=== PATIENT | male | born 1955 | race Caucasian/White ===

== ENCOUNTER 2016-06-07 19:11 | Emergency (ER) | payer OTHER ==
[2016-06-07] MEDS ORDERED: SULFAMETH/TRIMETH DS 800/160 MG TABLET PO STA (19:37)
[2016-06-07] MEDS ORDERED: HYDROcod/ACETAM 5/325 MG TABLET PO STA (19:37)
[2016-06-07] MEDS ORDERED: CEPHALEXIN 250 MG CAPSULE PO STA (19:37)
[2016-06-07] MEDS ORDERED: CEPHALEXIN 250 MG CAPSULE PO ONE (19:41)
[2016-06-07] MEDS ORDERED: HYDROcod/ACETAM 5/325 MG TABLET ONE (19:41)
[2016-06-07] MEDS ORDERED: SULFAMETH/TRIMETH DS 800/160 MG TABLET PO ONE (19:42)
[2016-06-07] MEDS ORDERED: LIDOCAINE 1%-EPI 1:100000 20 ML MDV ONE (19:44)
== END 2016-06-07 20:15 | disposition home or self-care (01) ==
DX: L02.31 Cutaneous abscess of buttock (principal); M19.90 Unspecified osteoarthritis, unspecified site; F17.200 Nicotine dependence, unspecified, uncomplicated; R03.0 Elevated blood-pressure reading, without diagnosis of hypertension
CPT/HCPCS: 10060; 87070; 87205; 99283; A9270

== ENCOUNTER 2016-06-09 | Emergency (ER) | payer OTHER | END 2016-06-09 13:31 | disposition home or self-care (01) ==

== ENCOUNTER 2016-07-12 19:35 | Emergency (ER) | payer OTHER ==
[2016-07-12 19:46] VITALS: BP 123/76
--- NOTE | 2016-07-12 20:19 | ED Physician Documentation ---
History of Present Illness - Stated complaint Stated Complaint: LT ARM PX - Chief complaint Chief Complaint: Ext Problem - History obtained from History obtained from: Patient, Family - History of Present Illness Timing: Other (several months) Pain level max: 1 Pain level now: 1 Improved by: nothing Worsened by: palpation - Additonal information Additional information: States noted a small swelling to the volar aspect of the left forearm for the past several weeks. Review of Systems Constitutional: denies: Fever, Chills Skin: denies: Rash PD PAST MEDICAL HISTORY - Past Medical History Past Medical History: Yes : Other Musculoskeletal: Osteoarthritis - Past Surgical History Past Surgical History: Yes General: Cholecystectomy - Present Medications Home Medications: Ambulatory Orders Medication Instructions Recorded Confirmed No Known Home Medications [No 07/12/16 07/12/16 Known Home Medications] - Allergies Allergies/Adverse Reactions: Allergies Allergy/AdvReac Type Severity Reaction Status Date / Time No Known Drug Allergies Allergy Verified 06/07/16 19:32 - Social History Does the pt smoke?: Yes Smoking Status: Current every day smoker Does the pt drink ETOH?: No Does the pt have substance abuse?: No - Immunizations Immunizations are current?: Yes - POLST Patient has POLST: No PD ED PE NORMAL - Vitals Vital signs reviewed: Yes - General General: Alert and oriented X 3, No acute distress - Derm Derm: Warm and dry - Extremities Extremities: Other (L forearm volar aspect - 1cm, mobile flesh colored cyst. ) - Neuro Neuro: Alert and oriented X 3 Results - Vitals Vitals: Vital Signs - 24 hr 07/12/16 19:43 Temperature 36.6 C Heart Rate 63 Respiratory 16 Rate Blood Pressure 123/76 O2 Saturation 100 Oxygen O2 Source Room air PD MEDICAL DECISION MAKING - ED course Complexity details: considered differential, d/w patient, d/w family ED course: Patient presents to the emergency department with a small cyst to the left forearm. This is on the volar aspect. Bedside ultrasound confirms the cyst. There is no evidence of infection. Will refer him back to his PCP for further evaluation. Patient counseled regarding signs and symptoms for which I believe and urgent re-evaluation would be necessary. Patient with good understanding of and agreement to plan and is comfortable going home at this time This document was made in part using voice recognition software. While efforts are made to proofread this document, sound alike and grammatical errors may occur. Departure - Departure Disposition: 01 Home, Self Care Clinical Impression: Cyst Condition: Good Instructions: ED Cyst Sebaceous Follow-Up: Naomie Nava MD [Primary Care Provider] - Within 1 week Comments: Return if you worsen. You can follow up with your doctor to talk about removal of this. Discharge Date/Time: 07/12/16 20:24
== END 2016-07-12 20:24 | disposition home or self-care (01) ==
LOC: ED 19:35
DX: L72.9 Follicular cyst of the skin and subcutaneous tissue, unspecified (principal); M19.90 Unspecified osteoarthritis, unspecified site; F17.200 Nicotine dependence, unspecified, uncomplicated
CPT/HCPCS: 99282; 99283

== ENCOUNTER 2016-09-29 04:10 | Emergency (ER) | payer OTHER ==
[2016-09-29 04:22] VITALS: BP 135/76
--- NOTE | 2016-09-29 04:23 | ED Physician Documentation ---
History of Present Illness - Stated complaint Stated Complaint: WEAKNESS,HEADACHE - Chief complaint Chief Complaint: General - History obtained from History obtained from: Patient - History of Present Illness Timing: Yesterday Improved by: no ameliorating factors Worsened by: no exacerbating factors - Additonal information Additional information: since yesterday morning, patient has had nasal/sinus congestion, dry/CADDIE cough, generalized body aches, fatigue Review of Systems Constitutional: reports: Myalgias, Fatigue. denies: Fever, Chills, Sweats Ears: denies: Ear pain Nose: reports: Congestion, Sinus pressure / pain Throat: denies: Sore throat Cardiac: denies: Chest pain / pressure Respiratory: reports: Cough. denies: Dyspnea GI: denies: Abdominal Pain PD PAST MEDICAL HISTORY - Past Medical History : Other Musculoskeletal: Osteoarthritis - Past Surgical History Past Surgical History: Yes General: Cholecystectomy - Present Medications Home Medications: Ambulatory Orders Medication Instructions Recorded Confirmed No Known Home Medications [No 07/12/16 07/12/16 Known Home Medications] - Allergies Allergies/Adverse Reactions: Allergies Allergy/AdvReac Type Severity Reaction Status Date / Time No Known Drug Allergies Allergy Verified 09/29/16 04:22 - Social History Does the pt smoke?: Yes Smoking Status: Current every day smoker Does the pt drink ETOH?: No Does the pt have substance abuse?: No - Immunizations Immunizations are current?: Yes - POLST Patient has POLST: No PD ED PE NORMAL - Vitals Vital signs reviewed: Yes - General General: Alert and oriented X 3, No acute distress, Well developed/nourished - HEENT HEENT: PERRL, EOMI, Moist mucous membranes, Pharynx benign - Cardiac Cardiac: RRR, No murmur - Respiratory Respiratory: No respiratory distress, Clear bilaterally Results - Vitals Vitals: Vital Signs - 24 hr 09/29/16 04:19 Temperature 36.6 C Heart Rate 78 Respiratory 17 Rate Blood Pressure 135/76 H O2 Saturation 98 Oxygen O2 Source Room air PD MEDICAL DECISION MAKING - ED course Complexity details: reviewed old records, considered differential, d/w patient Departure - Departure Disposition: 01 Home, Self Care Clinical Impression: Viral URI, Sinusitis Condition: Good Instructions: ED Sinusitis No Abx, ED Viral Syndrome Follow-Up: ALLEN Mejia [Provider Group] (3-5 days if symptoms have not resolved) Forms: Activity restrictions Discharge Date/Time: 09/29/16 04:41
== END 2016-09-29 04:41 | disposition home or self-care (01) ==
LOC: ED 04:10
DX: J06.9 Acute upper respiratory infection, unspecified (principal); B97.89 Other viral agents as the cause of diseases classified elsewhere; J32.9 Chronic sinusitis, unspecified; F17.200 Nicotine dependence, unspecified, uncomplicated
CPT/HCPCS: 99282; 99283

== ENCOUNTER 2017-02-15 11:16 | Emergency (ER) | payer OTHER ==
[2017-02-15 12:06] LABS: BASOPHILS # (AUTO) 0.1 10^3/uL (0.0-0.1); BASOPHILS % (AUTO) 0.7 %; EOSINOPHILS # (AUTO) 0.2 10^3/uL (0.0-0.7); EOSINOPHILS % (AUTO) 1.9 %; HCT - HEMATOCRIT 44.9 % (42.0-52.0); HGB - HEMOGLOBIN 15.5 g/dL (14.0-18.0); LYMPHOCYTES # (AUTO) 2.3 10^3/uL (1.5-3.5); LYMPHOCYTES % (AUTO) 22.5 %; MEAN CORPUSCULAR HEMOGLOBIN 31.4 pg (27.0-31.0); MEAN CORPUSCULAR HGB CONC 34.4 g/dL (32.0-36.0); MEAN CORPUSCULAR VOLUME 91.2 fL (80.0-94.0); MONOCYTES # (AUTO) 0.7 10^3/uL (0.0-1.0); MONOCYTES % (AUTO) 6.7 %; NEUTROPHILS # (AUTO) 6.9 10^3/uL (1.5-6.6); NEUTROPHILS % (AUTO) 68.2 %; NUCLEATED RED BLOOD CELLS AUTO 0.1 /100WBC; RED BLOOD COUNT 4.92 10^6/uL (4.70-6.10); RED CELL DISTRIBUTION WIDTH 14.1 % (12.0-15.0); UNCORRECTED WHITE BLOOD COUNT 10.2 x10^3/uL; WHITE BLOOD COUNT 10.2 x10^3/uL (4.8-10.8)
[2017-02-15 12:17] LABS: ALBUMIN/GLOBULIN RATIO 1.2 (1.0-2.2); BILIRUBIN,TOTAL 0.4 mg/dL (0.2-1.0); CALCIUM 9.4 mg/dL (8.5-10.3); CREATININE 0.9 mg/dL (0.6-1.2); POTASSIUM 3.9 mmol/L (3.5-5.0); TOTAL PROTEIN 7.2 g/dL (6.7-8.2)
--- NOTE | 2017-02-15 12:37 | ED Physician Documentation ---
PD HPI ABD PAIN - Stated complaint Stated Complaint: ABD PX - Chief complaint Chief Complaint: Abd Pain - History obtained from History obtained from: Patient - History of Present Illness Timing - onset: Other (61-year-old gentleman with history of remote cholecystectomy presents with mid abdominal pain radiating towards the flanks since 9 AM. It started suddenly while at work. It is somewhat better now, and he declines pain medication but it is not completely resolved. There was some nausea but no vomiting. He has never had this before. He has had normal bowel movements recently although he mentions it was a bit dark this morning.) Review of Systems Ten Systems: 10 systems reviewed and negative Constitutional: denies: Fever, Chills Cardiac: denies: Chest pain / pressure, Palpitations Respiratory: denies: Dyspnea, Cough GI: reports: Abdominal Pain, Nausea, Bloody / black stool. denies: Vomiting, Constipation, Diarrhea, Hematemesis PD PAST MEDICAL HISTORY - Past Medical History Past Medical History: Yes Cardiovascular: None Respiratory: None : Other Musculoskeletal: Osteoarthritis - Past Surgical History Past Surgical History: Yes General: Cholecystectomy - Present Medications Home Medications: Ambulatory Orders Medication Instructions Recorded Confirmed No Known Home Medications [No 07/12/16 02/15/17 Known Home Medications] - Allergies Allergies/Adverse Reactions: Allergies Allergy/AdvReac Type Severity Reaction Status Date / Time No Known Drug Allergies Allergy Verified 02/15/17 11:26 - Social History Does the pt smoke?: Yes Smoking Status: Current every day smoker Does the pt drink ETOH?: Yes Does the pt have substance abuse?: No - Immunizations Immunizations are current?: Yes - POLST Patient has POLST: No PD ED PE NORMAL - Vitals Vital signs reviewed: Yes - General General: Alert and oriented X 3, No acute distress - HEENT HEENT: PERRL, EOMI - Neck Neck: Supple, no meningeal sign, No bony TTP - Cardiac Cardiac: RRR, No murmur - Respiratory Respiratory: No respiratory distress, Clear bilaterally - Abdomen Abdomen: Other (Soft with diminished but not absent bowel tones, mild right lower quadrant tenderness without guarding or rebound.) - Male Male : Other (Brown guaiac negative stool, note made of multiple sebaceous glands and cysts as well as external hemorrhoids.) - Derm Derm: Normal color, Warm and dry - Neuro Neuro: Alert and oriented X 3, Normal speech - Psych Psych: Normal mood, Normal affect Results - Vitals Vitals: Vital Signs - 24 hr 02/15/17 02/15/17 02/15/17 11:23 11:34 12:14 Temperature 36.4 C L Heart Rate 61 63 64 Respiratory 18 16 14 Rate Blood Pressure 159/84 H 145/86 H O2 Saturation 97 100 97 02/15/17 14:07 Temperature Heart Rate 64 Respiratory 15 Rate Blood Pressure 116/63 O2 Saturation 98 Oxygen O2 Source Room air - EKG (time done) 1250 Rate: Rate (enter#) (59) Rhythm: NSR [place]: Normal Intervals: Prolonged MA (borderline 207 msec), Other (LAFB) Ischemia: No: ST elevation c/w ischemia Computer interpretation: Agree with computer - Labs Labs: Laboratory Tests 02/15/17 02/15/17 02/15/17 11:55 11:55 13:01 WBC 10.2 RBC 4.92 Hgb 15.5 Hct 44.9 MCV 91.2 MCH 31.4 H MCHC 34.4 RDW 14.1 Plt Count 217 MPV 8.0 Neut # 6.9 H Lymph # 2.3 [place] # 0.7 Eos # 0.2 Baso # 0.1 Absolute Nucleated RBC 0.01 Nucleated RBC % 0.1 Sodium 138 Potassium 3.9 Chloride 102 Carbon Dioxide 26 Anion Gap 10.0 BUN 10 Creatinine 0.9 Estimated GFR (MDRD) 86 L Glucose 108 H Calcium 9.4 Total Bilirubin 0.4 AST 25 ALT 22 Alkaline Phosphatase 100 Total Protein 7.2 Albumin 3.9 Globulin 3.3 Albumin/Globulin Ratio 1.2 Lipase 15 L Urine Color YELLOW Urine Clarity CLEAR Urine pH 7.0 Ur Specific [place] 1.020 Urine Protein NEGATIVE Urine Glucose (UA) NEGATIVE Urine Ketones TRACE Urine Occult Blood NEGATIVE Urine Nitrite NEGATIVE Urine Bilirubin NEGATIVE Urine Urobilinogen 0.2 (NORMAL) Ur Leukocyte Esterase TRACE H Urine RBC 0-5 Urine WBC 0-3 Ur Squamous Epith Cells NONE SEEN Urine Bacteria Rare Ur Microscopic Review INDICATED Urine Culture Comments INDICATED - Rads (name of study) CT A/P Radiology: EMP read contemporaneously (Dilated mid small bowel with small bowel mesenteric edema or inflammation consistent with a partial mid small bowel obstruction versus focal enteritis. Very small free fluid, prostatic enlargement, incidental renal cyst and complicated renal cyst unchanged since 2015, small fat-containing right inguinal hernia.) PD MEDICAL DECISION MAKING - ED course ED course: 61-year-old gentleman presents with acute abdominal pain, has been found to have a partial mid small bowel obstruction, I spoke with our surgeon on the phone, Dr. Mendoza who was concerned about the small amount of free fluid found on the examination and given that felt there was a high suspicion that the patient would progress to requiring a surgical procedure and recommended the patient be transferred as the operating room is closed for renovations for the next 3 days. Accepted by Monae the hospitalist at [facility] at 2:58 PM pending that I also speak with the surgeon there as well and the transfer supervisor extrusion will call me back for that consultation. Spoke with the surgeon there, Dr Larsen at [phone] Departure - Departure Disposition: 02 Transfer Acute Care Hosp Clinical Impression: Small bowel obstruction Condition: Stable
[2017-02-15] MEDS ORDERED: IOPAMIDOL-300 100 ML VIAL ONE (12:48)
[2017-02-15] MEDS ORDERED: IOPAMIDOL-300 100 ML VIAL IVP ONE (12:51)
[2017-02-15 13:23] LABS: BILIRUBIN,URINE NEGATIVE (NEGATIVE)
[2017-02-15 13:25] LABS: UA w/ MICROSCOPIC CHARGE YES
[2017-02-15 13:37] LABS: UR CULTURE IF IND INDICATED; WBC,URINE 0-3 /HPF (0-3)
[2017-02-15] MEDS ORDERED: MORPHINE 10 MG/ML VIAL IVP STA (13:44)
--- NOTE | 2017-02-15 13:48 | CT Preliminary Report ---
Exam: CT ABDOMEN/PELVIS W/ IMPRESSION: 1. Dilated mid small bowel with small bowel mesenteric edema or inflammation. Findings consistent wit h a partial mid small bowel obstruction versus focal enteritis. 2. Very small free fluid. 3. Prostate enlargement. 4. Incidental simple renal cysts and a complex renal cyst in the upper pole of the right kidney is un changed since 2015. 5. Small fat-containing right inguinal hernia. [facility] SITE ID: [id number]
--- NOTE | 2017-02-15 13:51 | CT Report ---
EXAM: CT ABDOMEN AND PELVIS EXAM DATE: 02/15/2017 01:14 PM. CLINICAL HISTORY: IV only, mid abd pain, RLQ TTP. COMPARISONS: 06/21/2014. TECHNIQUE: Routine helical CT imaging was performed through the abdomen and pelvis. IV contrast: 100M L OF ISOVUE 300. Enteric contrast: No. Reconstructions: Coronal and sagittal. In accordance with CT protocol optimization, one or more of the following dose reduction techniques w ere utilized for this exam: automated exposure control, adjustment of mA and/or KV based on patient s ize, or use of iterative reconstructive technique. FINDINGS: Lung Bases: Unremarkable. Liver: The liver is normal in size. There are 2 small round subcentimeter low-density lesions in the liver which are too small to characterize but probably cysts. Gallbladder/Bile Ducts: Gallbladder is absent. Spleen: Normal. Pancreas: Normal. Adrenal Glands: Normal. Kidneys: There is a small exophytic hyperdense nodule in the upper pole of the right kidney with a de nsity of 66 Hounsfield units. Density measures 1 cm in diameter. This density is unchanged in size si nce 06/21/2014. There is contrast in the collecting system of both kidneys. There are bilateral renal cysts. No hydronephrosis. Peritoneal Cavity/Bowel: There are mildly dilated small bowel loops in the upper abdomen with a few a ir-fluid levels. Small bowel loops in the upper abdomen measure up to 2.8 cm in diameter. There is me senteric edema of the small bowel mesentery in the pelvis at the mid small bowel level. The distal sm all bowel appears decompressed. There is a very small amount of free fluid. No abscess or free air. Pelvic Organs: There is a fat-containing right inguinal hernia. The prostate appears enlarged and het erogeneous. The prostate measures 6.8 x 6.7 x 8.2 cm. Vasculature: No aneurysms or other significant abnormality. Other: None. IMPRESSION: 1. Dilated mid small bowel with small bowel mesenteric edema or inflammation. Findings consistent wit h a partial mid small bowel obstruction versus focal enteritis. 2. Very small free fluid. 3. Prostate enlargement. 4. Incidental simple renal cysts and a complex renal cyst in the upper pole of the right kidney is un changed since 2014. 5. Small fat-containing right inguinal hernia. [facility] Referring Provider Line: [phone] SITE ID: [id number]
[2017-02-15] MEDS ORDERED: MORPHINE 10 MG/ML VIAL ONE (14:09)
[2017-02-15] MEDS ORDERED: SODIUM CHLORIDE 0.9% 1,000 ML IV ONE (15:07)
[2017-02-15 16:20] VITALS: BP 136/82
== END 2017-02-15 16:47 | disposition short-term general hospital (02) ==
LOC: ED 11:16
DX: K56.609 Unspecified intestinal obstruction, unspecified as to partial versus complete obstruction (principal); I44.4 Left anterior fascicular block; R94.31 Abnormal electrocardiogram [ECG] [EKG]; M19.90 Unspecified osteoarthritis, unspecified site; F17.200 Nicotine dependence, unspecified, uncomplicated
CPT/HCPCS: 36415; 74177; 80053; 81001; 83690; 85025; 87086; 93005; 96361; 96374; 99284; 99285; Q9967; 81003

== ENCOUNTER 2017-02-15 16:49 | Outpatient (CLI) | payer OTHER | END 2017-02-15 16:50 | disposition short-term general hospital (02) | LOC: EMS 16:49 | PROVIDERS: ATTEND Surgery | DX: K56.609 Unspecified intestinal obstruction, unspecified as to partial versus complete obstruction (principal) | CPT/HCPCS: A0425; A0426 ==

== ENCOUNTER 2017-06-30 04:25 | Emergency (ER) | payer OTHER ==
--- NOTE | 2017-06-30 05:21 | ED Physician Documentation ---
PD HPI ABD PAIN - Stated complaint Stated Complaint: ABD PX - Chief complaint Chief Complaint: Abd Pain - History obtained from History obtained from: Patient - History of Present Illness Timing - onset: Yesterday Timing - details: Gradual onset, Intermittant, Waxing and waning Pain level now: 2 Quality: Cramping, Pain Location: All over / everywhere (varies in location, predominantly left-sided and periumbilical) Radiation: Other (no radiation) Improved by: Other (no ameliorating factors) Worsened by: Other (no apparent exacerbating factors) Associated symptoms: No: Fever, Nausea, Vomiting, Diarrhea, Constipation, Dysuria Similar symptoms before: Other (evaluated for similar symptoms in this ED in the past, w/u included unremarkable as well as SBO) Review of Systems Constitutional: reports: Reviewed and negative Cardiac: reports: Reviewed and negative Respiratory: reports: Reviewed and negative GI: reports: Abdominal Pain. denies: Nausea, Vomiting, Constipation, Diarrhea : denies: Dysuria, Frequency PD PAST MEDICAL HISTORY - Past Medical History Past Medical History: Yes Cardiovascular: None Respiratory: None GI: Cholelithiasis : Other Musculoskeletal: Osteoarthritis - Past Surgical History Past Surgical History: Yes General: Cholecystectomy - Present Medications Home Medications: Ambulatory Orders Medication Instructions Recorded Confirmed No Known Home Medications [No 07/12/16 02/15/17 Known Home Medications] - Allergies Allergies/Adverse Reactions: Allergies Allergy/AdvReac Type Severity Reaction Status Date / Time No Known Drug Allergies Allergy Verified 06/30/17 04:30 - Social History Does the pt smoke?: Yes Smoking Status: Current every day smoker Does the pt drink ETOH?: Yes Does the pt have substance abuse?: No - Immunizations Immunizations are current?: No Immunizations: TDAP >10years/unknown - POLST Patient has POLST: No PD ED PE NORMAL - Vitals Vital signs reviewed: Yes - General General: Alert and oriented X 3, No acute distress, Well developed/nourished - HEENT HEENT: Moist mucous membranes - Cardiac Cardiac: RRR, No murmur - Respiratory Respiratory: No respiratory distress, Clear bilaterally - Abdomen Abdomen: Normal bowel sounds, Soft, Non tender, Non distended - Derm Derm: Normal color, Warm and dry Results - Vitals Vitals: Oxygen O2 Source Room air - Labs Labs: Laboratory Tests 06/30/17 06/30/17 06/30/17 05:58 06:25 06:25 WBC 9.2 RBC 5.15 Hgb 15.8 Hct 47.6 MCV 92.4 MCH 30.7 MCHC 33.2 RDW 13.9 Plt Count 228 MPV 7.9 Neut # 6.2 Lymph # 2.1 [place] # 0.7 Eos # 0.2 Baso # 0.1 Absolute Nucleated RBC 0.00 Nucleated RBC % 0.0 Sodium 138 Potassium 4.6 Chloride 106 Carbon Dioxide 27 Anion Gap 5.0 L BUN 11 Creatinine 0.8 Estimated GFR (MDRD) 99 Glucose 107 H Calcium 9.1 Total Bilirubin 0.7 AST 21 ALT 23 Alkaline Phosphatase 90 Total Protein 7.0 Albumin 3.7 Globulin 3.3 Albumin/Globulin Ratio 1.1 Lipase 15 L Urine Color YELLOW Urine Clarity CLEAR Urine pH 6.0 Ur Specific [place] 1.020 Urine Protein NEGATIVE Urine Glucose (UA) NEGATIVE Urine Ketones NEGATIVE Urine Occult Blood NEGATIVE Urine Nitrite NEGATIVE Urine Bilirubin NEGATIVE Urine Urobilinogen 0.2 (NORMAL) Ur Leukocyte Esterase NEGATIVE Ur Microscopic Review NOT INDICATED Urine Culture Comments NOT INDICATED - Rads (name of study) acute abdomen xrays Radiology: Prelim report reviewed, See rad report PD MEDICAL DECISION MAKING - ED course Complexity details: reviewed old records, reviewed results, re-evaluated patient , considered differential, d/w patient ED course: patient presents with less than 24 hours of mild abdominal discomfort without nausea, vomiting, or diarrhea. His abdominal exam is entirely benign. unremarkable w/u. his chief concern was he felt he waited too long when he last came to this ED and was diagnosed with SBO (he says that the receiving hospital did further evaluation including upper and lower endoscopy and did not come to a specific diagnosis; he says no surgery was performed), and thus he did not want to wait until symptoms worsened. he is reassured with the unremarkable test results at this time Departure - Departure Disposition: 01 Home, Self Care Clinical Impression: Abdominal pain Condition: Good Instructions: ED Abdominal Pain Unkn Cause Male Forms: Activity restrictions Discharge Date/Time: 06/30/17 08:09
[2017-06-30 06:18] LABS: BILIRUBIN,URINE NEGATIVE (NEGATIVE); GLUCOSE, URINE (UA) NEGATIVE (NEGATIVE); KETONES,URINE (UA) NEGATIVE (NEGATIVE); LEUKOCYTE ESTERASE, URINE NEGATIVE (NEGATIVE); NITRITE,URINE NEGATIVE (NEGATIVE); OCCULT BLOOD,URINE NEGATIVE (NEGATIVE); PROTEIN,URINE NEGATIVE (NEGATIVE); UROBILINOGEN,URINE 0.2 (NORMAL) E.U./dL (NORMAL)
[2017-06-30 06:21] LABS: CLARITY,URINE CLEAR (CLEAR)
[2017-06-30 06:34] LABS: BASOPHILS # (AUTO) 0.1 10^3/uL (0.0-0.1); BASOPHILS % (AUTO) 0.6 %; EOSINOPHILS # (AUTO) 0.2 10^3/uL (0.0-0.7); EOSINOPHILS % (AUTO) 2.1 %; HGB - HEMOGLOBIN 15.8 g/dL (14.0-18.0); LYMPHOCYTES # (AUTO) 2.1 10^3/uL (1.5-3.5); LYMPHOCYTES % (AUTO) 22.7 %; MEAN CORPUSCULAR HEMOGLOBIN 30.7 pg (27.0-31.0); MEAN CORPUSCULAR HGB CONC 33.2 g/dL (32.0-36.0); MEAN CORPUSCULAR VOLUME 92.4 fL (80.0-94.0); MEAN PLATELET VOLUME 7.9 fL (7.4-11.4); MONOCYTES # (AUTO) 0.7 10^3/uL (0.0-1.0); MONOCYTES % (AUTO) 7.3 %; NEUTROPHILS # (AUTO) 6.2 10^3/uL (1.5-6.6); NEUTROPHILS % (AUTO) 67.3 %; PLT - PLATELET COUNT 228 10^3/uL (130-450); RED BLOOD COUNT 5.15 10^6/uL (4.70-6.10); RED CELL DISTRIBUTION WIDTH 13.9 % (12.0-15.0); WHITE BLOOD COUNT 9.2 x10^3/uL (4.8-10.8)
--- NOTE | 2017-06-30 06:38 | XRAY Report ---
EXAM: ABDOMINAL SERIES AND PA CHEST EXAM DATE: 06/30/2017 06:21 AM. CLINICAL HISTORY: Abdominal pain. COMPARISON: Chest, 06/27/2013. TECHNIQUE: 2 views abdomen and 1 view chest. FINDINGS: CHEST: Lungs/Pleura: No alveolar consolidation or pleural effusion seen. No pneumothorax. Mediastinum: Within exam limitations, cardiomediastinal contour is normal. ABDOMEN: Bowel Gas Pattern: No dilated loops or abnormal air-fluid levels. Moderate to large amount of stool i n the colon. Free Air: None. Other: Status post cholecystectomy. IMPRESSION: 1. Normal gas pattern with moderate to large amount of stool in the colon. [facility] Referring Provider Line: [phone] SITE ID: [id number]
--- NOTE | 2017-06-30 06:38 | XRAY Preliminary Report ---
Exam: XR ABDOMEN ACUTE IMPRESSION: 1. Normal gas pattern with moderate to large amount of stool in the colon. [facility] SITE ID: [id number]
[2017-06-30 06:42] LABS: ALBUMIN 3.7 g/dL (3.2-5.5); ALBUMIN/GLOBULIN RATIO 1.1 (1.0-2.2); BILIRUBIN,TOTAL 0.7 mg/dL (0.2-1.0); CALCIUM 9.1 mg/dL (8.5-10.3); CREATININE 0.8 mg/dL (0.6-1.2)
[2017-06-30] MEDS ORDERED: MAGNESIUM CITRATE 296 ML BOTTLE PO STA (07:54)
[2017-06-30 08:06] VITALS: BP 123/72
== END 2017-06-30 08:09 | disposition home or self-care (01) ==
LOC: ED 04:25
DX: R10.9 Unspecified abdominal pain (principal); F17.200 Nicotine dependence, unspecified, uncomplicated
CPT/HCPCS: 36415; 74022; 80053; 81003; 83690; 85025; 99283; A9270; 81001; 87086

== ENCOUNTER 2017-08-11 10:58 | Emergency (ER) | payer OTHER ==
[2017-08-11 12:11] LABS: BASOPHILS # (AUTO) 0.1 10^3/uL (0.0-0.1); BASOPHILS % (AUTO) 0.5 %; EOSINOPHILS % (AUTO) 0.3 %; HGB - HEMOGLOBIN 15.4 g/dL (14.0-18.0); LYMPHOCYTES # (AUTO) 1.2 10^3/uL (1.5-3.5); LYMPHOCYTES % (AUTO) 9.5 %; MEAN CORPUSCULAR HEMOGLOBIN 31.2 pg (27.0-31.0); MEAN CORPUSCULAR HGB CONC 33.8 g/dL (32.0-36.0); MEAN CORPUSCULAR VOLUME 92.3 fL (80.0-94.0); MEAN PLATELET VOLUME 7.9 fL (7.4-11.4); MONOCYTES # (AUTO) 0.7 10^3/uL (0.0-1.0); MONOCYTES % (AUTO) 5.8 %; NEUTROPHILS # (AUTO) 10.6 10^3/uL (1.5-6.6); NEUTROPHILS % (AUTO) 83.9 %; PLT - PLATELET COUNT 207 10^3/uL (130-450); RED BLOOD COUNT 4.95 10^6/uL (4.70-6.10); WHITE BLOOD COUNT 12.7 x10^3/uL (4.8-10.8)
[2017-08-11 12:15] LABS: BILIRUBIN,URINE NEGATIVE (NEGATIVE); GLUCOSE, URINE (UA) NEGATIVE (NEGATIVE); KETONES,URINE (UA) NEGATIVE (NEGATIVE); LEUKOCYTE ESTERASE, URINE NEGATIVE (NEGATIVE); NITRITE,URINE NEGATIVE (NEGATIVE); OCCULT BLOOD,URINE NEGATIVE (NEGATIVE); PROTEIN,URINE NEGATIVE (NEGATIVE); UROBILINOGEN,URINE 0.2 (NORMAL) E.U./dL (NORMAL)
[2017-08-11 12:16] LABS: ALBUMIN 3.5 g/dL (3.2-5.5); CALCIUM 8.7 mg/dL (8.5-10.3); CREATININE 0.9 mg/dL (0.6-1.2)
[2017-08-11 12:20] LABS: CLARITY,URINE CLEAR (CLEAR)
--- NOTE | 2017-08-11 13:00 | ED Physician Documentation ---
PD HPI ABD PAIN - Stated complaint Stated Complaint: ABD PX/HEADACHE - Chief complaint Chief Complaint: Abd Pain - History obtained from History obtained from: Patient - History of Present Illness Timing - onset: Today Timing - duration: Hours (few) Timing - details: Abrupt onset, Still present, Waxing and waning Quality: Cramping, Aching, Pain Location: All over / everywhere Radiation: No: Lower back Improved by: No: Eating, Position Worsened by: Eating, Palpation. No: Position Associated symptoms: Nausea. No: Fever, Vomiting, Diarrhea, Constipation (had had normal but firm BMs recently, but none today nor yesterday.) Similar symptoms before: Diagnosis (has had episodes that resolve with fluids and meds; and has had a bowel obstruction in the past, did not need surgery but was in hospital 5 days.) Review of Systems Constitutional: denies: Fever, Chills Nose: denies: Rhinorrhea / runny nose, Congestion Throat: denies: Sore throat Respiratory: denies: Cough GI: reports: Abdominal Pain, Nausea. denies: Abdominal Swelling, Vomiting, Diarrhea, Hematemesis, Bloody / black stool : denies: Dysuria, Frequency Skin: denies: Rash, Lesions PD PAST MEDICAL HISTORY - Past Medical History Past Medical History: Yes Cardiovascular: None Respiratory: None GI: Cholelithiasis : Other Musculoskeletal: Osteoarthritis Other Past Medical History: bowel obstruction relief with NG - Past Surgical History Past Surgical History: Yes General: Cholecystectomy - Present Medications Home Medications: Ambulatory Orders Medication Instructions Recorded Confirmed No Known Home Medications [No 07/12/16 08/11/17 Known Home Medications] - Allergies Allergies/Adverse Reactions: Allergies Allergy/AdvReac Type Severity Reaction Status Date / Time No Known Drug Allergies Allergy Verified 08/11/17 12:55 - Social History Does the pt smoke?: Yes Smoking Status: Current every day smoker Does the pt drink ETOH?: Yes Does the pt have substance abuse?: No - Immunizations Immunizations are current?: No Immunizations: TDAP >10years/unknown - POLST Patient has POLST: No PD ED PE NORMAL - Vitals Vital signs reviewed: Yes - General General: Alert and oriented X 3, No acute distress, Well developed/nourished - HEENT HEENT: Pharynx benign - Neck Neck: Supple, no meningeal sign, No adenopathy - Cardiac Cardiac: RRR, No murmur - Respiratory Respiratory: Clear bilaterally - Abdomen Abdomen: Normal bowel sounds, Soft, Non distended, No organomegaly, Other ( tender mid abdomen without guarding nor percussion tenderness. ) - Derm Derm: Normal color, Warm and dry - Extremities Extremities: No deformity, No tenderness to palpate, No edema, No calf tenderness / cord - Neuro Neuro: Alert and oriented X 3, No motor deficit, Normal speech Results - Vitals Vitals: Vital Signs - 24 hr 08/11/17 08/11/17 08/11/17 11:13 12:58 14:39 Temperature 37.6 C H 38.2 C H 36.9 C Heart Rate 77 75 72 Respiratory 16 18 16 Rate Blood Pressure 132/66 H 124/75 124/62 O2 Saturation 98 98 100 Oxygen O2 Source Room air - Labs Labs: Laboratory Tests 08/11/17 08/11/17 08/11/17 11:50 11:57 11:57 WBC 12.7 H RBC 4.95 Hgb 15.4 Hct 45.7 MCV 92.3 MCH 31.2 H MCHC 33.8 RDW 14.0 Plt Count 207 MPV 7.9 Neut # 10.6 H Lymph # 1.2 L [place] # 0.7 Eos # 0.0 Baso # 0.1 Absolute Nucleated RBC 0.00 Nucleated RBC % 0.0 Sodium 133 L Potassium 3.4 L Chloride 100 L Carbon Dioxide 25 Anion Gap 8.0 BUN 11 Creatinine 0.9 Estimated GFR (MDRD) 86 L Glucose 106 H Calcium 8.7 Total Bilirubin 1.0 AST 19 ALT 17 Alkaline Phosphatase 95 Total Protein 7.0 Albumin 3.5 Globulin 3.5 Albumin/Globulin Ratio 1.0 Lipase 16 L Urine Color YELLOW Urine Clarity CLEAR Urine pH 6.0 Ur Specific [place] 1.025 Urine Protein NEGATIVE Urine Glucose (UA) NEGATIVE Urine Ketones NEGATIVE Urine Occult Blood NEGATIVE Urine Nitrite NEGATIVE Urine Bilirubin NEGATIVE Urine Urobilinogen 0.2 (NORMAL) Ur Leukocyte Esterase NEGATIVE Ur Microscopic Review NOT INDICATED Urine Culture Comments NOT INDICATED PD MEDICAL DECISION MAKING - ED course Complexity details: considered differential (has history of SBO so is concerned about it, but clinically low suspicion. Given some meds and fluids and feels okay. Defer imaging. ), d/w patient Departure - Departure Disposition: 01 Home, Self Care Clinical Impression: Abdominal pain Clinical Impression: (Ruled Out): Small bowel obstruction Condition: Stable Record reviewed to determine appropriate education?: Yes Instructions: ED Abdominal Pain Unkn Cause Comments: Drink lots of fluids. Liquid or soft food only today and then progress to normal if doing okay after that. Tylenol if needed for mild pains. Use a daily stool softener. Return if symptoms develop again or other concerns. This may be a little partial blockage or so but seems to be resolving and so commonly would be treated at home with the above instructions. Forms: Activity restrictions Discharge Date/Time: 08/11/17 14:41
[2017-08-11] MEDS ORDERED: KETOROLAC 60 MG/2 ML VIAL IVP STA (13:19)
[2017-08-11] MEDS ORDERED: DOCUSATE SODIUM 100 MG CAPSULE PO STA (13:19)
[2017-08-11] MEDS ORDERED: ONDANSETRON 4 MG/2 ML VIAL IVP STA (13:19)
[2017-08-11] MEDS ORDERED: SODIUM CHLORIDE 0.9% 1,000 ML IV ONE (13:19)
[2017-08-11 14:40] VITALS: BP 124/62
== END 2017-08-11 14:41 | disposition home or self-care (01) ==
LOC: ED 10:58
DX: R10.9 Unspecified abdominal pain (principal); F17.200 Nicotine dependence, unspecified, uncomplicated
CPT/HCPCS: 36415; 80053; 81003; 83690; 85025; 96361; 96374; 96375; 99283; 99284; A9270; 81001; 87086

== ENCOUNTER 2018-01-08 11:28 | Emergency (ER) | payer OTHER ==
--- NOTE | 2018-01-08 12:42 | ED Physician Documentation ---
PD HPI SKIN - Stated complaint Stated Complaint: MALE - Chief complaint Chief Complaint: General - History obtained from History obtained from: Patient - History of Present Illness Timing - onset: How many weeks ago (1) Timing - duration: Weeks (1) Timing - details: Gradual onset, Still present Location: Other (inguinal and scrotal area) Quality / character: Itchy, Painful, Burning Improved by: Other (just washing in baths.) Associated symptoms: No: Fever, Myalgias Contributing factors: No: Exposed to soap / lotion, Recent illness Similar symptoms before: Has not had sx before Recently seen: Not recently seen Review of Systems Constitutional: denies: Fever, Chills, Myalgias GI: denies: Nausea, Vomiting, Diarrhea : denies: Dysuria PD PAST MEDICAL HISTORY - Past Medical History Cardiovascular: None Respiratory: None Neuro: None GI: Cholelithiasis : Other HEENT: None Psych: None Musculoskeletal: Osteoarthritis - Past Surgical History Past Surgical History: Yes General: Cholecystectomy - Present Medications Home Medications: Ambulatory Orders Medication Instructions Recorded Confirmed Clotrimazole/Betamethasone Dip 1 applic TP BID #30 cream..g. 01/08/18 [Clotrimazole-Betamethasone Crm] - Allergies Allergies/Adverse Reactions: Allergies Allergy/AdvReac Type Severity Reaction Status Date / Time No Known Drug Allergies Allergy Verified 01/08/18 11:36 - Social History Does the pt smoke?: Yes Smoking Status: Current every day smoker Does the pt drink ETOH?: Yes Does the pt have substance abuse?: No - Immunizations Immunizations are current?: No Immunizations: TDAP >10years/unknown - POLST Patient has POLST: No PD ED PE NORMAL - Vitals Vital signs reviewed: Yes - General General: Alert and oriented X 3, No acute distress, Well developed/nourished - Abdomen Abdomen: Soft, Non tender - Male Male : Other (inguinal and scrotal area with redness and mild inflammation. Minimal tenderness. Redness has demarcated edge in crural area. No vesicles nor skin breakdown. ) - Back Back: No CVA TTP - Derm Derm: Normal color, Warm and dry Results - Vitals Vitals: Vital Signs - 24 hr 01/08/18 11:32 Temperature 36.1 C L Heart Rate 70 Respiratory 16 Rate Blood Pressure 127/71 O2 Saturation 100 Oxygen O2 Source Room air PD MEDICAL DECISION MAKING - Sepsis Event Vital Signs: Vital Signs - 24 hr 01/08/18 11:32 Temperature 36.1 C L Heart Rate 70 Respiratory 16 Rate Blood Pressure 127/71 O2 Saturation 100 Oxygen O2 Source Room air Departure - Departure Disposition: 01 Home, Self Care Clinical Impression: Tinea cruris Condition: Stable Record reviewed to determine appropriate education?: Yes Instructions: ED Tinea Cruris General Prescriptions: Clotrimazole/Betamethasone Dip [Clotrimazole-Betamethasone Crm] 1 applic TP BID #30 cream..g. Comments: This looks like a yeast infection in the creases. Cleanse the area with soap and water twice daily and apply the combination cream of antifungal with anti- inflammatory. Continue this until this completely cleared up to likely be a week or so. Recheck if not better over that time. Forms: Activity restrictions Discharge Date/Time: 01/08/18 12:50
[2018-01-08 12:47] VITALS: BP 142/70
== END 2018-01-08 12:50 | disposition home or self-care (01) ==
LOC: ED 11:28
DX: B35.6 Tinea cruris (principal); F17.200 Nicotine dependence, unspecified, uncomplicated
CPT/HCPCS: 99283

== ENCOUNTER 2018-01-15 18:09 | Emergency (ER) | payer OTHER ==
[2018-01-15] MEDS ORDERED: cephALEXin 250 MG CAPSULE PO STA (20:08)
[2018-01-15] MEDS ORDERED: SULFAMETH/TRIMETH DS 800/160 MG TABLET PO STA (20:08)
--- NOTE | 2018-01-15 20:12 | ED Physician Documentation ---
History of Present Illness - Stated complaint Stated Complaint: MALE - Chief complaint Chief Complaint: General - History obtained from History obtained from: Patient, Family - History of Present Illness Timing: Other (elizabet) Pain level max: 5 Pain level now: 5 - Additonal information Additional information: Patient with rash to the groin. states seen here a week ago for same. states drained pus and not improving. denies any fever, chills, nausea or vomiting. Review of Systems Constitutional: denies: Fever, Chills Ears: denies: Ear pain Nose: denies: Rhinorrhea / runny nose, Congestion Throat: denies: Sore throat Cardiac: denies: Chest pain / pressure Respiratory: denies: Cough GI: denies: Abdominal Pain, Nausea, Vomiting, Diarrhea Musculoskeletal: denies: Neck pain, Back pain Neurologic: denies: Headache PD PAST MEDICAL HISTORY - Past Medical History Past Medical History: Yes Cardiovascular: None Respiratory: None Neuro: None GI: Cholelithiasis : Other HEENT: None Psych: None Musculoskeletal: Osteoarthritis - Past Surgical History Past Surgical History: Yes General: Cholecystectomy - Present Medications Home Medications: Ambulatory Orders Medication Instructions Recorded Confirmed Clotrimazole/Betamethasone Dip 1 applic TP BID #30 cream..g. 01/08/18 [Clotrimazole-Betamethasone Crm] Cephalexin [Keflex] 500 mg PO Q6H #40 capsule 01/15/18 Nystatin 1 applic TP BID PRN #1 powder 01/15/18 Sulfamethox/Trimeth 800/160 1 each PO BID #20 tablet 01/15/18 [Bactrim Ds 800/160] - Allergies Allergies/Adverse Reactions: Allergies Allergy/AdvReac Type Severity Reaction Status Date / Time No Known Drug Allergies Allergy Verified 01/15/18 18:16 - Social History Does the pt smoke?: Yes Smoking Status: Current every day smoker Does the pt drink ETOH?: Yes Does the pt have substance abuse?: No - Immunizations Immunizations are current?: No Immunizations: TDAP >10years/unknown - POLST Patient has POLST: No PD ED PE NORMAL - Vitals Vital signs reviewed: Yes - General General: Alert and oriented X 3, No acute distress - HEENT HEENT: Moist mucous membranes - Neck Neck: Supple, no meningeal sign - Male Male : Other (perineum is erythematous, inflammed and swollen. no fluctuance. ) - Derm Derm: Warm and dry - Neuro Neuro: Alert and oriented X 3 - Psych Psych: Normal mood, Normal affect Results - Vitals Vitals: Vital Signs - 24 hr 01/15/18 18:14 Temperature 36.2 C L Heart Rate 71 Respiratory 20 Rate Blood Pressure 135/81 H O2 Saturation 98 Oxygen O2 Source Room air PD MEDICAL DECISION MAKING - ED course Complexity details: considered differential, d/w patient ED course: Patient is a 62-year-old male who presents to the emergency department with what appears to be a rash to the perineal area that has secondarily become infected. Will place on Bactrim and Keflex in addition to nystatin powder. Will attempt to dry out the area. Patient is very well-appearing, nontoxic. No drainable abscess at this point. Patient counseled regarding signs and symptoms for which I believe and urgent re-evaluation would be necessary. Patient with good understanding of and agreement to plan and is comfortable going home at this time This document was made in part using voice recognition software. While efforts are made to proofread this document, sound alike and grammatical errors may occur. - Sepsis Event Vital Signs: Vital Signs - 24 hr 01/15/18 18:14 Temperature 36.2 C L Heart Rate 71 Respiratory 20 Rate Blood Pressure 135/81 H O2 Saturation 98 Oxygen O2 Source Room air Departure - Departure Disposition: 01 Home, Self Care Clinical Impression: Cellulitis Qualifiers: Site of cellulitis: trunk Site of cellulitis of trunk: perineum Qualified Code(s): L03.315 - Cellulitis of perineum Condition: Good Instructions: ED Infec Skin Cellulitis Follow-Up: your,doctor in 3 days for wound check [Other] Prescriptions: Cephalexin [Keflex] 500 mg PO Q6H #40 capsule Nystatin 1 applic TP BID PRN #1 powder PRN Reason: rash Sulfamethox/Trimeth 800/160 [Bactrim Ds 800/160] 1 each PO BID #20 tablet Comments: Take all antibiotics until gone. Return if you worsen. This should improve over the next few days but will likely take a week or more to fully resolve. Discharge Date/Time: 01/15/18 20:23
[2018-01-15 20:22] VITALS: BP 141/91
== END 2018-01-15 20:23 | disposition home or self-care (01) ==
LOC: ED 18:09
DX: L03.315 Cellulitis of perineum (principal); F17.200 Nicotine dependence, unspecified, uncomplicated
CPT/HCPCS: 99283; A9270

== ENCOUNTER 2018-03-08 07:35 | Emergency (ER) | payer OTHER ==
[2018-03-08 07:42] VITALS: BP 142/77
--- NOTE | 2018-03-08 07:55 | ED Physician Documentation ---
PD HPI BACK INJURY - Stated complaint Stated Complaint: BACK PX - History obtained from History obtained from: Patient - History of Present Illness Location: Both, Lower Type of injury: Twist (lifting heavy furniture and felt pop/onset of low back pain) Where injury occurred: Home Timing - onset: How many days ago (4) Timing - duration: Days (4 days ago had onset of the pain and was out of work for 3 days. Improved pain and went to work today, but was feeling pain with being up and around. No new injury today.) Timing - details: Abrupt onset, Still present Quality: Pain, Spasm Worsened by: Moving, Palpating Associated symptoms: No: Fever, Weakness, Numbness, Incontinent of urine Recently seen: Not recently seen Review of Systems Constitutional: denies: Fever, Chills, Myalgias Nose: denies: Rhinorrhea / runny nose, Congestion Throat: denies: Sore throat Respiratory: denies: Cough GI: denies: Abdominal Pain, Nausea, Vomiting, Diarrhea : denies: Dysuria, Frequency Skin: denies: Rash, Lesions Neurologic: denies: Focal weakness, Numbness PD PAST MEDICAL HISTORY - Past Medical History Cardiovascular: None Respiratory: None Neuro: None GI: Cholelithiasis : Other HEENT: None Psych: None Musculoskeletal: Osteoarthritis - Past Surgical History Past Surgical History: Yes General: Cholecystectomy - Present Medications Home Medications: Ambulatory Orders Medication Instructions Recorded Confirmed Dexamethasone [Decadron] 4 mg PO DAILY #5 tablet 03/08/18 Hydrocodone/Acetaminophen [[place] 1 each PO Q6H PRN #15 tablet 03/08/18 5-325 Tablet] Ibuprofen 600 mg PO TID PRN #25 tablet 03/08/18 Methocarbamol [Robaxin] 500 mg PO Q6H PRN #30 tablet 03/08/18 - Allergies Allergies/Adverse Reactions: Allergies Allergy/AdvReac Type Severity Reaction Status Date / Time No Known Drug Allergies Allergy Verified 03/08/18 07:42 - Social History Does the pt smoke?: Yes Smoking Status: Current every day smoker Does the pt drink ETOH?: Yes Does the pt have substance abuse?: No - Immunizations Immunizations are current?: Yes Immunizations: TDAP >10years/unknown - POLST Patient has POLST: No PD ED PE NORMAL - Vitals Vital signs reviewed: Yes - General General: Alert and oriented X 3, No acute distress (sitting and moving stiffly for low back. ), Well developed/nourished - HEENT HEENT: Pharynx benign - Neck Neck: Supple, no meningeal sign, No adenopathy - Cardiac Cardiac: RRR, No murmur - Respiratory Respiratory: Clear bilaterally - Abdomen Abdomen: Soft, Non tender - Back Back: No CVA TTP, No spinal TTP, Other (tender lower lumbar muscles right more than left. No rash nor sores. ) - Derm Derm: Normal color, Warm and dry - Extremities Extremities: No tenderness to palpate, Normal ROM s pain, No edema, No calf tenderness / cord - Neuro Neuro: Alert and oriented X 3, No motor deficit, No sensory deficit, Other (2+ DTRs at knees. ) Results - Vitals Vitals: Vital Signs - 24 hr 03/08/18 07:40 Temperature 36.6 C Heart Rate 72 Respiratory 16 Rate Blood Pressure 142/77 H O2 Saturation 100 Oxygen O2 Source Room air PD MEDICAL DECISION MAKING - ED course Complexity details: reviewed old records, considered differential, d/w patient Departure - Departure Disposition: Home, Self Care Clinical Impression: Low back strain Qualifiers: Encounter type: initial encounter Qualified Code(s): S39.012A - Strain of muscle, fascia and tendon of lower back, initial encounter Condition: Stable Record reviewed to determine appropriate education?: Yes Instructions: ED Sprain Strain Lumbar Follow-Up: JAMILAH AKERS PA-C [Primary Care Provider] - Prescriptions: Dexamethasone [Decadron] 4 mg PO DAILY #5 tablet Hydrocodone/Acetaminophen [[place] 5-325 Tablet] 1 each PO Q6H PRN #15 tablet PRN Reason: Pain Ibuprofen 600 mg PO TID PRN #25 tablet PRN Reason: Pain Methocarbamol [Robaxin] 500 mg PO Q6H PRN #30 tablet PRN Reason: Spasms Comments: Rest off work a couple of days but do gentle stretching and range of motion of the back to keep it from being stiff. Heat to the low back as well. Since the ibuprofen alone has not been sufficient to get your better, I would add to it a stronger or different anti-inflammatory as well as stronger medicine for pain and spasms. Use Decadron daily for 5 more days. Robaxin muscle relaxant for stiffness and spasms and add hydrocodone if needed for pain. Follow-up with your primary care next week if not well improved. Forms: Activity restrictions Discharge Date/Time: 03/08/18 08:38
[2018-03-08] MEDS ORDERED: HYDROcod/ACETAM 5/325 MG TABLET PO STA (08:09)
[2018-03-08] MEDS ORDERED: METHOCARBAMOL 500 MG TABLET PO STA (08:09)
[2018-03-08] MEDS ORDERED: DEXAMETHASONE 10 MG/ML VIAL PO STA (08:09)
[2018-03-08] MEDS ORDERED: CHERRY SYRUP 10 ML UDC PO ONE (08:16)
== END 2018-03-08 08:38 | disposition home or self-care (01) ==
LOC: ED 07:35
DX: S39.012A Strain of muscle, fascia and tendon of lower back, initial encounter (principal); X50.0XXA Overexertion from strenuous movement or load, initial encounter; X50.9XXA Other and unspecified overexertion or strenuous movements or postures, initial encounter; Y93.89 Activity, other specified; Y92.009 Unspecified place in unspecified non-institutional (private) residence as the place of occurrence of the external cause; F17.200 Nicotine dependence, unspecified, uncomplicated
CPT/HCPCS: 99283; A9270

== ENCOUNTER 2018-03-18 13:43 | Emergency (ER) | payer OTHER ==
[2018-03-18 14:22] LABS: BASOPHILS # (AUTO) 0.1 10^3/uL (0.0-0.1); BASOPHILS % (AUTO) 0.8 %; EOSINOPHILS # (AUTO) 0.3 10^3/uL (0.0-0.7); EOSINOPHILS % (AUTO) 2.5 %; HGB - HEMOGLOBIN 16.6 g/dL (14.0-18.0); LYMPHOCYTES % (AUTO) 17.6 %; MEAN CORPUSCULAR HEMOGLOBIN 31.9 pg (27.0-31.0); MEAN CORPUSCULAR HGB CONC 34.6 g/dL (32.0-36.0); MEAN CORPUSCULAR VOLUME 92.1 fL (80.0-94.0); MEAN PLATELET VOLUME 8.1 fL (7.4-11.4); MONOCYTES # (AUTO) 0.9 10^3/uL (0.0-1.0); MONOCYTES % (AUTO) 7.6 %; NEUTROPHILS # (AUTO) 8.1 10^3/uL (1.5-6.6); NEUTROPHILS % (AUTO) 71.5 %; PLT - PLATELET COUNT 196 10^3/uL (130-450); RED BLOOD COUNT 5.22 10^6/uL (4.70-6.10); RED CELL DISTRIBUTION WIDTH 14.5 % (12.0-15.0); WHITE BLOOD COUNT 11.3 x10^3/uL (4.8-10.8)
[2018-03-18 14:35] LABS: ALBUMIN 3.4 g/dL (3.2-5.5); BILIRUBIN,TOTAL 0.5 mg/dL (0.2-1.0); CREATININE 0.8 mg/dL (0.6-1.2); TOTAL PROTEIN 6.8 g/dL (6.7-8.2)
--- NOTE | 2018-03-18 16:19 | ED Physician Documentation ---
PD HPI NVD - Stated complaint Stated Complaint: UPPER ABD PX/WEAKNESS - Chief complaint Chief Complaint: Abd Pain - History obtained from History obtained from: Patient - History of Present Illness Timing - onset: How many days ago (3) Timing - duration: Days (3) Timing - details: Abrupt onset, Still present Associated symptoms: Abdominal pain (intermittent cramping and feels bloated. No BM for couple days. No diarrhea. Has had nausea and episodic vomiting the past 3 days.), Dizzy, Loss of appetite. No: Fever, Hematemesis, Near syncope / syncope Contributing factors: No: Sick contact, Bad food Similar symptoms before: Diagnosis (had bowel obstruction about a year ago with similar symptoms.) Recently seen: Clinic (PCP yesterday, who thought the patient may be constipated from recent pain meds for back, and having stomach upset from that.) Review of Systems Constitutional: reports: Myalgias. denies: Fever, Chills Nose: denies: Rhinorrhea / runny nose, Congestion Throat: denies: Sore throat Respiratory: denies: Cough GI: reports: Abdominal Pain, Abdominal Swelling, Nausea, Vomiting, Constipation. denies: Diarrhea, Hematemesis, Bloody / black stool : denies: Dysuria, Frequency Neurologic: reports: Generalized weakness. denies: Focal weakness, Numbness, Near syncope PD PAST MEDICAL HISTORY - Past Medical History Cardiovascular: None Respiratory: None Neuro: None GI: Cholelithiasis : Other HEENT: None Psych: None Musculoskeletal: Osteoarthritis - Past Surgical History Past Surgical History: Yes General: Cholecystectomy - Present Medications Home Medications: Ambulatory Orders Medication Instructions Recorded Confirmed Dexamethasone [Decadron] 4 mg PO DAILY #5 tablet 03/08/18 Hydrocodone/Acetaminophen [[place] 1 each PO Q6H PRN #15 tablet 03/08/18 5-325 Tablet] Ibuprofen 600 mg PO TID PRN #25 tablet 03/08/18 Methocarbamol [Robaxin] 500 mg PO Q6H PRN #30 tablet 03/08/18 Naproxen 375 mg PO BID #20 tablet 03/18/18 Ondansetron Odt [Zofran] 4 mg TL Q6H PRN #10 tablet 03/18/18 - Allergies Allergies/Adverse Reactions: Allergies Allergy/AdvReac Type Severity Reaction Status Date / Time No Known Drug Allergies Allergy Verified 03/08/18 07:42 - Social History Does the pt smoke?: Yes Smoking Status: Current every day smoker Does the pt drink ETOH?: Yes Does the pt have substance abuse?: No - Immunizations Immunizations are current?: Yes Immunizations: TDAP >10years/unknown - POLST Patient has POLST: No PD ED PE NORMAL - Vitals Vital signs reviewed: Yes - General General: Alert and oriented X 3, No acute distress, Well developed/nourished - HEENT HEENT: Ears normal, Pharynx benign. No: Moist mucous membranes - Neck Neck: Supple, no meningeal sign, No adenopathy - Cardiac Cardiac: RRR, No murmur - Respiratory Respiratory: Clear bilaterally - Abdomen Abdomen: Soft, No organomegaly, Other (generally tender, but more in upper abd, and has some distension but not tense and no percussion tenderness. ). No: Normal bowel sounds (diminished) Results - Vitals Vitals: Oxygen O2 Source Room air - Labs Labs: Laboratory Tests 03/18/18 03/18/18 03/18/18 14:15 14:15 17:50 WBC 11.3 H RBC 5.22 Hgb 16.6 Hct 48.1 MCV 92.1 MCH 31.9 H MCHC 34.6 RDW 14.5 Plt Count 196 MPV 8.1 Neut # (Auto) 8.1 H Lymph # (Auto) 2.0 Yates # (Auto) 0.9 Eos # (Auto) 0.3 Baso # (Auto) 0.1 Absolute Nucleated RBC 0.01 Nucleated RBC % 0.1 Sodium 138 Potassium 3.8 Chloride 103 Carbon Dioxide 30 Anion Gap 5.0 L BUN 14 Creatinine 0.8 Estimated GFR (MDRD) 99 Glucose 115 H Lactic Acid 0.9 Calcium 9.0 Total Bilirubin 0.5 AST 20 ALT 22 Alkaline Phosphatase 93 Total Protein 6.8 Albumin 3.4 Globulin 3.4 Albumin/Globulin Ratio 1.0 Lipase 46 Urine Color Urine Clarity Urine pH Ur Specific [place] Urine Protein Urine Glucose (UA) Urine Ketones Urine Occult Blood Urine Nitrite Urine Bilirubin Urine Urobilinogen Ur Leukocyte Esterase Ur Microscopic Review Urine Culture Comments 03/18/18 18:00 WBC RBC Hgb Hct MCV MCH MCHC RDW Plt Count MPV Neut # (Auto) Lymph # (Auto) Yates # (Auto) Eos # (Auto) Baso # (Auto) Absolute Nucleated RBC Nucleated RBC % Sodium Potassium Chloride Carbon Dioxide Anion Gap BUN Creatinine Estimated GFR (MDRD) Glucose Lactic Acid Calcium Total Bilirubin AST ALT Alkaline Phosphatase Total Protein Albumin Globulin Albumin/Globulin Ratio Lipase Urine Color YELLOW Urine Clarity CLEAR Urine pH 6.0 Ur Specific [place] 1.010 Urine Protein NEGATIVE Urine Glucose (UA) NEGATIVE Urine Ketones NEGATIVE Urine Occult Blood NEGATIVE Urine Nitrite NEGATIVE Urine Bilirubin NEGATIVE Urine Urobilinogen 0.2 (NORMAL) Ur Leukocyte Esterase NEGATIVE Ur Microscopic Review NOT INDICATED Urine Culture Comments NOT INDICATED - Rads (name of study) abd/pelvic CT Radiology: Prelim report reviewed (no acute process, no obstruction.), EMP read contemporaneously, See rad report PD MEDICAL DECISION MAKING - ED course Complexity details: re-evaluated patient (improved with fluids and meds. Results of CT do not show any obstruction nor other acute process. ), considered differential, d/w patient Departure - Departure Disposition: 01 Home, Self Care Clinical Impression: Abdominal distension Vomiting Qualifiers: Vomiting type: unspecified Vomiting Intractability: non-intractable Nausea presence: with nausea Qualified Code(s): R11.2 - Nausea with vomiting, unspecified Condition: Stable Record reviewed to determine appropriate education?: Yes Instructions: ED Nausea Vomiting Follow-Up: JAMILAH AKERS PA-C [Primary Care Provider] - Prescriptions: Naproxen 375 mg PO BID #20 tablet Ondansetron Odt [Zofran] 4 mg TL Q6H PRN #10 tablet PRN Reason: Nausea / Vomiting Comments: Drink lots of fluids. Clear liquids or soft diet tonight and into tomorrow. Progress diet as able. There is no signs of obstruction or blockage on your CT scan. Presume those either viral type illness or could be just some sludging of stool. Use some anti-inflammatories twice daily for the low back. Ondansetron if needed for nausea. Recheck if not improved over the next couple of days. Off work for couple days. Forms: Activity restrictions Discharge Date/Time: 03/18/18 20:48
[2018-03-18] MEDS ORDERED: ONDANSETRON 4 MG/2 ML VIAL IVP STA ×2 (16:38→20:26)
[2018-03-18] MEDS ORDERED: KETOROLAC 60 MG/2 ML VIAL IVP STA (16:38)
[2018-03-18] MEDS ORDERED: SODIUM CHLORIDE 0.9% 1,000 ML IV ONE (16:38)
[2018-03-18] MEDS ORDERED: IOVERSOL 320 100 ML VIAL IVP ONE ×2 (17:01→17:41)
[2018-03-18 18:13] LABS: BILIRUBIN,URINE NEGATIVE (NEGATIVE); GLUCOSE, URINE (UA) NEGATIVE (NEGATIVE); KETONES,URINE (UA) NEGATIVE (NEGATIVE); LEUKOCYTE ESTERASE, URINE NEGATIVE (NEGATIVE); NITRITE,URINE NEGATIVE (NEGATIVE); OCCULT BLOOD,URINE NEGATIVE (NEGATIVE); PROTEIN,URINE NEGATIVE (NEGATIVE); UROBILINOGEN,URINE 0.2 (NORMAL) E.U./dL (NORMAL)
[2018-03-18 18:19] LABS: CLARITY,URINE CLEAR (CLEAR)
--- NOTE | 2018-03-18 18:41 | CT Report ---
Reason: abd bloating and vomiting Procedure Date: 03/18/2018 Accession Number: [id number] / [id number] Procedure: CT - Abdomen/Pelvis W/ CPT Code: FULL RESULT: EXAM: CT ABDOMEN AND PELVIS EXAM DATE: 03/18/2018 05:15 PM. CLINICAL HISTORY: Abdominal pain, bloating and vomiting for 5 days. COMPARISONS: ABDOMEN/PELVIS W/ 02/15/2017 1:14 PM ABDOMEN/PELVIS W/ 06/21/2014 11:27 PM. TECHNIQUE: Routine helical CT imaging was performed through the abdomen and pelvis. IV contrast: 90 ML OPTIRAY 320. Enteric contrast: No. Reconstructions: Coronal and sagittal. In accordance with CT protocol optimization, one or more of the following dose reduction techniques were utilized for this exam: automated exposure control, adjustment of mA and/or KV based on patient size, or use of iterative reconstructive technique. FINDINGS: Lung Bases: Unremarkable. Liver: Several tiny stable hepatic cysts since 2014. Gallbladder/Bile Ducts: Cholecystectomy. No biliary duct dilatation. Spleen: Normal. Pancreas: Normal. Adrenal Glands: Normal. Kidneys: Stable 1 cm exophytic high density lesion superior pole right kidney since 2014 consistent with benign etiology. Several stable 3 cm and smaller hepatic cysts. No hydronephrosis. Peritoneal Cavity/Bowel: Normal. No free fluid, free air or adenopathy. No masses or acute inflammatory process. No recurrent small bowel dilatation. The appendix is well visualized and normal. Pelvic Organs: Prostate remains markedly enlarged, 8 cm. No stones in the small caliber urinary bladder. Small knuckle of distal small bowel extending through the wide neck of a 5 x 3 cm right inguinal hernia. This has recurred since the 2015 exam. Vasculature: No aneurysms or other significant abnormality. Bones: No significant abnormality. Other: Stable 4 cm uniform fat density lesion left gluteal muscle since 2014. IMPRESSION: 1. Small non-entrapped right inguinal hernia with short segment small bowel involvement. 2. 4 cm left gluteal lipoma. 3. Long-term stability of the small hepatic and renal lesions consistent with benign cystic etiology. 4. Marked prostatic enlargement without urinary bladder outlet obstruction. RADIA
[2018-03-18] MEDS ORDERED: ACETAMINOPHEN 325 MG TABLET PO STA (20:26)
[2018-03-18] MEDS ORDERED: traMADol 50 MG TABLET PO STA (20:28)
[2018-03-18] MEDS ORDERED: DOCUSATE SODIUM 100 MG CAPSULE PO STA (20:28)
[2018-03-18 20:46] VITALS: BP 116/77
== END 2018-03-18 20:48 | disposition home or self-care (01) ==
LOC: ED 13:43
DX: R14.0 Abdominal distension (gaseous) (principal); R11.2 Nausea with vomiting, unspecified; F17.200 Nicotine dependence, unspecified, uncomplicated
CPT/HCPCS: 36415; 74177; 80053; 81003; 83605; 83690; 85025; 99283; A9270; Q9967; 81001; 87086

== ENCOUNTER 2018-12-03 06:22 | Emergency (ER) | payer OTHER ==
--- NOTE | 2018-12-03 07:26 | ED Physician Documentation ---
PD HPI HEADACHE - Stated complaint Stated Complaint: WEAKNESS/DAVIS/DIZZY - Chief complaint Chief Complaint: Neuro - History obtained from History obtained from: Patient - History of Present Illness Timing - onset: How many weeks ago (1) Timing - duration: Weeks (1) Timing - details: Gradual onset, Still present, Waxing and waning Worst headache ever?: No: Worst headache ever? Location: Front, Right Quality: Throbbing Associated symptoms: No: Fever, Stiff neck, Nausea, Vomiting, Weakness, Numbness, Vision changes Worsened by: No: Light, Noise Contributing factors: No: Recent illness, Trauma Similar symptoms before: Has not had sx before Recently seen: Not recently seen Review of Systems Constitutional: denies: Fever, Chills, Myalgias Eyes: denies: Decreased vision, Photophobia Ears: denies: Loss of hearing, Ear pain Nose: reports: Rhinorrhea / runny nose, Congestion. denies: Sinus pressure / pain Throat: denies: Sore throat Cardiac: denies: Chest pain / pressure Respiratory: denies: Dyspnea GI: denies: Abdominal Pain, Nausea, Vomiting, Diarrhea Skin: denies: Rash, Lesions Neurologic: denies: Focal weakness, Numbness, Difficulty speaking, Near syncope, Altered mental status PD PAST MEDICAL HISTORY - Past Medical History Past Medical History: Yes Cardiovascular: None Respiratory: None Neuro: None GI: Cholelithiasis : Other HEENT: None Psych: None Musculoskeletal: Osteoarthritis - Past Surgical History Past Surgical History: Yes General: Cholecystectomy - Present Medications Home Medications: Ambulatory Orders Medication Instructions Recorded Confirmed Naproxen 500 mg PO BID #20 tablet 12/03/18 Tramadol HCl 50 mg PO Q6H PRN #15 tablet 12/03/18 - Allergies Allergies/Adverse Reactions: Allergies Allergy/AdvReac Type Severity Reaction Status Date / Time acetaminophen [From Percocet] Allergy Nausea Verified 12/03/18 06:30 oxycodone [From Percocet] Allergy Nausea Verified 12/03/18 06:30 - Social History Does the pt smoke?: Yes Smoking Status: Current every day smoker Does the pt drink ETOH?: No Does the pt have substance abuse?: No - Immunizations Immunizations are current?: Yes Immunizations: TDAP >10years/unknown - POLST Patient has POLST: No PD ED PE NORMAL - Vitals Vital signs reviewed: Yes - General General: Alert and oriented X 3, No acute distress, Well developed/nourished - HEENT HEENT: Atraumatic, PERRL, EOMI, Pharynx benign - Neck Neck: Supple, no meningeal sign, No adenopathy - Cardiac Cardiac: RRR, No murmur - Respiratory Respiratory: Clear bilaterally - Abdomen Abdomen: Soft, Non tender - Derm Derm: Normal color, Warm and dry - Extremities Extremities: No deformity, No tenderness to palpate, Normal ROM s pain, No edema, No calf tenderness / cord - Neuro Neuro: Alert and oriented X 3, post framer 2-12 intact, No motor deficit, No sensory deficit, Normal speech Eye Opening: Spontaneous Motor: Obeys Commands Verbal: Oriented GCS Score: 15 Results - Vitals Vitals: Vital Signs - 24 hr 12/03/18 12/03/18 12/03/18 06:26 06:31 08:53 Temperature 36.4 C L Heart Rate 62 74 Respiratory 14 14 16 Rate Blood Pressure 146/80 H 124/71 O2 Saturation 100 Oxygen O2 Source Room air - Labs Labs: Laboratory Tests 12/03/18 12/03/18 12/03/18 07:53 07:53 07:53 WBC 8.3 RBC 5.08 Hgb 15.9 Hct 46.6 MCV 91.7 MCH 31.3 H MCHC 34.1 RDW 13.3 Plt Count 227 MPV 9.9 Neut # (Auto) 5.4 Lymph # (Auto) 1.9 [place] # (Auto) 0.6 Eos # (Auto) 0.3 Baso # (Auto) 0.1 Absolute Nucleated RBC 0.00 Nucleated RBC % 0.0 ESR 14 Sodium 138 Potassium 3.9 Chloride 103 Carbon Dioxide 26 Anion Gap 9.0 BUN 12 Creatinine 0.8 Estimated GFR (MDRD) 98 Glucose 104 H Calcium 9.1 Magnesium 2.1 Total Bilirubin 0.7 AST 19 ALT 17 Alkaline Phosphatase 91 Total Protein 7.1 Albumin 3.4 Globulin 3.7 Albumin/Globulin Ratio 0.9 L Lipase 23 - Rads (name of study) head CT Radiology: Prelim report reviewed, Discussed with rads (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 There is no signs of hydrocephalus. Suggestion is for consultation and presumably sequential imaging to ensure it does not enlarge over time and because it outflow obstruction of the ventricle. The radiologist impression is that should not be causing his pain at this time. No other acute processes seen.), EMP read contemporaneously, See rad report PD MEDICAL DECISION MAKING - ED course Complexity details: reviewed results (Normal labs and CT scan does not account for the headache. He has an incidental benign cyst found which is not causing outflow obstruction at this time. It is near the base of the fourth ventricle. I discussed this with the patient and he should have followed up with his primary and presumably a specialist in an non-urgent timeframe. This is the recommendation from the radiologist.), considered differential (No trauma, no infectious symptoms. No focal findings. He has had headache for a week however and can get a scan to ensure no obvious processes. Otherwise consider functional headache such as tension or sinus headaches.), d/w patient Departure - Departure Disposition: 01 Home, Self Care Clinical Impression: Ependymoma Headache Qualifiers: Headache type: unspecified Headache chronicity pattern: acute headache Intractability: not intractable Qualified Code(s): R51 - Headache Condition: Stable Record reviewed to determine appropriate education?: Yes Instructions: ED Cephalgia Unspecified Follow-Up: JAMILAH AKERS PA-C [Primary Care Provider] - Prescriptions: Naproxen 500 mg PO BID #20 tablet Tramadol HCl 50 mg PO Q6H PRN #15 tablet PRN Reason: Pain Comments: Your basic blood tests appear normal. Your CT scan does not show any findings that would account for the headache. There was a finding on your CT of a small's tumor that should not be causing you problems at this time. Recommendation was to follow-up with the specialist neurosurgeon to discuss following of this. Commonly there would be repeated imaging and an interval of time to make sure there is not growing. Otherwise appears as a benign tumor and as long as it does not get bigger to cause problems. There is no signs of a causing problems at this time. You would want to get the referral through your primary care. I assume your headache is more functional headache such as tension headache or sinus. Use some anti-inflammatories such as a ibuprofen or naproxen twice daily for the next week and add Tylenol every 4 hours if needed for headache. Increase to tramadol if needed for worse headache. Recheck if not fully improved over the next several days to week. Discharge Date/Time: 12/03/18 08:53
[2018-12-03] MEDS ORDERED: IBUPROFEN 600 MG TABLET PO STA (07:43)
[2018-12-03] MEDS ORDERED: ACETAMINOPHEN 325 MG TABLET PO STA (07:43)
[2018-12-03 08:08] LABS: BASOPHILS # (AUTO) 0.1 10^3/uL (0.0-0.1); BASOPHILS % (AUTO) 1.1 %; EOSINOPHILS # (AUTO) 0.3 10^3/uL (0.0-0.7); HGB - HEMOGLOBIN 15.9 g/dL (14.0-18.0); LYMPHOCYTES # (AUTO) 1.9 10^3/uL (1.5-3.5); LYMPHOCYTES % (AUTO) 23.4 %; MEAN CORPUSCULAR HEMOGLOBIN 31.3 pg (27.0-31.0); MEAN CORPUSCULAR HGB CONC 34.1 g/dL (32.0-36.0); MEAN CORPUSCULAR VOLUME 91.7 fL (80.0-94.0); MEAN PLATELET VOLUME 9.9 fL (7.4-11.4); MONOCYTES # (AUTO) 0.6 10^3/uL (0.0-1.0); MONOCYTES % (AUTO) 7.5 %; NEUTROPHILS # (AUTO) 5.4 10^3/uL (1.5-6.6); NEUTROPHILS % (AUTO) 64.4 %; PLT - PLATELET COUNT 227 10^3/uL (130-450); RED BLOOD COUNT 5.08 10^6/uL (4.70-6.10); RED CELL DISTRIBUTION WIDTH 13.3 % (12.0-15.0); WHITE BLOOD COUNT 8.3 x10^3/uL (4.8-10.8)
--- NOTE | 2018-12-03 08:16 | CT Report ---
Reason: headache for a week Procedure Date: 12/03/2018 Accession Number: [id number] / [id number] Procedure: CT - HEAD WO CPT Code: FULL RESULT: EXAM: CT HEAD EXAM DATE: 12/03/2018 08:03 AM. CLINICAL HISTORY: 53-year-old man with headache for 1 week. COMPARISON: None. TECHNIQUE: Multiaxial CT images were obtained from the foramen magnum to the vertex. Reformats: Sagittal and coronal. IV contrast: None. In accordance with CT protocol optimization, one or more of the following dose reduction techniques were utilized for this exam: automated exposure control, adjustment of mA and/or KV based on patient size, or use of iterative reconstructive technique. FINDINGS: Parenchyma: No evidence of acute infarct or hemorrhage. The parenchyma demonstrates normal attenuation characteristics. Ventricles and Extra-axial Spaces: Ventricles are symmetric and normal in size. Partially calcified mass lesion is present in the inferior aspect of the fourth ventricle. Margins are difficult to delineate on this noncontrast exam, but lesion measures approximately 1.9 x 1.3 cm in maximum axial dimensions. No extra-axial hemorrhage or fluid collection. Orbits: Unremarkable. Sinuses: Paranasal sinuses and mastoid air cells are clear. Extracranial Soft Tissues and Bones: Soft tissues are unremarkable. No fractures. IMPRESSION: 1. Partially calcified mass is present along the floor of the fourth ventricle measuring approximately 1.9 x 1.3 cm. 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 Neurosurgical consultation is recommended in a nonurgent manner. 2. No evidence of hydrocephalus. [facility] The call report notification system was initiated by Dr. Ari Li at 08:11 AM on 12/03/2018. The above call report findings were discussed with [place] by Dr. Ari Li at 08:14 AM on 12/03/2018.
[2018-12-03 08:17] LABS: ALBUMIN 3.4 g/dL (3.2-5.5); ALBUMIN/GLOBULIN RATIO 0.9 (1.0-2.2); BILIRUBIN,TOTAL 0.7 mg/dL (0.2-1.0); CALCIUM 9.1 mg/dL (8.5-10.3); CREATININE 0.8 mg/dL (0.6-1.2); MAGNESIUM 2.1 mg/dL (1.7-2.8); TOTAL PROTEIN 7.1 g/dL (6.7-8.2)
[2018-12-03] MEDS ORDERED: CHERRY SYRUP 10 ML UDC PO ONE (08:36)
[2018-12-03] MEDS ORDERED: DEXAMETHASONE 10 MG/ML VIAL PO STA (08:36)
[2018-12-03 08:53] VITALS: BP 124/71
== END 2018-12-03 08:53 | disposition home or self-care (01) ==
LOC: ED 06:22
DX: R51 Headache (principal); D33.1 Benign neoplasm of brain, infratentorial; F17.200 Nicotine dependence, unspecified, uncomplicated
CPT/HCPCS: 36415; 70450; 80053; 83690; 83735; 85025; 85651; 93005; 99284; A9270

== ENCOUNTER 2018-12-09 10:27 | Emergency (ER) | payer OTHER ==
--- NOTE | 2018-12-09 10:47 | ED Physician Documentation ---
History of Present Illness - Stated complaint Stated Complaint: DAVIS/BLOATING/HICCUPS - Chief complaint Chief Complaint: Neuro - Additonal information Additional information: This is a 63-year-old male presents with several concerns. 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 They have referred him to a neurologist or neurosurgeon and he is waiting to follow-up with. He states that his headache has improved, and his intermittent blurry vision he was having is also improving, however since Saturday he has had hiccups. He also has some bloating of his abdomen. He is been eating normally, and having bowel movements, but his belly does feel bloated to him and he has had several episodes of vomiting last night. He denies any history of abdominal surgery. No focal weakness, numbness. He does feel mildly generally weak. No chest pain, no shortness of breath. Review of Systems Constitutional: denies: Fever Nose: denies: Rhinorrhea / runny nose Cardiac: denies: Chest pain / pressure Respiratory: denies: Dyspnea GI: reports: Other (Bloating). denies: Diarrhea Neurologic: reports: Generalized weakness PD PAST MEDICAL HISTORY - Past Medical History Cardiovascular: None Respiratory: None Neuro: None GI: Cholelithiasis : Other HEENT: None Psych: None Musculoskeletal: Osteoarthritis - Past Surgical History Past Surgical History: Yes General: Cholecystectomy - Present Medications Home Medications: Ambulatory Orders Medication Instructions Recorded Confirmed RX: Naproxen 500 mg PO BID #20 tablet 12/03/18 RX: Tramadol HCl 50 mg PO Q6H PRN #15 tablet 12/03/18 RX: Simethicone [Gas Relief] 125 mg PO TID PRN #21 capsule 12/09/18 - Allergies Allergies/Adverse Reactions: Allergies Allergy/AdvReac Type Severity Reaction Status Date / Time acetaminophen [From Percocet] Allergy Nausea Verified 12/09/18 10:33 oxycodone [From Percocet] Allergy Nausea Verified 12/09/18 10:33 - Social History Does the pt smoke?: Yes Smoking Status: Current every day smoker Does the pt drink ETOH?: No Does the pt have substance abuse?: No - Immunizations Immunizations are current?: Yes Immunizations: TDAP >10years/unknown - POLST Patient has POLST: No PD ED PE NORMAL - Vitals Vital signs reviewed: Yes - General General: Alert and oriented X 3, No acute distress, Other (Hiccups present.) - HEENT HEENT: PERRL - Neck Neck: Supple, no meningeal sign - Cardiac Cardiac: RRR, No murmur - Respiratory Respiratory: Clear bilaterally - Abdomen Abdomen: Other (Soft, no significant distention, no masses palpated. No sign ificant tenderness, no guarding.) - Derm Derm: Warm and dry - Extremities Extremities: No deformity - Neuro Neuro: Alert and oriented X 3, order selector 2-12 intact, No motor deficit, No sensory deficit, Normal speech - Psych Psych: Normal mood, Normal affect Results - Vitals Vitals: Vital Signs - 24 hr 12/09/18 12/09/18 12/09/18 10:30 12:18 13:20 Temperature 36.7 C Heart Rate 89 62 79 Respiratory 19 15 19 Rate Blood Pressure 137/76 H 115/73 119/89 H O2 Saturation 100 98 99 Oxygen O2 Source Room air - Labs Labs: Laboratory Tests 12/09/18 12/09/18 12/09/18 11:04 11:04 11:11 WBC 8.3 RBC 4.91 Hgb 15.7 Hct 45.1 MCV 91.9 MCH 32.0 H MCHC 34.8 RDW 13.4 Plt Count 219 MPV 9.7 Neut # (Auto) 5.6 Lymph # (Auto) 1.7 [place] # (Auto) 0.7 Eos # (Auto) 0.2 Baso # (Auto) 0.1 Absolute Nucleated RBC 0.00 Nucleated RBC % 0.0 Sodium 139 Potassium 3.6 Chloride 101 Carbon Dioxide 31 Anion Gap 7.0 BUN 17 Creatinine 0.9 Estimated GFR (MDRD) 86 L Glucose 106 H Calcium 9.0 Total Bilirubin 0.9 AST 21 ALT 22 Alkaline Phosphatase 100 Total Protein 6.8 Albumin 3.4 Globulin 3.4 Albumin/Globulin Ratio 1.0 Lipase 22 Urine Color DARK YELLOW Urine Clarity CLEAR Urine pH 6.5 Ur Specific [place] 1.020 Urine Protein NEGATIVE Urine Glucose (UA) NEGATIVE Urine Ketones 15 H Urine Occult Blood NEGATIVE Urine Nitrite NEGATIVE Urine Bilirubin NEGATIVE Urine Urobilinogen 0.2 (NORMAL) Ur Leukocyte Esterase SMALL H Urine RBC 0-5 Urine WBC 4-5 Ur Squamous Epith Cells NONE SEEN Urine Bacteria Few Ur Microscopic Review INDICATED Urine Culture Comments INDICATED PD MEDICAL DECISION MAKING - ED course Complexity details: considered differential (Electrolyte abnormality, gastroenteritis, abdominal gas, diaphragmatic irritation, increased intracranial pressure) ED course: On exam patient is well-appearing, his neurologic exam is unremarkable without deficits. He states that his headache has been improving and his vision changes also been improving since his previous visit to the ED, and he denies any new neurologic symptoms today. Given he had a CT scan Within the last several days, and his symptoms have been improving since that time, I do not see indication for repeat imaging today. His primary concern today is he has some abdominal bloating and hiccups. He has a benign abdominal examination. His CBC, CMP, and lipase are unremarkable. His UA does show several white blood cells, overall equivocal for infection. He denies dysuria and I doubt UTI, so we will let this go to culture. Patient was given Reglan for nausea and a GI cocktail, which he states helped somewhat with his bloating, but he continues to have hiccups. Given that he is well-appearing with a benign abdominal examination, I think he is stable for outpatient follow-up. I do not think it would be prudent to attempt to treat his hiccups pharmacologically at this time. I do not see signs of a bowel obstruction or other acute abdominal pathology today, he is able to eat and drink fluids. I discussed return precautions with him including worsening headache, numbness, weakness, confusion, increasing abdominal discomfort, persistent vomiting, or any other concerning symptoms. Patient agreed and was discharged home. Departure - Departure Disposition: 01 Home, Self Care Clinical Impression: Nausea, Weakness Condition: Good Follow-Up: JAMILAH AKERS PA-C [Primary Care Provider] - Within 1 week (For follow up on symptoms and confirmation of referral for brain tumor.) Prescriptions: RX: Simethicone [Gas Relief] 125 mg PO TID PRN #21 capsule PRN Reason: gas Comments: We did not see an obvious cause of your bloating or hiccups today on our workup. You may try simethicone for bloating. Please follow-up with your primary care provider. If you develop persistent vomiting, abdominal pain, severe headache, confusion/numbness/weakness, or any other concerning symptoms return to the e mergency department Forms: Activity restrictions Discharge Date/Time: 12/09/18 13:20
[2018-12-09] MEDS ORDERED: MAG HYDROX/AL HYDROX/SIMETH 30 ML UDC PO STA (10:55)
[2018-12-09] MEDS ORDERED: METOCLOPRAMIDE 10 MG TABLET PO STA (10:55)
[2018-12-09 11:10] LABS: BASOPHILS # (AUTO) 0.1 10^3/uL (0.0-0.1); BASOPHILS % (AUTO) 0.8 %; EOSINOPHILS # (AUTO) 0.2 10^3/uL (0.0-0.7); EOSINOPHILS % (AUTO) 2.1 %; HGB - HEMOGLOBIN 15.7 g/dL (14.0-18.0); LYMPHOCYTES # (AUTO) 1.7 10^3/uL (1.5-3.5); LYMPHOCYTES % (AUTO) 20.5 %; MEAN CORPUSCULAR HGB CONC 34.8 g/dL (32.0-36.0); MEAN CORPUSCULAR VOLUME 91.9 fL (80.0-94.0); MEAN PLATELET VOLUME 9.7 fL (7.4-11.4); MONOCYTES # (AUTO) 0.7 10^3/uL (0.0-1.0); MONOCYTES % (AUTO) 8.1 %; NEUTROPHILS # (AUTO) 5.6 10^3/uL (1.5-6.6); NEUTROPHILS % (AUTO) 67.9 %; PLT - PLATELET COUNT 219 10^3/uL (130-450); RED BLOOD COUNT 4.91 10^6/uL (4.70-6.10); RED CELL DISTRIBUTION WIDTH 13.4 % (12.0-15.0); WHITE BLOOD COUNT 8.3 x10^3/uL (4.8-10.8)
[2018-12-09 11:22] LABS: ALBUMIN 3.4 g/dL (3.2-5.5); BILIRUBIN,TOTAL 0.9 mg/dL (0.2-1.0); CREATININE 0.9 mg/dL (0.6-1.2); TOTAL PROTEIN 6.8 g/dL (6.7-8.2)
[2018-12-09 11:24] LABS: GLUCOSE, URINE (UA) NEGATIVE (NEGATIVE); KETONES,URINE (UA) 15 mg/dL (NEGATIVE); LEUKOCYTE ESTERASE, URINE SMALL (NEGATIVE); NITRITE,URINE NEGATIVE (NEGATIVE); OCCULT BLOOD,URINE NEGATIVE (NEGATIVE); PH,URINE 6.5 PH (5.0-7.5); PROTEIN,URINE NEGATIVE (NEGATIVE); UROBILINOGEN,URINE 0.2 (NORMAL) E.U./dL (NORMAL)
[2018-12-09 11:32] LABS: BILIRUBIN,URINE NEGATIVE (NEGATIVE); CLARITY,URINE CLEAR (CLEAR); ICTOTEST,URINE NEGATIVE
[2018-12-09 11:38] LABS: RBC,URINE 0-5 /HPF (0-5); SQUAMOUS EPITHELIAL CELL,UR NONE SEEN (<= Few)
[2018-12-09 11:39] LABS: BACTERIA,URINE Few /HPF (None Seen)
[2018-12-09 13:24] VITALS: BP 119/89
== END 2018-12-09 13:20 | disposition home or self-care (01) ==
LOC: ED 10:27
DX: R11.2 Nausea with vomiting, unspecified (principal); R06.6 Hiccough; R53.1 Weakness; D43.2 Neoplasm of uncertain behavior of brain, unspecified; F17.200 Nicotine dependence, unspecified, uncomplicated
CPT/HCPCS: 36415; 80053; 81001; 83690; 85025; 87086; 99283; A9270; 81003

== ENCOUNTER 2018-12-30 23:53 | Emergency (ER) | payer OTHER ==
[2018-12-31] MEDS ORDERED: ONDANSETRON 4 MG/2 ML VIAL IVP STA (00:58)
[2018-12-31] MEDS ORDERED: SODIUM CHLORIDE 0.9% 1,000 ML IV ONE (00:58)
--- NOTE | 2018-12-31 01:02 | ED Physician Documentation ---
PD HPI NVD - Stated complaint Stated Complaint: VOMITING BLOOD/NAUSEA/DAVIS - Chief complaint Chief Complaint: Abd Pain - History obtained from History obtained from: Patient - History of Present Illness Timing - onset: How many months ago (1) Timing - duration: Months (1) Timing - details: Gradual onset Pain level now: 0 Associated symptoms: Dizzy, Loss of appetite. No: Fever, Abdominal pain, Hematemesis, Dysuria, Hematuria Contributing factors: No: Sick contact, Bad food Recently seen: Not recently seen - Additonal information Additional information: This is a 63-year-old man who presents with his complaints that for the past month he had a headache has been having nausea and vomiting and feels very weak. Tonight he got real dizzy and decided that he should could come in to be re-seen. He was in the emergency department approximately a month ago they did a CT that showed some sort of a tumor or a cyst on the right side of his brain measured about 1.8 cm and he has been referred to a neurologist but does not have a follow-up appointment yet. He headache is constant 5-6 out of 10. He started hiccuping about 3 weeks ago and there are days that he hiccups 24 hours. He has been prescribed Zofran which she has taken and it seems to relieve the vomiting but he is down to his last pill. He took his last dose yesterday. He also thinks that he had a CT [place] but has not gotten any follow-up on the report yet. She had some chills but denies fever. He has not passed out. Denies shortness of breath or palpitations. No visual changes. He says he does not have much of an appetite and is not defecating as much as normal. Denies peripheral edema or dysuria. He is status post cholecystectomy. 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 Review of Systems Constitutional: denies: Fever Eyes: reports: Other (Patient does wear glasses). denies: Decreased vision Ears: denies: Ear pain Nose: denies: Congestion Throat: denies: Sore throat Cardiac: denies: Chest pain / pressure, Palpitations Respiratory: denies: Dyspnea, Cough GI: reports: Nausea, Vomiting. denies: Abdominal Pain, Diarrhea : denies: Dysuria, Frequency Skin: denies: Rash Musculoskeletal: denies: Neck pain, Back pain Neurologic: reports: Headache. denies: Syncope, LOC Endocrine: reports: Other (Patient is not a diabetic.) Immunocompromised: denies: Immunocompromised PD PAST MEDICAL HISTORY - Past Medical History Cardiovascular: None Respiratory: None Neuro: None GI: Cholelithiasis : Other HEENT: None Psych: None Musculoskeletal: Osteoarthritis Other Past Medical History: brain tumor - Past Surgical History Past Surgical History: Yes General: Cholecystectomy, Colonoscopy - Present Medications Home Medications: Ambulatory Orders Medication Instructions Recorded Confirmed Naproxen 500 mg PO BID #20 tablet 12/03/18 Tramadol HCl 50 mg PO Q6H PRN #15 tablet 12/03/18 Simethicone [Gas Relief] 125 mg PO TID PRN #21 capsule 12/09/18 Ondansetron Odt [Zofran] 4 mg TL Q6H PRN #10 tablet 12/31/18 - Allergies Allergies/Adverse Reactions: Allergies Allergy/AdvReac Type Severity Reaction Status Date / Time Narcotics AdvReac Nausea Uncoded 12/31/18 00:12 - Social History Does the pt smoke?: Yes Smoking Status: Current every day smoker Does the pt drink ETOH?: No Does the pt have substance abuse?: No - Immunizations Immunizations are current?: Yes Immunizations: TDAP >10years/unknown - POLST Patient has POLST: No PD ED PE NORMAL - Vitals Vital signs reviewed: Yes - General General: Alert and oriented X 3, No acute distress, Well developed/nourished, Other (Patient began hiccuping during the interview) - HEENT HEENT: Atraumatic, PERRL, EOMI, Moist mucous membranes, Other (No scleral icterus.) - Neck Neck: Supple, no meningeal sign, No adenopathy, Thyroid normal - Cardiac Cardiac: RRR, No murmur, Strong equal pulses - Respiratory Respiratory: No respiratory distress, Clear bilaterally - Abdomen Abdomen: Soft, Non tender, Non distended, No organomegaly, Other (Increased bowel tones) - Derm Derm: Normal color, Warm and dry, No rash - Extremities Extremities: No edema - Neuro Neuro: Alert and oriented X 3 - Psych Psych: Normal mood, Normal affect Results - Vitals Vitals: Vital Signs - 24 hr 12/31/18 00:05 Temperature 36.3 C L Heart Rate 62 Respiratory 16 Rate Blood Pressure 115/73 O2 Saturation 100 Oxygen O2 Source Room air - Labs Labs: Laboratory Tests 12/31/18 12/31/18 12/31/18 01:10 01:10 01:10 WBC 7.4 RBC 4.83 Hgb 14.8 Hct 45.0 MCV 93.2 MCH 30.6 MCHC 32.9 RDW 13.6 Plt Count 215 MPV 9.7 Neut # (Auto) 5.0 Lymph # (Auto) 1.6 [place] # (Auto) 0.6 Eos # (Auto) 0.2 Baso # (Auto) 0.1 Absolute Nucleated RBC 0.00 Nucleated RBC % 0.0 PT 12.8 H INR 1.1 Sodium 140 Potassium 3.6 Chloride 105 Carbon Dioxide 27 Anion Gap 8.0 BUN 10 Creatinine 0.9 Estimated GFR (MDRD) 86 L Glucose 114 H Calcium 8.9 Total Bilirubin 0.6 AST 18 ALT 20 Alkaline Phosphatase 85 Total Protein 6.8 Albumin 3.4 Globulin 3.4 Albumin/Globulin Ratio 1.0 Lipase 25 PD MEDICAL DECISION MAKING - ED course Complexity details: re-evaluated patient, d/w patient, d/w family ED course: Labs are normal. The patient continued to hiccup during his stay here but had no vomiting. He was feeling a little bit better after liter of fluids. [place] and I did not feel that it was warranted read to repeat that here he does not have a white count his abdomen is benign. Get a refill of Zofran. He is encouraged to continue using simethicone and to start taking probiotics. He requested a note for work tomorrow since he has to be up now basically to go to work. In addition I have encouraged him to [place] the re-results of the CT scan and make sure he follows through with the appointment for the neurologist. Departure - Departure Disposition: 01 Home, Self Care Clinical Impression: Intractable hiccups Condition: Good Instructions: ED Nausea Vomiting Follow-Up: ALLEN Mejia [Provider Group] Prescriptions: Ondansetron Odt [Zofran] 4 mg TL Q6H PRN #10 tablet PRN Reason: Nausea / Vomiting Comments: Try to avoid processed foods or foods that you find make you really gassy. Continue to take the simethicone [id number]. I recommend a probiotic, Paloma FloraMend, is a good product. Uses Zofran if needed for nausea or vomiting. [place] about [place] report and for follow-up for any further concerns. Return if your symptoms are worsening or other problems arise. Forms: Activity restrictions
[2018-12-31 01:27] LABS: BASOPHILS # (AUTO) 0.1 10^3/uL (0.0-0.1); BASOPHILS % (AUTO) 0.7 %; EOSINOPHILS # (AUTO) 0.2 10^3/uL (0.0-0.7); EOSINOPHILS % (AUTO) 3.2 %; HGB - HEMOGLOBIN 14.8 g/dL (14.0-18.0); LYMPHOCYTES # (AUTO) 1.6 10^3/uL (1.5-3.5); LYMPHOCYTES % (AUTO) 21.2 %; MEAN CORPUSCULAR HEMOGLOBIN 30.6 pg (27.0-31.0); MEAN CORPUSCULAR HGB CONC 32.9 g/dL (32.0-36.0); MEAN CORPUSCULAR VOLUME 93.2 fL (80.0-94.0); MEAN PLATELET VOLUME 9.7 fL (7.4-11.4); MONOCYTES # (AUTO) 0.6 10^3/uL (0.0-1.0); MONOCYTES % (AUTO) 7.7 %; NEUTROPHILS % (AUTO) 66.9 %; PLT - PLATELET COUNT 215 10^3/uL (130-450); RED BLOOD COUNT 4.83 10^6/uL (4.70-6.10); RED CELL DISTRIBUTION WIDTH 13.6 % (12.0-15.0); WHITE BLOOD COUNT 7.4 x10^3/uL (4.8-10.8)
[2018-12-31 01:33] LABS: INR 1.1 (0.8-1.2); PT - PROTHROMBIN TIME 12.8 secs (9.9-12.6)
[2018-12-31 01:35] LABS: ALBUMIN 3.4 g/dL (3.2-5.5); BILIRUBIN,TOTAL 0.6 mg/dL (0.2-1.0); CALCIUM 8.9 mg/dL (8.5-10.3); CREATININE 0.9 mg/dL (0.6-1.2); TOTAL PROTEIN 6.8 g/dL (6.7-8.2)
[2018-12-31 02:58] VITALS: BP 130/76
== END 2018-12-31 03:02 | disposition home or self-care (01) ==
LOC: ED 23:53
DX: R06.6 Hiccough (principal); R42 Dizziness and giddiness; R51 Headache; R11.2 Nausea with vomiting, unspecified; D49.6 Neoplasm of unspecified behavior of brain; F17.200 Nicotine dependence, unspecified, uncomplicated
CPT/HCPCS: 36415; 80053; 83690; 85025; 85610; 96361; 96374; 99284

== ENCOUNTER 2019-01-04 09:35 | Emergency (ER) | payer OTHER ==
--- NOTE | 2019-01-04 10:01 | ED Physician Documentation ---
PD HPI ABD PAIN - Stated complaint Stated Complaint: HICCUPS X1 MO/ABD PX/NAUSEA - Chief complaint Chief Complaint: General - History obtained from History obtained from: Patient - History of Present Illness Timing - onset: How many months ago (1-2) Timing - duration: Months Timing - details: Gradual onset, Intermittant Quality: Other (some epigastric pains worse with eating and spicy foods. Has had hiccups much of the time for the past 1-2 months. Some improved with zofran but not fully. Has tried antacids without much improvement.) Location: Epigastric Radiation: No: Chest, Lower back Improved by: No: Eating, Vomiting Worsened by: Eating Associated symptoms: Nausea, Constipation, Loss of appetite. No: Fever, Vomiting, Diarrhea, Dysuria, Hematuria, Weight loss Similar symptoms before: Diagnosis (hiccups, uncertain cause.) Recently seen: Clinic, Emergency Dept Review of Systems Constitutional: denies: Fever, Chills, Myalgias Nose: denies: Rhinorrhea / runny nose, Congestion Throat: denies: Sore throat Cardiac: denies: Chest pain / pressure, Palpitations Respiratory: denies: Cough GI: reports: Abdominal Pain, Nausea, Constipation. denies: Vomiting, Diarrhea : denies: Dysuria, Frequency Musculoskeletal: denies: Neck pain, Back pain PD PAST MEDICAL HISTORY - Past Medical History Cardiovascular: None Respiratory: None Neuro: None GI: Cholelithiasis : Other HEENT: None Psych: None Musculoskeletal: Osteoarthritis - Past Surgical History Past Surgical History: Yes General: Cholecystectomy, Colonoscopy - Present Medications Home Medications: Ambulatory Orders Medication Instructions Recorded Confirmed Naproxen 500 mg PO BID #20 tablet 12/03/18 Tramadol HCl 50 mg PO Q6H PRN #15 tablet 12/03/18 Simethicone [Gas Relief] 125 mg PO TID PRN #21 capsule 12/09/18 Ondansetron Odt [Zofran] 4 mg TL Q6H PRN #10 tablet 12/31/18 Docusate Sodium 100 mg PO DAILY #30 capsule 01/04/19 Famotidine 20 mg PO DAILY #30 tablet 01/04/19 Lidocaine Viscous 2% [Xylocaine 5 ml PO Q4H PRN #100 ml 01/04/19 Viscous 2%] Promethazine [Phenergan] 25 mg PO Q6H PRN #30 tab 01/04/19 - Allergies Allergies/Adverse Reactions: Allergies Allergy/AdvReac Type Severity Reaction Status Date / Time Narcotics AdvReac Nausea Uncoded 01/04/19 09:49 - Social History Does the pt smoke?: Yes Smoking Status: Current every day smoker Does the pt drink ETOH?: No Does the pt have substance abuse?: No - Immunizations Immunizations are current?: Yes Immunizations: TDAP >10years/unknown - POLST Patient has POLST: No PD ED PE NORMAL - Vitals Vital signs reviewed: Yes - General General: Alert and oriented X 3, No acute distress, Well developed/nourished - HEENT HEENT: Pharynx benign - Neck Neck: Supple, no meningeal sign, No adenopathy - Cardiac Cardiac: RRR, No murmur - Respiratory Respiratory: Clear bilaterally - Abdomen Abdomen: Normal bowel sounds, Soft, Non tender, Non distended - Back Back: No CVA TTP - Derm Derm: Normal color, Warm and dry - Neuro Neuro: Alert and oriented X 3, No motor deficit, Normal speech Results - Vitals Vitals: Vital Signs - 24 hr 01/04/19 01/04/19 01/04/19 09:47 10:27 11:21 Temperature 36.0 C L 36.7 C Heart Rate 79 64 57 L Respiratory 16 18 18 Rate Blood Pressure 133/109 H 141/84 H 131/73 H O2 Saturation 100 100 100 01/04/19 11:36 Temperature 36.6 C Heart Rate 59 L Respiratory 16 Rate Blood Pressure 129/85 H O2 Saturation 99 Oxygen O2 Source Room air PD MEDICAL DECISION MAKING - ED course Complexity details: reviewed old records, reviewed results, considered differential (had had CT abd last week, results pending from PMD ([facility]). labs 4 days ago. I did not see need to repeat them. Will focus treatment at possible gastritis, since other labs normal. ), d/w patient Departure - Departure Disposition: 01 Home, Self Care Clinical Impression: Intractable hiccups Condition: Stable Record reviewed to determine appropriate education?: Yes Instructions: ED Hiccups Follow-Up: Jenn Powell MD [Primary Care Provider] - Prescriptions: Docusate Sodium 100 mg PO DAILY #30 capsule Famotidine 20 mg PO DAILY #30 tablet Lidocaine Viscous 2% [Xylocaine Viscous 2%] 5 ml PO Q4H PRN #100 ml PRN Reason: Pain Promethazine [Phenergan] 25 mg PO Q6H PRN #30 tab PRN Reason: Nausea / Vomiting Comments: Since you have just had blood test done several days ago and had a CT scan recently, I did not see a reason to repeat these today. Call your primary care tomorrow however to ensure the results on the CT [place] sure no abnormalities. I think your hiccups may be related to a stomach irritation in I would have you try famotidine acid reducing medicine daily for a month. Also a stool softener once or twice daily initially for a few days and then daily after that for couple of weeks. Promethazine every 6 hours if needed for hiccups or nausea. You can use the lidocaine 1 teaspoon with some antacid such as Maalox or Mylanta every the 4 to 6 hours as well if needed for the hiccups as well. Follow-up with your primary care this coming week to see how much improved you are in any further medications. Forms: Activity restrictions Discharge Date/Time: 01/04/19 11:40
[2019-01-04] MEDS ORDERED: MAG HYDROX/AL HYDROX/SIMETH 30 ML UDC PO STA (10:26)
[2019-01-04] MEDS ORDERED: FAMOTIDINE 20 MG TABLET PO STA (10:26)
[2019-01-04] MEDS ORDERED: LIDOCAINE VISCOUS 2% 15 ML UDC MM STA (10:26)
[2019-01-04] MEDS ORDERED: PROMETHAZINE 25 MG/1 ML VIAL IM STA (10:26)
[2019-01-04] MEDS ORDERED: DOCUSATE SODIUM 100 MG CAPSULE PO STA (10:27)
[2019-01-04 11:40] VITALS: BP 129/85
== END 2019-01-04 11:40 | disposition home or self-care (01) ==
LOC: ED 09:35
DX: R06.6 Hiccough (principal); F17.200 Nicotine dependence, unspecified, uncomplicated
CPT/HCPCS: 99283; 99284; A9270

== ENCOUNTER 2019-02-14 11:51 | Emergency (ER) | payer OTHER ==
[2019-02-14 12:48] LABS: BASOPHILS # (AUTO) 0.1 10^3/uL (0.0-0.1); BASOPHILS % (AUTO) 0.8 %; EOSINOPHILS # (AUTO) 0.1 10^3/uL (0.0-0.7); EOSINOPHILS % (AUTO) 0.9 %; HGB - HEMOGLOBIN 16.1 g/dL (14.0-18.0); LYMPHOCYTES # (AUTO) 1.6 10^3/uL (1.5-3.5); LYMPHOCYTES % (AUTO) 16.7 %; MEAN CORPUSCULAR HEMOGLOBIN 30.3 pg (27.0-31.0); MEAN CORPUSCULAR HGB CONC 32.9 g/dL (32.0-36.0); MEAN CORPUSCULAR VOLUME 92.3 fL (80.0-94.0); MEAN PLATELET VOLUME 9.8 fL (7.4-11.4); MONOCYTES # (AUTO) 0.7 10^3/uL (0.0-1.0); MONOCYTES % (AUTO) 7.5 %; NEUTROPHILS % (AUTO) 73.6 %; PLT - PLATELET COUNT 245 10^3/uL (130-450); RED BLOOD COUNT 5.31 10^6/uL (4.70-6.10); RED CELL DISTRIBUTION WIDTH 13.8 % (12.0-15.0); WHITE BLOOD COUNT 9.5 x10^3/uL (4.8-10.8)
[2019-02-14 12:59] LABS: ALBUMIN 3.6 g/dL (3.2-5.5); BILIRUBIN,TOTAL 0.7 mg/dL (0.2-1.0); CALCIUM 9.2 mg/dL (8.5-10.3); TOTAL PROTEIN 7.1 g/dL (6.7-8.2)
--- NOTE | 2019-02-14 14:44 | ED Physician Documentation ---
PD HPI ABD PAIN - Stated complaint Stated Complaint: ABD PX/WEAKNESS - Chief complaint Chief Complaint: Abd Pain - History obtained from History obtained from: Patient, Family - History of Present Illness Timing - onset: How many months ago (3) Timing - details: Still present Associated symptoms: Nausea, Vomiting. No: Fever, Constipation, Near syncope / syncope Recently seen: Not recently seen - Additional information Additional information: This is a 63-year-old man who presents with complaints that he has had hiccups on a nearly daily basis for the past 3 months. Saw a GI specialist in [place] and they have scheduled him for an endoscopy on March 03 but nobody has been able to get them under control. He has tried prochlorperazine without relief. He was given Zofran which he is not taking. He began vomiting again and yesterday he had a dark bowel movement. He is concerned because his blood pressure is higher than normal. No fever. Patient has also been trying Mae- [place]. Denies any dysuria. He mentioned that when this first started back in November he was seen in the emergency department and had a head CT and they saw some abnormality on it. They were trying to refer him to a specialist but he did not want to go all the way to the [facility] in [place] so subsequently has been trying to set him up with someone else but so far he has not seen a neurosurgeon. Review of Systems Constitutional: reports: Weight Loss (20 pounds in past 3 months). denies: Fever Cardiac: denies: Chest pain / pressure Respiratory: denies: Dyspnea GI: reports: Abdominal Pain, Nausea, Vomiting, Other (Hiccups) : denies: Dysuria Neurologic: reports: Generalized weakness. denies: Focal weakness PD PAST MEDICAL HISTORY - Past Medical History Cardiovascular: None Respiratory: None Neuro: None GI: Cholelithiasis : Other HEENT: None Psych: None Musculoskeletal: Osteoarthritis - Past Surgical History Past Surgical History: Yes General: Cholecystectomy, Colonoscopy - Present Medications Home Medications: Ambulatory Orders Medication Instructions Recorded Confirmed Naproxen 500 mg PO BID #20 tablet 12/03/18 Tramadol HCl 50 mg PO Q6H PRN #15 tablet 12/03/18 Simethicone [Gas Relief] 125 mg PO TID PRN #21 capsule 12/09/18 Ondansetron Odt [Zofran] 4 mg TL Q6H PRN #10 tablet 12/31/18 Docusate Sodium 100 mg PO DAILY #30 capsule 01/04/19 Famotidine 20 mg PO DAILY #30 tablet 01/04/19 Lidocaine Viscous 2% [Xylocaine 5 ml PO Q4H PRN #100 ml 01/04/19 Viscous 2%] Promethazine [Phenergan] 25 mg PO Q6H PRN #30 tab 01/04/19 Baclofen [Lioresal] 10 mg PO TID #30 tablet 02/14/19 Gabapentin 300 mg PO BID #20 capsule 02/14/19 - Allergies Allergies/Adverse Reactions: Allergies Allergy/AdvReac Type Severity Reaction Status Date / Time Narcotics AdvReac Nausea Uncoded 02/14/19 11:56 - Social History Does the pt smoke?: Yes Smoking Status: Current every day smoker Does the pt drink ETOH?: No Does the pt have substance abuse?: No - Immunizations Immunizations are current?: Yes Immunizations: TDAP >10years/unknown - POLST Patient has POLST: No PD ED PE NORMAL - Vitals Vital signs reviewed: Yes - General General: Alert and oriented X 3, No acute distress, Well developed/nourished, Other (Repetitive hiccups) - HEENT HEENT: Atraumatic, PERRL, Moist mucous membranes, Pharynx benign - Neck Neck: No adenopathy, Thyroid normal - Cardiac Cardiac: RRR, No murmur, Strong equal pulses - Respiratory Respiratory: No respiratory distress, Clear bilaterally - Abdomen Abdomen: Normal bowel sounds, Soft, Non tender, No organomegaly - Derm Derm: Normal color, No rash - Extremities Extremities: No deformity, No calf tenderness / cord - Neuro Neuro: Alert and oriented X 3, inside b2b sales 2-12 intact, No motor deficit, No sensory deficit, Normal speech - Psych Psych: Normal mood, Normal affect Results - Vitals Vitals: Vital Signs - 24 hr 02/14/19 02/14/19 02/14/19 11:57 14:30 15:44 Temperature 37.5 C 36.9 C Heart Rate 80 69 66 Respiratory 17 18 18 Rate Blood Pressure 141/72 H 148/84 H 149/77 H O2 Saturation 100 98 100 02/14/19 02/14/19 02/14/19 16:41 18:21 19:58 Temperature 36.9 C Heart Rate 74 83 78 Respiratory 18 18 16 Rate Blood Pressure 152/77 H 126/72 137/79 H O2 Saturation 100 96 96 Oxygen O2 Source Room air - Labs Labs: Laboratory Tests 02/14/19 02/14/19 02/14/19 12:35 12:35 15:45 WBC 9.5 RBC 5.31 Hgb 16.1 Hct 49.0 MCV 92.3 MCH 30.3 MCHC 32.9 RDW 13.8 Plt Count 245 MPV 9.8 Neut # (Auto) 7.0 H Lymph # (Auto) 1.6 Dickey # (Auto) 0.7 Eos # (Auto) 0.1 Baso # (Auto) 0.1 Absolute Nucleated RBC 0.00 Nucleated RBC % 0.0 Sodium 141 Potassium 4.1 Chloride 104 Carbon Dioxide 29 Anion Gap 8.0 BUN 14 Creatinine 1.0 Estimated GFR (MDRD) 76 L Glucose 113 H Calcium 9.2 Total Bilirubin 0.7 AST 18 ALT 17 Alkaline Phosphatase 92 Total Protein 7.1 Albumin 3.6 Globulin 3.5 Albumin/Globulin Ratio 1.0 Lipase 22 Urine Color DARK YELLOW Urine Clarity CLEAR Urine pH 6.0 Ur Specific Tea 1.025 Urine Protein TRACE Urine Glucose (UA) NEGATIVE Urine Ketones TRACE Urine Occult Blood NEGATIVE Urine Nitrite NEGATIVE Urine Bilirubin SMALL H Urine Urobilinogen 0.2 (NORMAL) Ur Leukocyte Esterase TRACE H Urine RBC 11-25 H Urine WBC 6-10 H Ur Squamous Epith Cells NONE SEEN Urine Bacteria Rare Urine Mucus Few Strands Ur Microscopic Review INDICATED Urine Culture Comments INDICATED PD MEDICAL DECISION MAKING - ED course Complexity details: reviewed results, re-evaluated patient, d/w patient, d/w family ED course: Labs are normal. Patient was initially given baclofen orally he said it made his hiccups worse. He was then given gabapentin and even though he said it made his hiccups worse when I went in the room it was the first time I have ever interacted with him that he was not hiccuping. I reached out to [facility] about consultation with a neurosurgeon regarding this lesion in his fourth ventricle. After a multi hour wait they phoned me back They requested a repeat CT scan which was pushed forward to them. In the meantime they did call me back and notified me that the neurosurgeons were in the operating room and it would be hours before the would be available for consultation. I discussed this with the patient. He did not want to wait and he did not want to have to follow-up with his primary care provider however that really the only options that we have at this time. After lengthy discussion and his initial refusal to take prescriptions of baclofen or gabapentin I encouraged him to take his medications on a consistent basis for 2 to 3 days before he decides that the really not helping him. In addition he is been to the emergency department here on multiple occasions for this problem and I frankly told him we have done everything that we can here for him's at this point. He needs to follow-up with the neurosurgeon and follow through with the endoscopy by the GI specialist to see if there is any possibility of resolution for his hiccups. Late entry: As I was preparing the discharge for the patient a neurosurgeon from the [facility] did call me back and we discussed the case. He felt the patient should be worked up with MRI on an nonurgent basis and referred to their clinic only if there was concerns that the lesion needed a surgical intervention. The discharge paperwork reflected this information to the patient. Patient did receive a note for work which was 1 of his major concerns when I initially saw him today for his evaluation. Departure - Departure Disposition: 01 Home, Self Care Clinical Impression: Intractable hiccups Condition: Good Instructions: ED Hiccups Follow-Up: Jenn Powell MD [Primary Care Provider] - Prescriptions: Baclofen [Lioresal] 10 mg PO TID #30 tablet Gabapentin 300 mg PO BID #20 capsule Comments: Take the baclofen 3 times a day and the gabapentin twice a day for the next 2 to 3 days to see if they provide any relief from the hiccups. You need to contact your primary care provider on Saturday about MRI of the brain which is been recommended by neurosurgery. If the MRI is of significant concern then they will see you in their clinic at the [facility]. Follow through with the GI evaluation that has been scheduled for you. Forms: Activity restrictions Discharge Date/Time: 02/14/19 19:59
[2019-02-14] MEDS ORDERED: BACLOFEN 10 MG TABLET PO STA (15:39)
[2019-02-14 15:52] LABS: GLUCOSE, URINE (UA) NEGATIVE (NEGATIVE); KETONES,URINE (UA) TRACE mg/dL (NEGATIVE); LEUKOCYTE ESTERASE, URINE TRACE (NEGATIVE); NITRITE,URINE NEGATIVE (NEGATIVE); OCCULT BLOOD,URINE NEGATIVE (NEGATIVE); PROTEIN,URINE TRACE mg/dL (NEGATIVE); UROBILINOGEN,URINE 0.2 (NORMAL) E.U./dL (NORMAL)
[2019-02-14 15:58] LABS: BILIRUBIN,URINE SMALL (NEGATIVE); CLARITY,URINE CLEAR (CLEAR); ICTOTEST,URINE POSITIVE
[2019-02-14 15:59] LABS: BACTERIA,URINE Rare /HPF (None Seen); MUCUS,URINE Few Strands; SQUAMOUS EPITHELIAL CELL,UR NONE SEEN (<= Few)
[2019-02-14] MEDS ORDERED: BACLOFEN 10 MG TABLET PO SCH (16:00)
[2019-02-14] MEDS ORDERED: GABAPENTIN 100 MG CAPSULE PO STA (17:36)
--- NOTE | 2019-02-14 18:46 | CT Report ---
Reason: f/u abnormality Procedure Date: 02/14/2019 Accession Number: [id number] / [id number] Procedure: CT - HEAD WO CPT Code: Final Report FULL RESULT: EXAM: CT HEAD EXAM DATE: 02/14/2019 06:02 PM. CLINICAL HISTORY: F/u abnormality. COMPARISON: HEAD W/O 12/03/2018 7:57 AM. TECHNIQUE: Multiaxial CT images were obtained from the foramen magnum to the vertex. Reformats: Sagittal and coronal. IV contrast: None. In accordance with CT protocol optimization, one or more of the following dose reduction techniques were utilized for this exam: automated exposure control, adjustment of mA and/or KV based on patient size, or use of iterative reconstructive technique. FINDINGS: Parenchyma: No intraparenchymal hemorrhage. No evidence of mass, midline shift or CT findings of acute territorial infarction. Rosales-white differentiation is distinct. Extraaxial Spaces: No subdural or epidural collections identified. Ventricles: Partially calcified structure measuring approximately 1.9 cm in the region of the inferior aspect of the fourth ventricle, stable appearing. Sinuses: Imaged paranasal sinuses, orbits, and mastoids show no significant abnormality. Bones: No evidence of acute fracture or calvarial defect. Other: None. IMPRESSION: No interval change. Redemonstration of a partially calcified structure in the region of the floor of the fourth ventricle. If not already performed, nonemergent contrast-enhanced MRI and neurosurgical consultation is recommended. RADIA
[2019-02-14 19:59] VITALS: BP 137/79
== END 2019-02-14 19:59 | disposition home or self-care (01) ==
LOC: ED 11:51
DX: R06.6 Hiccough (principal); R90.89 Other abnormal findings on diagnostic imaging of central nervous system; F17.200 Nicotine dependence, unspecified, uncomplicated; Z02.79 Encounter for issue of other medical certificate
CPT/HCPCS: 36415; 70450; 80053; 81001; 83690; 85025; 87086; 99284; A9270; 81003

== ENCOUNTER 2019-02-28 11:42 | Emergency (ER) | payer OTHER ==
[2019-02-28 11:54] VITALS: BP 134/77
--- NOTE | 2019-02-28 12:16 | ED Physician Documentation ---
PD HPI UPPER EXT INJURY - Stated complaint Stated Complaint: wrist injury - Chief complaint Chief Complaint: Trauma Ext - History obtained from History obtained from: Patient (This is a right-handed gentleman who was at work about an hour ago and slipped and fell on some stairs falling on an outstretched left wrist. He has moderate pain of the dorsal left wrist. No other injuries. Declines pain medication on initial evaluation.) Review of Systems Constitutional: reports: Reviewed and negative Cardiac: reports: Reviewed and negative Respiratory: reports: Reviewed and negative PD PAST MEDICAL HISTORY - Past Medical History Cardiovascular: None Respiratory: None Neuro: None GI: Cholelithiasis : Other HEENT: None Psych: None Musculoskeletal: Osteoarthritis - Past Surgical History Past Surgical History: Yes General: Cholecystectomy, Colonoscopy - Present Medications Home Medications: Ambulatory Orders Medication Instructions Recorded Confirmed Naproxen 500 mg PO BID #20 tablet 12/03/18 Tramadol HCl 50 mg PO Q6H PRN #15 tablet 12/03/18 Simethicone [Gas Relief] 125 mg PO TID PRN #21 capsule 12/09/18 Ondansetron Odt [Zofran] 4 mg TL Q6H PRN #10 tablet 12/31/18 Docusate Sodium 100 mg PO DAILY #30 capsule 01/04/19 Famotidine 20 mg PO DAILY #30 tablet 01/04/19 Lidocaine Viscous 2% [Xylocaine 5 ml PO Q4H PRN #100 ml 01/04/19 Viscous 2%] Promethazine [Phenergan] 25 mg PO Q6H PRN #30 tab 01/04/19 Baclofen [Lioresal] 10 mg PO TID #30 tablet 02/14/19 Gabapentin 300 mg PO BID #20 capsule 02/14/19 Hydrocodone/Acetaminophen 1 - 2 each PO Q6H PRN #7 tablet 02/28/19 [Hydrocodon-Acetaminophen 5-325] - Allergies Allergies/Adverse Reactions: Allergies Allergy/AdvReac Type Severity Reaction Status Date / Time Narcotics AdvReac Nausea Uncoded 02/28/19 11:52 - Social History Does the pt smoke?: Yes Smoking Status: Current every day smoker Does the pt drink ETOH?: No Does the pt have substance abuse?: No - Immunizations Immunizations are current?: Yes Immunizations: TDAP >10years/unknown - POLST Patient has POLST: No PD ED PE NORMAL - Vitals Vital signs reviewed: Yes - General General: Alert and oriented X 3, No acute distress - Neck Neck: No bony TTP - Extremities Extremities: Other (Mildly tender over the dorsal distal wrist without deformity. Not much in the way of carpal tenderness. Limited range of motion due to pain. No hand or elbow tenderness. Of note he had a very tight wedding ring on and was starting to get some swelling, this was removed during examination with his permission.) - Neuro Neuro: Alert and oriented X 3, Normal speech Results - Vitals Vitals: Vital Signs - 24 hr 02/28/19 11:52 Temperature 36.6 C Heart Rate 70 Respiratory 17 Rate Blood Pressure 134/77 H O2 Saturation 97 Oxygen O2 Source Room air - Rads (name of study) L wrist Radiology: EMP read contemporaneously (To my eye looks like there was probably a distal radial fracture, the radiologist felt like it was all chronic. Given that this is the area of maximal tenderness, he was splinted and it is treated as a fracture pending follow-up.) Procedures - Splint (location) Left arm Splint applied by: Physician Type of splint: Fiberglass, Short arm, Volar cock up Other: Patient tolerated well, No complications, Neurovascular intact Departure - Departure Disposition: 01 Home, Self Care Clinical Impression: Fracture of distal end of left ulna Qualifiers: Encounter type: initial encounter Fracture type: closed Fracture morphology: unspecified fracture morphology Qualified Code(s): S52.602A - Unspecified fracture of lower end of left ulna, initial encounter for closed fracture Condition: Good Record reviewed to determine appropriate education?: Yes Instructions: ED Fx Upper Ext Prescriptions: Hydrocodone/Acetaminophen [Hydrocodon-Acetaminophen 5-325] 1 - 2 each PO Q6H PRN #7 tablet PRN Reason: pain Comments: Follow-up with the orthopedic surgeons on [facility], call the [facility] on Saturday to make an appointment. Take the copy of the x-ray on CD with you for that appointment. If pain is not bad you can take Tylenol. If it is bad you can take the prescription. Do not take Tylenol with the prescription. Keep it elevated. Return for new or worsening symptoms. Do not remove the splint or get it wet. Forms: Activity restrictions Discharge Date/Time: 02/28/19 12:57
--- NOTE | 2019-02-28 13:03 | XRAY Report ---
Reason: wrist injury Procedure Date: 02/28/2019 Accession Number: [id number] / [id number] Procedure: XR - Wrist 4 View LT CPT Code: Final Report FULL RESULT: EXAM: LEFT WRIST RADIOGRAPHY EXAM DATE: 02/28/2019 12:31 PM. CLINICAL HISTORY: Left wrist injury. Fall on outstretched hand this morning COMPARISON: None. TECHNIQUE: 4 views. FINDINGS: Bones: Small corticated osseous density adjacent to the tip of the ulnar styloid representing an unfused ossicle versus remote trauma. Prominent subchondral cysts in the ulnar head. No acute fracture. Joints: Normal alignment. Soft Tissues: Corticated soft tissue calcifications projecting in the distal radioulnar joint IMPRESSION: 1. Corticated soft tissue calcifications projecting in the distal radioulnar joint. 2. Prominent subchondral cysts in the ulnar head, presumably degenerative etiology. 3. No acute fracture. RADIA
== END 2019-02-28 12:57 | disposition home or self-care (01) ==
LOC: ED 11:42
DX: S52.602A Unspecified fracture of lower end of left ulna, initial encounter for closed fracture (principal); W10.9XXA Fall (on) (from) unspecified stairs and steps, initial encounter; Y92.89 Other specified places as the place of occurrence of the external cause; Y99.0 Civilian activity done for income or pay; F17.200 Nicotine dependence, unspecified, uncomplicated
CPT/HCPCS: 29125; 99282; 99283

== ENCOUNTER 2019-03-07 13:23 | Outpatient (CLI) | payer OTHER ==
--- NOTE | 2019-03-07 16:47 | MRI Report ---
Reason: PAIN IN LT WRIST Procedure Date: 03/07/2019 Accession Number: [id number] / [id number] Procedure: MRI - Wrist LT W/O CPT Code: Final Report FULL RESULT: EXAM: LEFT WRIST MRI WITHOUT CONTRAST EXAM DATE: 03/07/2019 02:14 PM. CLINICAL HISTORY: Pain in left wrist. COMPARISON: WRIST 4 VIEW LT 02/28/2019 12:21 PM. TECHNIQUE: Multiplanar, multisequence T1-weighted and fluid-sensitive sequences of the wrist without contrast. Other: None. FINDINGS: Bones: There are multiple subchondral cysts with surrounding edema at the ulnar head. There is edema and cyst formation in the adjacent radius, at the distal radioulnar joint. There is moderate edema of the hamate and bases of the fourth and fifth metacarpals. There is edema of the posterior aspect of the capitate as well. There are multiple cysts in the triquetrum. There is a small focus of subchondral edema in the base of the first metacarpal, and in the adjacent trapezium. Subchondral cysts are also seen in the distal scaphoid. Cartilage: There is moderate erosion of the hyaline cartilage of the fourth and fifth carpometacarpal joints. There is severe erosion of the cartilage of the distal radial ulnar joint, and moderate erosion of the radiocarpal articulation. There are multiple loose bodies in the distal radioulnar joint visible on the recent x-ray, measuring up to 6 mm in maximum diameter. There is a large distal radioulnar joint effusion. There is a moderate-sized effusion of the midcarpal and radiocarpal joints. There is a full-thickness tear of the TFC immediately lateral to the ulnar styloid attachments. Ligaments: The scapholunate and lunotriquetral ligaments are intact. Tendons: The extensor compartment I through and flexor tendons are unremarkable. Musculature: No edema or fatty atrophy. Other: The contents of the carpal tunnel, including the median nerve, are unremarkable. Guyons canal is unremarkable. There is a 4 mm diameter ganglion cyst anterior to the radial styloid process. There is moderate subcutaneous edema, particularly over the medial aspect of the wrist. IMPRESSION: 1. 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 2. Moderate osteoarthritis of the triscaphe joint and first carpometacarpal joint. 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 3. Subcutaneous edema surrounding the wrist, worse in the medial aspect. 4. 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 RADIA
== END 2019-03-07 13:24 | disposition home or self-care (01) ==
LOC: DI 13:23
PROVIDERS: ATTEND Orthopaedic Surgery
DX: M18.12 Unilateral primary osteoarthritis of first carpometacarpal joint, left hand (principal); M19.032 Primary osteoarthritis, left wrist; M24.032 Loose body in left wrist; M25.432 Effusion, left wrist; R60.0 Localized edema; S63.592A Other specified sprain of left wrist, initial encounter

== ENCOUNTER 2019-11-10 13:36 | Outpatient (CLI) | payer OTHER ==
[2019-11-10] MEDS ORDERED: GADOBUTROL 10 MMOL/10 ML VIAL ONE (13:51)
[2019-11-10] MEDS ORDERED: GADOBUTROL 10 MMOL/10 ML VIAL IVP ONE (14:48)
--- NOTE | 2019-11-10 15:18 | MRI Report ---
PROCEDURE: Brain W/WO INDICATIONS: DIZZINESS AND GIDDINESS, HEADACHE CONTRAST: IV CONTRAST: Gadavist ml: 10 TECHNIQUE: Noncontrast axial T1 spin echo, axial T2 fast spin echo, sagittal and axial FLAIR, coronal T2 fast sp in echo, axial gradient echo, axial diffusion and ADC through the brain. After the administration of contrast, axial and coronal T1 spin echo with fat saturation through the brain. COMPARISON: Correlation is made with prior head CT examinations 11/02/2019, 02/14/2018, 11/25/2018 FINDINGS: Image quality: Excellent. CSF spaces: Basal cisterns are patent. No extra-axial fluid collections. Ventricles are normal in size and shape. Brain: There is again seen a mass emanating anteriorly from the cerebellar vermis along the inferior aspect of the fourth ventricle. This mass is mildly hyperintense on T2-weighted imaging and measures 20 x 14 x 13 mm. A mild degree of peripheral enhancement can be seen involving this mass, particular ly along the inferior aspect of the mass, as on series 1001 image 78 No midline shift. No intracranial hemorrhage is seen. There is cerebral volume loss for age. There i s periventricular white matter chronic small vessel ischemic change. The brainstem appears normal. Diffusion-weighted images demonstrate no acute ischemic insults. No chronic ischemic insults. Jeni l intravascular flow voids are present. Skull and face: Calvarial marrow is normal in signal. Orbits appear normal. Sinuses: There is a mucous retention cyst seen within the inferior aspect of the right maxillary sin us. Sinuses and mastoids otherwise appear clear. IMPRESSION: There is a 2 cm partially enhancing mass seen along the aspect of the fourth ventricle, which projects anteriorly from the cerebellar vermis. This appears similar to the prior CT examinatio ns. 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 No associated hydrocephalus is seen at this time. If not already done, a neurosurgical consultation is suggested. Reviewed by: Gonzalez Young MD on 11/10/2019 2:16 PM [facility] Approved by: Gonazlez Young MD on 11/10/2019 2:16 PM [facility] Station ID: [id number]
== END 2019-11-10 13:37 | disposition home or self-care (01) ==
LOC: DI 13:36
PROVIDERS: ATTEND Family Medicine
DX: G93.89 Other specified disorders of brain (principal)
CPT/HCPCS: 70553; A9585

== ENCOUNTER 2019-11-27 12:11 | Outpatient (CLI) | payer OTHER | END 2019-11-27 12:12 | disposition home or self-care (01) | LOC: LAB 12:11 | PROVIDERS: ATTEND Surgery | DX: Z01.812 Encounter for preprocedural laboratory examination (principal); K40.90 Unilateral inguinal hernia, without obstruction or gangrene, not specified as recurrent; Z20.828 Contact with and (suspected) exposure to other viral communicable diseases ==

== ENCOUNTER 2019-12-01 06:21 | Day surgery (SDC) | payer OTHER ==
[2019-12-01] MEDS ORDERED: CEFAZOLIN SODIUM IN 0.9 % NACL 2 GM/100 ML BAG IV ONE (06:26)
[2019-12-01] MEDS ORDERED: LACTATED RINGERS 1,000 ML IV ONE ×2 (06:31→08:58)
--- NOTE | 2019-12-01 07:13 | ANESTHESIA ---
Pre-Anesthesia VS, & Labs - Diagnosis R inguinal hernia - Procedure R inguinal hernia repair Vital Signs: Temp Pulse Resp BP Pulse Ox 36.1 C L 76 20 147/89 H 99 12/01/19 06:31 12/01/19 06:31 12/01/19 06:31 12/01/19 06:31 12/01/19 06:31 Height 6 ft 7 in Weight (kg) 94.8 kg Body Mass Index 25.3 - NPO >8 hours Home Medications and Allergies Home Medications: Ambulatory Orders Polyethylene Glycol 3350 [Miralax] 0.5 - 1 each PO DAILY 11/24/19 Tamsulosin HCl [Flomax] 0.4 mg PO DAILY 11/24/19 Polyethylene Glycol 3350 [Miralax] 0.5 - 1 each PO DAILY 11/24/19 Tamsulosin HCl [Flomax] 0.4 mg PO DAILY 11/24/19 Allergies/Adverse Reactions: Allergies Allergy/AdvReac Type Severity Reaction Status Date / Time Opioids - Morphine Analogues AdvReac Intermediate Nausea Verified 11/10/19 14:53 Anes History & Medical History - Anesthetic History Anesthesia Complications: reports: No previous complications Family history of Anesthesia Complications: Denies Family history of Malignant Hyperthermia: Denies - Medical History Cardiovascular: reports: None Pulmonary: reports: None Gastrointestinal: reports: Cholelithiasis Urinary: reports: Benign prostate hypertrophy, Frequency Neuro: reports: None Musculoskeletal: reports: Osteoarthritis, Other Endocrine/Autoimmune: reports: None Blood Disorders: reports: None Skin: reports: None Smoking Status: Current every day smoker - Surgical History General: Cholecystectomy, Colonoscopy Exam General: Alert, Oriented x3, Cooperative Dental: Dentures full Upper, Dentures full Lower Mouth Openin Fingerbreadth Neck Mobility: Normal Mallampati classification: II Thyromental Distance: greater than 6 cm Respiratory: Lungs clear, Normal breath sounds Cardiovascular: Regular rate Neurological: Normal speech Mental/Cognitive Status: Alert/Oriented X3, Normal for patient Cognitive Status: Within normal limits Plan Anesthesia Type: MAC Consent for Procedure(s) Verified and Reviewed: Yes Code Status: Attempt Resuscitation ASA classification: 2-Mild systemic disease Is this case an emergency?: No
[2019-12-01] MEDS ORDERED: ACETAMINOPHEN 1,000 MG/100 ML 100 ML IV ONE (07:25)
[2019-12-01] MEDS ORDERED: DEXAMETHASONE 4 MG/ML VIAL IVP ONE (07:25)
[2019-12-01] MEDS ORDERED: fentaNYL 100 MCG/2 ML VIAL IVP ONE (07:25)
[2019-12-01] MEDS ORDERED: PROPOFOL 1000 MG/100 ML IV ONE (07:25)
[2019-12-01] MEDS ORDERED: MIDAZOLAM 2 MG/2 ML VIAL IVP ONE (07:25)
[2019-12-01] MEDS ORDERED: ONDANSETRON 4 MG/2 ML VIAL IVP ONE (07:25)
[2019-12-01] MEDS ORDERED: KETOROLAC 30 MG/ML VIAL IVP ONE (07:25)
[2019-12-01] MEDS ORDERED: LIDOCAINE-MPF 2% 5 ML VIAL IM ONE (07:25)
[2019-12-01] MEDS ORDERED: BUPIVACAINE 0.25% PF 30 ML VIAL ONE (07:32)
[2019-12-01] MEDS ORDERED: ceFAZolin 1 GM VIAL ONE (07:33)
[2019-12-01] MEDS ORDERED: LIDOCAINE 1% 50 ML MDV ONE (07:41)
[2019-12-01] MEDS ORDERED: BUPIVACAINE 0.25% PF 30 ML VIAL SUBQ ONE (07:50)
[2019-12-01] MEDS ORDERED: LIDOCAINE 1%-EPI 1:100000 30 ML MDV SUBQ ONE (07:51)
[2019-12-01] MEDS ORDERED: NALOXONE 0.4 MG/ML VIAL IVP PRN (08:00)
[2019-12-01] MEDS ORDERED: ePHEDrine 50 MG/ML VIAL IVP PRN (08:00)
[2019-12-01] MEDS ORDERED: METOCLOPRAMIDE 10 MG/2 ML VIAL IVP PRN (08:00)
[2019-12-01] MEDS ORDERED: LACTATED RINGERS 1,000 ML IV SCH (08:00)
[2019-12-01] MEDS ORDERED: ONDANSETRON 4 MG/2 ML VIAL IVP PRN (08:00)
[2019-12-01] MEDS ORDERED: ATROPINE ABBOJECT 1 MG/10 ML SYRINGE IVP PRN (08:00)
[2019-12-01] MEDS ORDERED: HYDROmorphone 0.5 MG/0.5 ML SYRINGE IVP PRN (08:00)
[2019-12-01] MEDS ORDERED: fentaNYL 100 MCG/2 ML VIAL IVP PRN (08:00)
[2019-12-01] MEDS ORDERED: HYDROcod/ACETAM 5/325 MG TABLET PO PRN (09:01)
[2019-12-01 09:40] VITALS: BP 116/97
--- NOTE | 2019-12-01 10:37 | OPERATIVE REPORT ---
DATE OF SERVICE: 12/01/2019 Physician: Govind Jacinto MD PREOPERATIVE DIAGNOSIS: Right inguinal hernia. POSTOPERATIVE DIAGNOSIS: Right inguinal hernia, large direct. PROCEDURE PERFORMED: Open right inguinal hernia repair with mesh, Olesya. SURGEON: Govind Jacinto MD TALENT MANAGEMENT SPECIALIST: None. ANESTHESIA: Monitored anesthesia care, IV sedation, local anesthesia. COMPLICATIONS: None. SPECIMEN: Herniated preperitoneal adipose tissue removed; however, not sent for pathology. ESTIMATED BLOOD LOSS: None. COMPLICATIONS: None. FINDINGS: A very large direct defect. The floor was repaired with a 2-0 silk pursestring suture. All 3 nerves were identified, and carefully protected and preserved. INDICATIONS FOR PROCEDURE: The patient is a 64-year-old gentleman with a very large, symptomatic, right inguinal hernia. He presents for open repair with mesh. Risks discussed and alternatives discussed, all questions answered and consent obtained. DETAILS OF PROCEDURE: The patient was properly identified, brought to the operating room and placed in supine position. He voided prior to surgery. Monitored anesthesia care was given, as well as IV sedation. Sequential compression devices were placed. He was prepped and draped in a sterile fashion, given preoperative antibiotics. A 6 cm incision was made in the direction of Yi lines, just cephalad of the pubic tubercle. Dissection proceeded with cutting current. He had 3 veins present. All were identified, clamped, divided, and tied with 3-0 Vicryl. Dissection proceeded down to the aponeurosis. The aponeurosis was opened in the direction of its fibers extending to the external ring. The cord structures were mobilized and brought up. He had a very large direct bulge, measuring approximately 6 x 6 cm. This was carefully peeled off from the cord structures. The genitofemoral nerve was identified. The floor was repaired with a 2-0 silk pursestring suture. The iliohypogastric nerve was identified. The ilioinguinal nerve ran in a medial direction. It was sharply mobilized to allow repair without injury. Preperitoneal adipose tissue along the cord was removed. He did not have an indirect inguinal hernia. A Bard regular weight polypropylene mesh was cut to size and placed in Olesya fashion. Multiple interrupted 0 Ethibond sutures were used. Sutures were placed close to the pubic tubercle and Jorge Luis ligament area along the shelving border of the Poupart ligament and medially along the musculature of the internal oblique. He did not have fascia medially. The medial tail of the mesh was secured to the shelving border of Poupart ligament with 3 interrupted 0 Ethibond sutures. Additional suture was placed in the crotch of the mesh, recreating the internal ring of appropriate size. The aponeurosis was closed with a running 2-0 Vicryl suture. Wilder's was closed with interrupted 3-0 Vicryl suture. Skin was closed with a running 4-0 Monocryl subcuticular suture. Dressing was applied. He tolerated the procedure very well. TD: 12/01/2019 09:30 CONNER
--- NOTE | 2019-12-01 10:56 | ANESTHESIA POST OP EVALUATION ---
Anesthesia Post Eval - Post Anesthesia Eval Vitals: Last Vital Signs Temp 36.2 C L 12/01/19 09:30 Pulse 64 12/01/19 09:30 Resp 17 12/01/19 09:30 BP 116/97 H 12/01/19 09:30 Pulse Ox 98 12/01/19 09:30 CV Function Including HR & BP: positive: Stable Pain Control: positive: Satisfactory Nausea & Vomiting: positive: Negative Mental Status: positive: Baseline Respiratory Status: Airway Patent Hydration Status: Satisfactory Anesthesia Complications: positive: None
== END 2019-12-01 06:22 | disposition home or self-care (01) ==
LOC: SDS 06:21
PROVIDERS: ATTEND Surgery
DX: K40.90 Unilateral inguinal hernia, without obstruction or gangrene, not specified as recurrent (principal); N40.0 Benign prostatic hyperplasia without lower urinary tract symptoms; F17.210 Nicotine dependence, cigarettes, uncomplicated
CPT/HCPCS: 49505; C1781; J0131; J7120

== ENCOUNTER 2020-07-18 06:52 | Emergency (ER) | payer OTHER ==
[2020-07-18 07:00] VITALS: BP 160/99
--- OUTSIDE RECORDS SUMMARY | 2020-07-18 07:07 | EXTERNAL MEDICAL SUMMARY RPT | Continuity of Care Document ---
:1955 Demographics Phone Unavailable Preferred Language Unknown Marital Status Unknown Jainism Affiliation Unknown Race Unknown Ethnic Group Unknown Author Organization [facility] Address [address] [phone] Phone Social History date description facility [phone]
--- NOTE | 2020-07-18 07:40 | ED Physician Documentation ---
PD HPI URI - Stated complaint Stated Complaint: HEAD PX/CONGESTION - Chief complaint Chief Complaint: Heent - History obtained from History obtained from: Patient - History of Present Illness Timing - onset: How many days ago (2-3) Timing duration: Days (2-3 days of frontal congestion and some cough, sore throat, with now greenish/yellow nasal outflow and frontal pressure. Had 2nd COVID vaccine last Wed (5 days ago) with just some sore arm the following day.) Timing details: Gradual onset, Still present Associated symptoms: Nasal congestion, Rhinorrhea (now purulent), Sore throat, Dry cough. No: Fever, Chills Contributing factors: Other (smoker). No: Sick contact, Travel, Immunocompromised, COPD / asthma Similar symptoms before: Has not had sx before Recently seen: Not recently seen Review of Systems Constitutional: denies: Fever, Chills Ears: denies: Ear pain Nose: reports: Rhinorrhea / runny nose, Congestion, Sinus pressure / pain (frontal and left maxillary area.) Throat: denies: Sore throat Cardiac: denies: Chest pain / pressure Respiratory: reports: Cough. denies: Dyspnea GI: reports: Diarrhea. denies: Abdominal Pain, Nausea, Vomiting : denies: Dysuria Skin: denies: Rash Neurologic: denies: Headache, Head injury Immunocompromised: denies: Immunocompromised PD PAST MEDICAL HISTORY - Past Medical History Cardiovascular: None Respiratory: None Neuro: None Endocrine/Autoimmune: None GI: Cholelithiasis : Benign prostate hypertrophy, Frequency HEENT: Chronic vision loss Psych: None Musculoskeletal: Osteoarthritis, Other Derm: None - Past Surgical History Past Surgical History: Yes General: Cholecystectomy, Colonoscopy - Present Medications Home Medications: Ambulatory Orders Medication Instructions Recorded Confirmed Polyethylene Glycol 3350 [Miralax] 0.5 - 1 each PO DAILY 11/24/19 11/24/19 Tamsulosin HCl [Flomax] 0.4 mg PO DAILY 11/24/19 12/01/19 Hydrocodone/Acetaminophen 1 each PO Q4HR PRN #20 tablet 12/01/19 [Hydrocodone-Acetamin 5-325 mg] Amoxicillin 500 mg PO TID 7 Days #20 cap 07/18/20 Cetirizine [ZyrTEC] 10 mg PO DAILY #15 tablet 07/18/20 dexAMETHasone [Decadron] 4 mg PO DAILY #5 tablet 07/18/20 - Allergies Allergies/Adverse Reactions: Allergies Allergy/AdvReac Type Severity Reaction Status Date / Time Opioids - Morphine Analogues AdvReac Intermediate Nausea Verified 07/18/20 07:00 - Social History Does the pt smoke?: Yes Smoking Status: Current every day smoker Does the pt drink ETOH?: No Does the pt have substance abuse?: No - Immunizations Immunizations are current?: Yes Immunizations: TDAP >10years/unknown - POLST Patient has POLST: No PD ED PE NORMAL - Vitals Vital signs reviewed: Yes - General General: Alert and oriented X 3, No acute distress, Well developed/nourished - HEENT HEENT: Ears normal, Moist mucous membranes, Pharynx benign - Neck Neck: Supple, no meningeal sign, No adenopathy - Cardiac Cardiac: RRR, No murmur - Respiratory Respiratory: Clear bilaterally - Abdomen Abdomen: Soft, Non tender - Derm Derm: Normal color, Warm and dry, No rash - Extremities Extremities: No calf tenderness / cord - Neuro Neuro: Alert and oriented X 3, No motor deficit, Normal speech Results - Vitals Vitals: Vital Signs - 24 hr 07/18/20 06:58 Temperature 36.4 C L Heart Rate 70 Respiratory 16 Rate Blood Pressure 160/99 H O2 Saturation 100 Oxygen O2 Source Room air PD MEDICAL DECISION MAKING - ED course Complexity details: considered differential (seems URI with now sinusitis. Does not sound like typical post-vaccine symptoms. ), d/w patient Departure - Departure Disposition: 01 Home, Self Care Clinical Impression: Upper respiratory infection Qualifiers: URI type: unspecified URI Qualified Code(s): J06.9 - Acute upper respiratory infection, unspecified Acute sinusitis Qualifiers: Sinusitis location: frontal Recurrence: non-recurrent Qualified Code(s): J01.10 - Acute frontal sinusitis, unspecified Condition: Stable Record reviewed to determine appropriate education?: Yes Instructions: ED Sinusitis Abx Tx Prescriptions: Amoxicillin 500 mg PO TID 7 Days #20 cap dexAMETHasone [Decadron] 4 mg PO DAILY #5 tablet Cetirizine [ZyrTEC] 10 mg PO DAILY #15 tablet Comments: Stay well-hydrated. Tylenol if needed for pains or fevers. It does sound like some either environmental allergies or upper respiratory infection with your basic symptoms. For this we can use Decadron for inflammation and cetirizine for congestion. However it does sound like there may be secondary bacterial infection in the sinuses we can add amoxicillin as directed for this. Recheck if not improving well over the next few days and resolved by 3 to 5 days. Discharge Date/Time: 07/18/20 08:25
[2020-07-18] MEDS ORDERED: CHERRY SYRUP 10 ML UDC PO ONE (08:05)
[2020-07-18] MEDS ORDERED: CETIRIZINE 10 MG TABLET PO STA (08:05)
[2020-07-18] MEDS ORDERED: AMOXICILLIN 250 MG CAPSULE PO STA (08:05)
[2020-07-18] MEDS ORDERED: DEXAMETHASONE 10 MG/ML VIAL PO STA (08:05)
== END 2020-07-18 08:25 | disposition home or self-care (01) ==
LOC: ED 06:52
DX: J06.9 Acute upper respiratory infection, unspecified (principal); J01.10 Acute frontal sinusitis, unspecified; F17.200 Nicotine dependence, unspecified, uncomplicated
CPT/HCPCS: 99283; 99284; A9270

== ENCOUNTER 2020-07-23 20:01 | Emergency (ER) | payer OTHER ==
--- OUTSIDE RECORDS SUMMARY | 2020-07-23 20:04 | EXTERNAL MEDICAL SUMMARY RPT | Continuity of Care Document ---
:1955 Demographics Phone Unavailable Preferred Language Unknown Marital Status Unknown Mosque Affiliation Unknown Race Unknown Ethnic Group Unknown Author Organization [facility] Address [address] [phone] Phone Social History date description facility [phone]
--- OUTSIDE RECORDS SUMMARY | 2020-07-23 20:08 | EXTERNAL MEDICAL SUMMARY RPT | Continuity of Care Document ---
:1955 Demographics Phone Unavailable Preferred Language Unknown Marital Status Unknown Denominational Affiliation Unknown Race Unknown Ethnic Group Unknown Author Organization [facility] Address [address] [phone] Phone Social History date description facility [phone]
[2020-07-23 20:18] LABS: BASOPHILS % (AUTO) 0.1 %; HCT - HEMATOCRIT 45.7 % (42.0-52.0); HGB - HEMOGLOBIN 15.8 g/dL (14.0-18.0); LYMPHOCYTES % (AUTO) 8.7 %; MEAN CORPUSCULAR HEMOGLOBIN 31.4 pg (27.0-31.0); MEAN CORPUSCULAR HGB CONC 34.6 g/dL (32.0-36.0); MEAN CORPUSCULAR VOLUME 90.9 fL (80.0-94.0); MEAN PLATELET VOLUME 9.5 fL (7.4-11.4); MONOCYTES # (AUTO) 0.5 10^3/uL (0.0-1.0); MONOCYTES % (AUTO) 4.4 %; NEUTROPHILS # (AUTO) 9.4 10^3/uL (1.5-6.6); NEUTROPHILS % (AUTO) 85.1 %; PLT - PLATELET COUNT 261 10^3/uL (130-450); RED BLOOD COUNT 5.03 10^6/uL (4.70-6.10); RED CELL DISTRIBUTION WIDTH 13.9 % (12.0-15.0)
[2020-07-23] MEDS ORDERED: SODIUM CHLORIDE 0.9% 1,000 ML IV STA (20:18)
[2020-07-23] MEDS ORDERED: ONDANSETRON 4 MG/2 ML VIAL IVP STA (20:18)
[2020-07-23] MEDS ORDERED: PANTOPRAZOLE 40 MG VIAL IVP STA (20:19)
[2020-07-23] MEDS ORDERED: MAG HYDROX/AL HYDROX/SIMETH 30 ML UDC PO STA (20:22)
[2020-07-23] MEDS ORDERED: LIDOCAINE VISCOUS 2% 15 ML UDC MM STA (20:22)
--- NOTE | 2020-07-23 20:23 | ED Physician Documentation ---
History of Present Illness - Stated complaint Stated Complaint: N/V,HEADACHE - Chief complaint Chief Complaint: Abd Pain - History obtained from History obtained from: Patient - Additonal information Additional information: This is a well-appearing 64-year-old male who presents to the emergency department complaining of feeling weak rundown and vomiting. He was seen early last week and diagnosed with an upper respiratory and sinus infection he has been taking amoxicillin. However he reports that he simply not feeling better he does have a mild cough and states that after taking the amoxicillin he often hiccups and burps. Today he started vomiting and having dry heaves. He denies that he has had any diarrhea. There is no lower abdominal pain. He reports that most the pain is in the upper abdomen. Denies chest pain pain Past surgical history: Cholecystectomy Social: Positive tobacco, no EtOH Meds: Amoxicillin, as needed Tylenol. Review of Systems Constitutional: reports: Fatigue. denies: Fever, Chills, Myalgias Eyes: reports: Reviewed and negative Ears: reports: Reviewed and negative Nose: reports: Rhinorrhea / runny nose, Congestion Throat: reports: Reviewed and negative Cardiac: reports: Chest pain / pressure. denies: Palpitations, Pedal edema, Calf pain Respiratory: reports: Cough. denies: Dyspnea GI: reports: Abdominal Pain, Nausea, Vomiting. denies: Constipation, Diarrhea, Hematemesis : denies: Dysuria, Frequency, Hesitancy Skin: denies: Rash, Lesions Musculoskeletal: reports: Reviewed and negative Neurologic: reports: Headache Psychiatric: reports: Reviewed and negative PD PAST MEDICAL HISTORY - Past Medical History Cardiovascular: None Respiratory: None Neuro: None Endocrine/Autoimmune: None GI: Cholelithiasis : Benign prostate hypertrophy, Frequency HEENT: Chronic vision loss Psych: None Musculoskeletal: Osteoarthritis, Other Derm: None - Past Surgical History Past Surgical History: Yes General: Cholecystectomy, Colonoscopy - Present Medications Home Medications: Ambulatory Orders Medication Instructions Recorded Confirmed Amoxicillin 500 mg PO TID 7 Days #20 cap 07/18/20 07/23/20 Cetirizine [ZyrTEC] 10 mg PO DAILY #15 tablet 07/18/20 07/23/20 dexAMETHasone [Decadron] 4 mg PO DAILY #5 tablet 07/18/20 07/23/20 Ondansetron Odt [Zofran] 4 mg TL Q6H PRN #10 tablet 07/23/20 Pantoprazole [Protonix] 40 mg PO DAILY #30 tablet 07/23/20 - Allergies Allergies/Adverse Reactions: Allergies Allergy/AdvReac Type Severity Reaction Status Date / Time Opioids - Morphine Analogues AdvReac Intermediate Nausea Verified 07/23/20 20:04 - Social History Does the pt smoke?: Yes Smoking Status: Current every day smoker Does the pt drink ETOH?: No Does the pt have substance abuse?: No - Immunizations Immunizations are current?: Yes Immunizations: TDAP >10years/unknown - POLST Patient has POLST: No PD ED PE EXPANDED - General General: Alert, No acute distress - Cardiac Cardiac: Regular Rate, Radial strong equal, Pedal strong equal, Cap refill < 2 sec. No: Murmur Present - Respiratory Respiratory: Clear to ausultation cesar. No: Distress, Labored - Abdomen Abdomen: Normal Bowel sounds, Tender to palpation, Epigastric. No: Rebound, Guarding - Back Back: Normal exam - Neuro Neuro: Alert and Oriented X 3, CNII-XII intact, Normal gait, Normal finger nose, Normal speech - GCS Eye Opening: Spontaneous Motor: Obeys Commands Verbal: Oriented Total: 15 Results - Vitals Vitals: Vital Signs - 24 hr 07/23/20 07/23/20 20:04 20:30 Temperature 36.7 C Heart Rate 64 59 L Respiratory 18 17 Rate Blood Pressure 133/100 H 147/75 H O2 Saturation 99 100 Oxygen O2 Source Room air - EKG (time done) 2024 Rate: Rate (enter#) (57) Rhythm: NSR Crockett: LAD Intervals: Normal CO. No: Prolonged QT QRS: Normal Ischemia: Normal ST segments Compare to prior EKG: Unchanged from prior EKG Computer interpretation: Agree with computer - Labs Labs: Laboratory Tests 07/23/20 07/23/20 07/23/20 20:14 20:14 20:14 WBC 11.0 H RBC 5.03 Hgb 15.8 Hct 45.7 MCV 90.9 MCH 31.4 H MCHC 34.6 RDW 13.9 Plt Count 261 MPV 9.5 Neut # (Auto) 9.4 H Lymph # (Auto) 1.0 L Hardeman # (Auto) 0.5 Eos # (Auto) 0.0 Baso # (Auto) 0.0 Absolute Nucleated RBC 0.00 Nucleated RBC % 0.0 Sodium 142 Potassium 3.6 Chloride 108 Carbon Dioxide 27 Anion Gap 7.0 BUN 15 Creatinine 0.8 Estimated GFR (MDRD) 98 Glucose 141 H Calcium 9.0 Total Bilirubin 0.6 AST 19 ALT 29 Alkaline Phosphatase 92 Troponin I High Sens 4.6 Total Protein 7.0 Albumin 3.5 Globulin 3.5 Albumin/Globulin Ratio 1.0 Lipase 22 Urine Color Urine Clarity Urine pH Ur Specific [place] Urine Protein Urine Glucose (UA) Urine Ketones Urine Occult Blood Urine Nitrite Urine Bilirubin Urine Urobilinogen Ur Leukocyte Esterase Urine RBC Urine WBC Ur Squamous Epith Cells Urine Bacteria Urine Mucus Ur Microscopic Review Urine Culture Comments 07/23/20 20:53 WBC RBC Hgb Hct MCV MCH MCHC RDW Plt Count MPV Neut # (Auto) Lymph # (Auto) [place]eman # (Auto) Eos # (Auto) Baso # (Auto) Absolute Nucleated RBC Nucleated RBC % Sodium Potassium Chloride Carbon Dioxide Anion Gap BUN Creatinine Estimated GFR (MDRD) Glucose Calcium Total Bilirubin AST ALT Alkaline Phosphatase Troponin I High Sens Total Protein Albumin Globulin Albumin/Globulin Ratio Lipase Urine Color YELLOW Urine Clarity CLEAR Urine pH 6.5 Ur Specific [place] 1.025 Urine Protein NEGATIVE Urine Glucose (UA) NEGATIVE Urine Ketones NEGATIVE Urine Occult Blood TRACE-INTA Urine Nitrite NEGATIVE Urine Bilirubin NEGATIVE Urine Urobilinogen 0.2 (NORMAL) Ur Leukocyte Esterase MODERATE H Urine RBC 0-5 Urine WBC 6-10 H Ur Squamous Epith Cells FEW Squamous Urine Bacteria Rare Urine Mucus Few Strands Ur Microscopic Review INDICATED Urine Culture Comments INDICATED - Rads (name of study) CXR Radiology: Final report received (No acute cardiopulmonary process) PD MEDICAL DECISION MAKING - ED course Complexity details: reviewed results, re-evaluated patient, considered differential, d/w patient ED course: 64-year-old male presents the emergency department with generalized feeling of being unwell. He had nausea upper abdominal discomfort. This was most predominant after taking the amoxicillin which often cause stomach upset and burping as well as hiccups. Here in the emergency department we did do a screening EKG that showed no ischemic findings. His high-sensitivity troponin was negative. Chest x-ray showed no acute focal opacities. Screening labs Show no significant abnormalities. This gentleman was given Protonix here in the emergency department as well as lidocaine and Maalox orally. Following this the upper abdominal discomfort improved and he was now tolerating sips of clear liquids. Given lack of lower abdominal pain lower suspicion for appendicitis especially giving the labs and lack of leukocytosis. He previously has had a cholecystectomy as well. This gentleman will be discharged home with prescription for Protonix as well as Zofran. Encourage clear liquids for 1 to 2 days and then slowly advance his diet. I suspect that mild gastritis and GERD is the biggest cause of his abdominal discomfort and vomiting. Emergent return precautions were discussed. Departure - Departure Disposition: Home, Self Care Clinical Impression: Abdominal discomfort, epigastric Vomiting Qualifiers: Vomiting type: unspecified Vomiting Intractability: non-intractable Nausea presence: with nausea Qualified Code(s): R11.2 - Nausea with vomiting, unspecified Condition: Stable Record reviewed to determine appropriate education?: Yes Instructions: ED Nausea Vomiting Inf Td Follow-Up: Caridad Garcia ARNP [Primary Care Provider] - Prescriptions: Pantoprazole [Protonix] 40 mg PO DAILY #30 tablet Ondansetron Odt [Zofran] 4 mg TL Q6H PRN #10 tablet PRN Reason: Nausea / Vomiting Comments: Femi as we discussed I suspect that the amoxicillin may have been causing ou stomach upset. It is okay to stop this medication now. I have prescribed some zofran to help with nausea. use two or trhree times a day. I have also prescribed some protonix a medication that will help with acid indigestion in your stomach Please discuss this ED visit with [facility] primary doctor. Return immediately to the ED for worsening symptoms, fevers, uncontrolled pain or vomiting
[2020-07-23 20:32] LABS: ALBUMIN 3.5 g/dL (3.2-5.5); BILIRUBIN,TOTAL 0.6 mg/dL (0.2-1.0); CREATININE 0.8 mg/dL (0.6-1.2); POTASSIUM 3.6 mmol/L (3.5-5.0)
[2020-07-23 20:59] LABS: BILIRUBIN,URINE NEGATIVE (NEGATIVE); GLUCOSE, URINE (UA) NEGATIVE (NEGATIVE); KETONES,URINE (UA) NEGATIVE (NEGATIVE); LEUKOCYTE ESTERASE, URINE MODERATE (NEGATIVE); NITRITE,URINE NEGATIVE (NEGATIVE); OCCULT BLOOD,URINE TRACE-INTA (NEGATIVE); PH,URINE 6.5 PH (5.0-7.5); PROTEIN,URINE NEGATIVE (NEGATIVE); UROBILINOGEN,URINE 0.2 (NORMAL) E.U./dL (NORMAL)
[2020-07-23 21:00] LABS: CLARITY,URINE CLEAR (CLEAR)
[2020-07-23 21:02] LABS: BACTERIA,URINE Rare /HPF (None Seen); MUCUS,URINE Few Strands; RBC,URINE 0-5 /HPF (0-5); SQUAMOUS EPITHELIAL CELL,UR FEW Squamous (<= Few)
--- NOTE | 2020-07-23 21:07 | XRAY Report ---
PROCEDURE: Chest 1 View X-Ray INDICATIONS: chest pain TECHNIQUE: One view of the chest was acquired. COMPARISON: 11/02/2019. FINDINGS: Surgical changes and devices: None. Lungs and pleura: No pleural effusions or pneumothorax. Lungs are clear. Mediastinum: Mediastinal contours appear normal. Heart size is normal. Bones and chest wall: No suspicious bony lesions. Overlying soft tissues appear unremarkable. IMPRESSION: No acute cardiopulmonary disease process. Reviewed by: Deana Villavicencio MD, PhD on 07/23/2020 9:06 PM PDT Approved by: Deana Villavicencio MD, PhD on 07/23/2020 9:06 PM PDT Station ID: [id number]
[2020-07-23 22:03] VITALS: BP 129/84
== END 2020-07-23 22:08 | disposition home or self-care (01) ==
LOC: ED 20:01
DX: R10.13 Epigastric pain (principal); R11.2 Nausea with vomiting, unspecified; R05 Cough; Z90.49 Acquired absence of other specified parts of digestive tract; F17.200 Nicotine dependence, unspecified, uncomplicated
CPT/HCPCS: 36415; 71045; 80053; 81001; 83690; 84484; 85025; 87086; 93005; 96374; 96375; 99284; A9270; 81003

== ENCOUNTER 2021-03-24 14:47 | Emergency (ER) | payer OTHER ==
[2021-03-24 16:14] LABS: BASOPHILS # (AUTO) 0.1 10^3/uL (0.0-0.1); BASOPHILS % (AUTO) 0.8 %; EOSINOPHILS # (AUTO) 0.2 10^3/uL (0.0-0.7); EOSINOPHILS % (AUTO) 2.2 %; HCT - HEMATOCRIT 37.1 % (42.0-52.0); HGB - HEMOGLOBIN 12.8 g/dL (14.0-18.0); LYMPHOCYTES # (AUTO) 2.1 10^3/uL (1.5-3.5); LYMPHOCYTES % (AUTO) 18.9 %; MEAN CORPUSCULAR HEMOGLOBIN 31.1 pg (27.0-31.0); MEAN CORPUSCULAR HGB CONC 34.5 g/dL (32.0-36.0); MEAN PLATELET VOLUME 9.6 fL (7.4-11.4); MONOCYTES # (AUTO) 0.9 10^3/uL (0.0-1.0); MONOCYTES % (AUTO) 7.7 %; NEUTROPHILS # (AUTO) 7.8 10^3/uL (1.5-6.6); NEUTROPHILS % (AUTO) 69.8 %; PLT - PLATELET COUNT 235 10^3/uL (130-450); RED BLOOD COUNT 4.12 10^6/uL (4.70-6.10); RED CELL DISTRIBUTION WIDTH 13.8 % (12.0-15.0); WHITE BLOOD COUNT 11.1 x10^3/uL (4.8-10.8)
--- NOTE | 2021-03-24 16:23 | XRAY Report ---
PROCEDURE: Chest 1 View X-Ray INDICATIONS: Chest Pain TECHNIQUE: One view of the chest was acquired. COMPARISON: 07/23/2020 FINDINGS: Surgical changes and devices: None. Lungs and pleura: No pleural effusions or pneumothorax. Lungs are clear. Mediastinum: Mediastinal contours appear normal. Heart size is normal. Bones and chest wall: No suspicious bony lesions. Overlying soft tissues appear unremarkable. IMPRESSION: No acute cardiopulmonary process demonstrated radiographically. Reviewed by: Saulo Anders MD on 03/24/2021 4:22 PM [facility] Approved by: Saulo Anders MD on 03/24/2021 4:22 PM [facility] Station ID: [id number]
--- NOTE | 2021-03-24 16:25 | ED Physician Documentation ---
History of Present Illness - Stated complaint Stated Complaint: high bp,nausea,weak - Chief complaint Chief Complaint: Cardiac - Additonal information Additional information: 65-year-old male presents to the emergency department for evaluation of headache and elevated blood pressure. He reports that over the last 3 days he has been checking his blood pressures at home and noticed that they have approached 220 systolic. He has no chest pain or shortness of air. He states that the headache is new for him. Not sudden onset. Some nausea no vomiting. Patient is a heavy tobacco user. He typically smokes 1 pack/day. He however has never been treated for hypertension. He is currently undergo testing for urinary frequency. He is going to see a urologist in a few days for evaluation of what they suspect to be BPH. Review of Systems Constitutional: denies: Fever, Chills Eyes: reports: Reviewed and negative Ears: reports: Reviewed and negative Nose: reports: Reviewed and negative Throat: reports: Reviewed and negative Cardiac: reports: Reviewed and negative Respiratory: reports: Reviewed and negative GI: reports: Nausea. denies: Vomiting, Constipation, Diarrhea : reports: Frequency, Hesitancy. denies: Dysuria Skin: reports: Reviewed and negative Musculoskeletal: reports: Reviewed and negative Neurologic: reports: Headache PD PAST MEDICAL HISTORY - Past Medical History Cardiovascular: None Respiratory: None Neuro: None Endocrine/Autoimmune: None GI: Cholelithiasis : Benign prostate hypertrophy, Frequency HEENT: Chronic vision loss Psych: None Musculoskeletal: Osteoarthritis, Other Derm: None - Past Surgical History Past Surgical History: Yes General: Cholecystectomy, Colonoscopy - Present Medications Home Medications: Ambulatory Orders Medication Instructions Recorded Confirmed Pantoprazole [Protonix] 40 mg PO DAILY #30 tablet 07/23/20 03/24/21 Tamsulosin [Flomax] 0.4 mg PO DAILY 03/24/21 03/24/21 - Allergies Allergies/Adverse Reactions: Allergies Allergy/AdvReac Type Severity Reaction Status Date / Time Opioids - Morphine Analogues AdvReac Intermediate Nausea Verified 03/24/21 14:51 - Social History Does the pt smoke?: Yes Smoking Status: Current every day smoker Does the pt drink ETOH?: No Does the pt have substance abuse?: No - Immunizations Immunizations are current?: Yes Immunizations: TDAP >10years/unknown - POLST Patient has POLST: No PD ED PE NORMAL - General General: Alert and oriented X 3 - HEENT HEENT: PERRL - Neck Neck: Supple, no meningeal sign - Cardiac Cardiac: RRR, No murmur - Respiratory Respiratory: Clear bilaterally - Abdomen Abdomen: Normal bowel sounds, Soft, Non tender, Non distended - Back Back: No CVA TTP, No spinal TTP - Derm Derm: Normal color, Warm and dry, No rash - Extremities Extremities: No deformity, No tenderness to palpate, Normal ROM s pain, No edema - Neuro Neuro: Alert and oriented X 3 Eye Opening: Spontaneous Motor: Obeys Commands Verbal: Oriented GCS Score: 15 Results - Vitals Vitals: Vital Signs - 24 hr 03/24/21 03/24/21 03/24/21 14:51 16:14 18:00 Temperature 36.5 C 36.7 C Heart Rate 71 83 64 Respiratory 16 18 18 Rate Blood Pressure 186/92 H 197/102 H 156/82 H O2 Saturation 96 100 99 03/24/21 20:00 Temperature 36.7 C Heart Rate 69 Respiratory 12 Rate Blood Pressure 164/89 H O2 Saturation 100 Oxygen O2 Source Room air - EKG (time done) 1603 Rate: Rate (enter#) (67) Rhythm: NSR Gary: Normal Intervals: RBBB QRS: Normal Ischemia: Normal ST segments Compare to prior EKG: Changed from prior EKG Computer interpretation: Agree with computer - Labs Labs: Laboratory Tests 03/24/21 03/24/21 03/24/21 16:01 16:01 16:01 WBC 11.1 H RBC 4.12 L Hgb 12.8 L Hct 37.1 L MCV 90.0 MCH 31.1 H MCHC 34.5 RDW 13.8 Plt Count 235 MPV 9.6 Neut # (Auto) 7.8 H Lymph # (Auto) 2.1 [place] # (Auto) 0.9 Eos # (Auto) 0.2 Baso # (Auto) 0.1 Absolute Nucleated RBC 0.00 Nucleated RBC % 0.0 PT 13.1 H INR 1.2 Sodium 143 Potassium 3.2 L Chloride 100 L Carbon Dioxide 32 Anion Gap 11.0 BUN 22 H Creatinine 2.3 H Estimated GFR (MDRD) 29 L Glucose 86 Calcium 9.1 Total Bilirubin 0.5 AST 21 ALT 19 Alkaline Phosphatase 89 Troponin I High Sens Total Protein 7.2 Albumin 3.3 Globulin 3.9 Albumin/Globulin Ratio 0.8 L Lipase 22 03/24/21 03/24/21 16:01 20:01 WBC RBC Hgb Hct MCV MCH MCHC RDW Plt Count MPV Neut # (Auto) Lymph # (Auto) [place] # (Auto) Eos # (Auto) Baso # (Auto) Absolute Nucleated RBC Nucleated RBC % PT INR Sodium 144 Potassium 3.1 L Chloride 105 Carbon Dioxide 27 Anion Gap 12.0 BUN 21 H Creatinine 2.0 H Estimated GFR (MDRD) 34 L Glucose 98 Calcium 8.8 Total Bilirubin AST ALT Alkaline Phosphatase Troponin I High Sens 9.9 Total Protein Albumin Globulin Albumin/Globulin Ratio Lipase - Rads (name of study) cxr Radiology: Final report received (no acute cardiopulmonary process) CT abd wo Radiology: Final report received (Adderall hydronephrosis/hydroureter likely secondary to prostatomegaly) PD MEDICAL DECISION MAKING - ED course Complexity details: reviewed results, re-evaluated patient, considered differential, d/w patient, d/w family ED course: 65-year-old male presents the emergency department for concerns of hypertension. Over the last 3 days he has been checking his blood pressure and noticed that it is greater than 200 at home. He does not have a previous history of hypertension. He does however smoke a pack per day of tobacco. Screening EKG shows a new right bundle branch block compared to July of this year. However his chest x-ray and troponin were negative. Patient had no shortness of air or chest pain. Patient had reported that he was having difficulty voiding and having to go frequently. We did do a bladder scan at the bedside and found that there were [address] imaging of the belly showed a markedly distended bladder as well as very significant prostate enlargement. He had developed bilateral hydroureter and hydronephrosis. A Whitman catheter was placed in 2 L of urine immediately drained. Bladder outlet obstruction is likely the cause of his acute kidney injury. The patient was given a liter of fluid here in the emergency department and repeat BUN and creatinine about 2 hours after Whitman catheter placement showed that the creatinine had improved from 2.3-2.0. I expect over the next few days with adequate drainage of his bladder that his kidney function will improve. I have asked him to have screening labs obtained through his primary doctor on Saturday or Saturday. This gentleman does have an appointment with his urologist on the to discussed his prostate enlargement. Over the weekend he will keep the Whitman catheter/leg bag in place. No prescription was sent today for the elevated blood pressure which I suspect is secondary to pain and bladder outlet obstruction. Emergent return precautions were discussed for worsening symptoms. Departure - Departure Disposition: Home, Self Care Clinical Impression: Bladder outlet obstruction, BEULAH (acute kidney injury), Hydronephrosis, bilateral, Right bundle branch block (RBBB), Elevated blood pressure reading Condition: Stable Record reviewed to determine appropriate education?: Yes Instructions: ED Catheter Care Whitman, Leg Bag Care Dc Follow-Up: DEBORAH TABOR MD [Primary Care Provider] - Comments: Femi you were seen in the ER because you were concerned about your elevated blood pressure. In the emergency department we determined that you were not able to fully empty your bladder Because your prostate is significantly enlarged. This has caused urine to back up in your bladder and cause swelling of the ureters and kidneys. The swelling is enough that it has caused your kidney function to be decreased a little bit. We have placed an indwelling Whitman catheter. I would expect that by being able to continuously drain your urine that your kidney function begins to improve over the weekend. You should have your kidney function rechecked through your primary care doctor or your urologist as soon as possible. Your Whitman should remain in place until you see your urologist. Your EKG today show that you have a right bundle branch block. This is something that should be discussed with a filter washer and presser. However your chest x- ray was normal and your heart labs were also normal. Your blood pressure was probably very elevated because your bladder was so swollen. I would expect that now that were draining the urine that your blood pressure is improving over the next few days. If you have systolic blood pressures greater than 200 then please return to the ER for a second evaluation.
[2021-03-24 16:26] LABS: ALBUMIN 3.3 g/dL (3.2-5.5); ALBUMIN/GLOBULIN RATIO 0.8 (1.0-2.2); BILIRUBIN,TOTAL 0.5 mg/dL (0.2-1.0); CALCIUM 9.1 mg/dL (8.5-10.3); CREATININE 2.3 mg/dL (0.6-1.2); INR 1.2 (0.8-1.2); POTASSIUM 3.2 mmol/L (3.5-5.0); PT - PROTHROMBIN TIME 13.1 secs (9.9-12.6); TOTAL PROTEIN 7.2 g/dL (6.7-8.2)
[2021-03-24] MEDS ORDERED: lisinopriL 5 MG TABLET PO STA (16:33)
[2021-03-24] MEDS ORDERED: ONDANSETRON 4 MG/2 ML VIAL IVP STA (16:33)
[2021-03-24] MEDS ORDERED: SODIUM CHLORIDE 0.9% 1,000 ML IV STA (16:49)
--- NOTE | 2021-03-24 17:55 | CT Report ---
PROCEDURE: Abdomen/Pelvis WO INDICATIONS: lower abdominal pain TECHNIQUE: Noncontrast 5 mm thick sections acquired from the diaphragms to the symphysis. 5 mm coronal and sagi ttal reformats were then performed. For radiation dose reduction, the following was used: automated exposure control, adjustment of mA and/or kV according to patient size. COMPARISON: March 18, 2018. FINDINGS: Inferior chest: No focal consolidation, pleural effusion, or pneumothorax. 1 cm noncalcified nodule in the right lower lobe. No cardiomegaly or pericardial effusion. Gallbladder: Cholecystectomy. Biliary tree: No intrahepatic biliary ductal dilatation. Liver: A few scattered hypoattenuating lesions are seen measuring up to 9 mm, which may reflect cysts . Normal contour. Spleen: Normal size and morphology is seen. Pancreas: Normal morphology without masses or inflammatory changes. Adrenals: Normal size without masses. Kidneys: Moderate bilateral hydronephrosis with perinephric stranding. Bilateral hydroureter is also seen. Cortical hypoattenuating lesions are seen measuring up to 2.9 cm, most consistent with cysts. Vasculature: No evidence of aneurysm or other significant vascular pathology. Lymphatic system: No pathologic enlargement by size criteria. Bowel: No intestinal obstruction. Normal appendix. Peritoneum/Retroperitoneum: No free intraperitoneal gas or large collection. Urinary bladder: Trabeculation of urinary bladder. Pelvic organs: Marked enlargement of the prostate measuring up to 7.7 cm. Bones/soft tissues: No significant abnormality. 3.2 x 5.2 cm fat attenuation lesion in the left glute us medius, compatible with intramuscular lipoma. IMPRESSION: 1.Moderate bilateral hydronephrosis/hydroureter, likely secondary to prostatomegaly. Reviewed by: Pb Francisco MD on 03/24/2021 5:53 PM PST Approved by: Pb Francisco MD on 03/24/2021 5:53 PM PST Station ID: [id number]
[2021-03-24] MEDS ORDERED: LIDOCAINE 2% URO-JET 5 ML SYRINGE UR STA (17:57)
[2021-03-24 20:17] LABS: CALCIUM 8.8 mg/dL (8.5-10.3); POTASSIUM 3.1 mmol/L (3.5-5.0)
[2021-03-24 20:58] VITALS: BP 172/93
== END 2021-03-24 20:59 | disposition home or self-care (01) ==
LOC: ED 14:47
DX: N32.0 Bladder-neck obstruction (principal); N17.9 Acute kidney failure, unspecified; N13.30 Unspecified hydronephrosis; R03.0 Elevated blood-pressure reading, without diagnosis of hypertension; N40.1 Benign prostatic hyperplasia with lower urinary tract symptoms; R35.0 Frequency of micturition; R39.198 Other difficulties with micturition; I45.10 Unspecified right bundle-branch block; Z96.0 Presence of urogenital implants; Z72.0 Tobacco use
CPT/HCPCS: 36415; 51702; 71045; 74176; 80048; 80053; 83690; 84484; 85025; 85610; 93005; 96374; 99284; A9270

== ENCOUNTER 2021-03-26 17:19 | Emergency (ER) | payer OTHER ==
--- NOTE | 2021-03-26 17:48 | ED Physician Documentation ---
History of Present Illness - Stated complaint Stated Complaint: ABD PX/PEEING BLOOD - Chief complaint Chief Complaint: Abd Pain - Additonal information Additional information: 65-year-old male return to the emergency department for evaluation of lower abdominal pain and hematuria. I saw this gentleman a few days ago which she presented for concerns of elevated blood pressure. The work-up at that time showed some mild acute kidney injury and a CT of the abdomen showed markedly enlarged prostate with significant bladder distention. Whitman catheter was placed and immediately 2 L of fluid drained. Patient reported that he had been managing his Whitman catheter at home well until this afternoon when he felt that the output was more bloody than normal and he feels like is not putting out enough. He is beginning to have distention in his abdomen. No fevers or vomiting. This gentleman is scheduled to see a urologist on the . Review of Systems Constitutional: reports: Reviewed and negative Nose: reports: Reviewed and negative Throat: reports: Reviewed and negative Cardiac: reports: Reviewed and negative Respiratory: reports: Dyspnea GI: reports: Abdominal Pain, Abdominal Swelling : reports: Unable to Void (Indwelling Whitman catheter/leg bag), Hematuria Skin: denies: Rash, Lesions Musculoskeletal: reports: Reviewed and negative Neurologic: reports: Reviewed and negative PD PAST MEDICAL HISTORY - Past Medical History Cardiovascular: None Respiratory: None Neuro: None Endocrine/Autoimmune: None GI: Cholelithiasis : Benign prostate hypertrophy, Frequency HEENT: Chronic vision loss Psych: None Musculoskeletal: Osteoarthritis, Other Derm: None - Past Surgical History Past Surgical History: Yes General: Cholecystectomy, Colonoscopy - Present Medications Home Medications: Ambulatory Orders Medication Instructions Recorded Confirmed Pantoprazole [Protonix] 40 mg PO DAILY #30 tablet 07/23/20 03/24/21 Tamsulosin [Flomax] 0.4 mg PO DAILY 03/24/21 03/24/21 Cefpodoxime Proxetil [Vantin] 200 mg PO Q12H #28 tablet 03/26/21 - Allergies Allergies/Adverse Reactions: Allergies Allergy/AdvReac Type Severity Reaction Status Date / Time Opioids - Morphine Analogues AdvReac Intermediate Nausea Verified 03/24/21 14:51 - Social History Does the pt smoke?: Yes Smoking Status: Current every day smoker Does the pt drink ETOH?: No Does the pt have substance abuse?: No - Immunizations Immunizations are current?: Yes Immunizations: TDAP >10years/unknown - POLST Patient has POLST: No PD ED PE NORMAL - General General: Alert and oriented X 3, No acute distress - HEENT HEENT: PERRL - Neck Neck: Supple, no meningeal sign - Cardiac Cardiac: RRR, No murmur - Respiratory Respiratory: No respiratory distress, Clear bilaterally - Abdomen Abdomen: Normal bowel sounds, Soft. No: Non tender (Tenderness but the suprap ubic area with some mild distention.) - Male Male : Other (Indwelling Whitman catheter is connected to a leg bag. There appears to be blood-tinged urine in the bag but seems to be draining freely) Results - Vitals Vitals: Vital Signs - 24 hr 03/26/21 03/26/21 17:31 17:38 Temperature 36.5 C 36.5 C Heart Rate 100 100 Respiratory 16 16 Rate Blood Pressure 180/80 H 180/80 H O2 Saturation 99 99 Oxygen O2 Source Room air - Labs Labs: Laboratory Tests 03/26/21 03/26/21 03/26/21 17:50 17:59 17:59 WBC 15.3 H RBC 4.16 L Hgb 12.7 L Hct 37.0 L MCV 88.9 MCH 30.5 MCHC 34.3 RDW 13.9 Plt Count 254 MPV 10.2 Neut # (Auto) 11.4 H Lymph # (Auto) 2.2 [place] # (Auto) 1.1 H Eos # (Auto) 0.4 Baso # (Auto) 0.1 Absolute Nucleated RBC 0.00 Nucleated RBC % 0.0 Sodium 137 Potassium 2.6 L Chloride 97 L Carbon Dioxide 30 Anion Gap 10.0 BUN 16 Creatinine 1.7 H Estimated GFR (MDRD) 41 L Glucose 130 H Calcium 8.6 Total Bilirubin 0.2 AST 17 ALT 18 Alkaline Phosphatase 75 Total Protein 6.6 L Albumin 3.0 L Globulin 3.6 Albumin/Globulin Ratio 0.8 L Lipase 17 L Urine Color ORANGE Urine Clarity CLOUDY Urine pH 7.5 Ur Specific [place] 1.020 Urine Protein >=300 H Urine Glucose (UA) NEGATIVE Urine Ketones NEGATIVE Urine Occult Blood LARGE H Urine Nitrite POSITIVE H Urine Bilirubin NEGATIVE Urine Urobilinogen 0.2 (NORMAL) Ur Leukocyte Esterase SMALL H Urine RBC TNTC H Urine WBC 6-10 H Ur Squamous Epith Cells NONE SEEN Urine Bacteria Moderate H Ur Microscopic Review INDICATED Urine Culture Comments INDICATED PD MEDICAL DECISION MAKING - ED course Complexity details: reviewed old records, reviewed results, re-evaluated patient, considered differential, d/w patient ED course: 65-year-old male comes to the emergency department for evaluation that his Whitman catheter is not working well as he feels obstructed. He had a Whitman catheter placed just a few days ago in this ER for significant prostate hypertrophy causing urinary outlet obstruction as well as bilateral hydronephrosis. At that time he did have some moderate acute kidney injury though did appear to be downtrending by the time he is discharged from the ER. He had been doing well until this afternoon when he began noticing more blood in his Whitman and feeling like it was not draining though adequate volume of urine was coming into the bag. Screening labs today do show moderate leukocytosis but he has no fevers. He had minimal abdominal pain. His renal function though still abnormal is markedly improved from the ED visit a few days ago. His creatinine is now 1.7. His urine however is frankly suggestive of infection. Patient was given a gram of ceftriaxone IV here in the ER and his Whitman catheter was then changed. Patient does have follow-up with his urologist scheduled for this week. Patient will be started On Cefpodoxime 200 mg twice daily for the next week. Otherwise emergent return precautions discussed. Departure - Departure Disposition: Home, Self Care Clinical Impression: Indwelling Whitman catheter present Acute cystitis Qualifiers: Hematuria presence: with hematuria Qualified Code(s): N30.01 - Acute cystitis with hematuria Condition: Stable Record reviewed to determine appropriate education?: Yes Prescriptions: Cefpodoxime Proxetil [Vantin] 200 mg PO Q12H #28 tablet Comments: Femi you were seen in the emergency department today for concerns that your Whitman catheter was not draining adequately as you felt fullness and pressure in your bladder. Your bladder volume was less than 200 mL. In addition to that the Whitman does appear to be draining normally. However analysis of your urine does show that you have an infection in the bladder. This can cause the feelings of discomfort and fullness. You were given a dose of antibiotic here in the emergency department and [place] Please continue your Whitman catheter care as previously discussed. I am printing out the CT results from your ED visit 2 days ago so that you can share them with your urologist when you see him this week. If at any point you feel that your symptoms are worsening, you develop fevers, have severe lower abdominal pain or vomiting then please return immediately to the ER for second evaluation.
[2021-03-26 18:06] LABS: BILIRUBIN,URINE NEGATIVE (NEGATIVE); GLUCOSE, URINE (UA) NEGATIVE (NEGATIVE); KETONES,URINE (UA) NEGATIVE (NEGATIVE); LEUKOCYTE ESTERASE, URINE SMALL (NEGATIVE); NITRITE,URINE POSITIVE (NEGATIVE); OCCULT BLOOD,URINE LARGE (NEGATIVE); PH,URINE 7.5 PH (5.0-7.5); PROTEIN,URINE >=300 mg/dL (NEGATIVE); UROBILINOGEN,URINE 0.2 (NORMAL) E.U./dL (NORMAL)
[2021-03-26 18:09] LABS: BASOPHILS # (AUTO) 0.1 10^3/uL (0.0-0.1); BASOPHILS % (AUTO) 0.7 %; EOSINOPHILS # (AUTO) 0.4 10^3/uL (0.0-0.7); EOSINOPHILS % (AUTO) 2.7 %; HGB - HEMOGLOBIN 12.7 g/dL (14.0-18.0); LYMPHOCYTES # (AUTO) 2.2 10^3/uL (1.5-3.5); LYMPHOCYTES % (AUTO) 14.2 %; MEAN CORPUSCULAR HEMOGLOBIN 30.5 pg (27.0-31.0); MEAN CORPUSCULAR HGB CONC 34.3 g/dL (32.0-36.0); MEAN CORPUSCULAR VOLUME 88.9 fL (80.0-94.0); MEAN PLATELET VOLUME 10.2 fL (7.4-11.4); MONOCYTES # (AUTO) 1.1 10^3/uL (0.0-1.0); MONOCYTES % (AUTO) 7.2 %; NEUTROPHILS # (AUTO) 11.4 10^3/uL (1.5-6.6); NEUTROPHILS % (AUTO) 74.5 %; PLT - PLATELET COUNT 254 10^3/uL (130-450); RED BLOOD COUNT 4.16 10^6/uL (4.70-6.10); RED CELL DISTRIBUTION WIDTH 13.9 % (12.0-15.0); WHITE BLOOD COUNT 15.3 x10^3/uL (4.8-10.8)
[2021-03-26 18:22] LABS: ALBUMIN/GLOBULIN RATIO 0.8 (1.0-2.2); BILIRUBIN,TOTAL 0.2 mg/dL (0.2-1.0); CALCIUM 8.6 mg/dL (8.5-10.3); CREATININE 1.7 mg/dL (0.6-1.2); POTASSIUM 2.6 mmol/L (3.5-5.0); TOTAL PROTEIN 6.6 g/dL (6.7-8.2)
[2021-03-26 18:22] LABS: CLARITY,URINE CLOUDY (CLEAR)
[2021-03-26 18:23] LABS: BACTERIA,URINE Moderate /HPF (None Seen); RBC,URINE TNTC /HPF (0-5); SQUAMOUS EPITHELIAL CELL,UR NONE SEEN (<= Few)
[2021-03-26] MEDS ORDERED: LIDOCAINE 1% 2 ML VIAL MC ONE (18:40)
[2021-03-26] MEDS ORDERED: cefTRIAXone 1 GM VIAL IM STA (18:40)
[2021-03-26 19:38] VITALS: BP 140/80
== END 2021-03-26 19:38 | disposition home or self-care (01) ==
LOC: ED 17:19
DX: N30.01 Acute cystitis with hematuria (principal); N40.1 Benign prostatic hyperplasia with lower urinary tract symptoms; N13.8 Other obstructive and reflux uropathy; F17.200 Nicotine dependence, unspecified, uncomplicated; Z96.0 Presence of urogenital implants
CPT/HCPCS: 36415; 51702; 80053; 81001; 81003; 83690; 85025; 87077; 87086; 87181; 99283; 99284

== ENCOUNTER 2021-04-17 01:36 | Emergency (ER) | payer OTHER ==
[2021-04-17] MEDS ORDERED: MORPHINE 2 MG/ML CARPUJECT IVP STA (01:50)
[2021-04-17] MEDS ORDERED: ONDANSETRON 4 MG/2 ML VIAL IVP STA (01:50)
[2021-04-17] MEDS ORDERED: SODIUM CHLORIDE 0.9% 1,000 ML IV STA (01:50)
[2021-04-17 02:07] LABS: BASOPHILS % (AUTO) 0.3 %; EOSINOPHILS % (AUTO) 0.3 %; HCT - HEMATOCRIT 44.8 % (42.0-52.0); HGB - HEMOGLOBIN 15.1 g/dL (14.0-18.0); LYMPHOCYTES # (AUTO) 1.9 10^3/uL (1.5-3.5); LYMPHOCYTES % (AUTO) 17.9 %; MEAN CORPUSCULAR HEMOGLOBIN 30.4 pg (27.0-31.0); MEAN CORPUSCULAR HGB CONC 33.7 g/dL (32.0-36.0); MEAN CORPUSCULAR VOLUME 90.1 fL (80.0-94.0); MONOCYTES # (AUTO) 0.8 10^3/uL (0.0-1.0); MONOCYTES % (AUTO) 7.6 %; NEUTROPHILS # (AUTO) 7.9 10^3/uL (1.5-6.6); NEUTROPHILS % (AUTO) 73.4 %; PLT - PLATELET COUNT 276 10^3/uL (130-450); RED BLOOD COUNT 4.97 10^6/uL (4.70-6.10); WHITE BLOOD COUNT 10.7 x10^3/uL (4.8-10.8)
[2021-04-17] MEDS ORDERED: iohexoL-300 100 ML VIAL ONE (02:13)
[2021-04-17 02:20] LABS: ALBUMIN 3.6 g/dL (3.2-5.5); ALBUMIN/GLOBULIN RATIO 0.8 (1.0-2.2); BILIRUBIN,TOTAL 0.7 mg/dL (0.2-1.0); CALCIUM 9.2 mg/dL (8.5-10.3); CREATININE 1.2 mg/dL (0.6-1.2); POTASSIUM 3.7 mmol/L (3.5-5.0)
[2021-04-17 02:39] LABS: BILIRUBIN,URINE NEGATIVE (NEGATIVE); GLUCOSE, URINE (UA) NEGATIVE (NEGATIVE); KETONES,URINE (UA) NEGATIVE (NEGATIVE); LEUKOCYTE ESTERASE, URINE SMALL (NEGATIVE); NITRITE,URINE NEGATIVE (NEGATIVE); OCCULT BLOOD,URINE LARGE (NEGATIVE); PROTEIN,URINE 30 mg/dL (NEGATIVE); UROBILINOGEN,URINE 0.2 (NORMAL) E.U./dL (NORMAL)
[2021-04-17 02:43] LABS: CLARITY,URINE HAZY (CLEAR)
[2021-04-17 02:46] LABS: BACTERIA,URINE Few /HPF (None Seen); RBC,URINE TNTC /HPF (0-5); SQUAMOUS EPITHELIAL CELL,UR NONE SEEN (<= Few)
[2021-04-17] MEDS ORDERED: iohexoL-300 100 ML VIAL IVP ONE (03:38)
[2021-04-17 03:39] LABS: CORONAVIRUS 229E-RESP PCR NOT DETECTED; CORONAVIRUS HKU1-RESP PCR NOT DETECTED; CORONAVIRUS NL63-RESP PCR NOT DETECTED; CORONAVIRUS OC43-RESP PCR NOT DETECTED
[2021-04-17 03:40] LABS: B. PARAPERTUSSIS- RESP PCR PAN NOT DETECTED; B. PERTUSSIS- RESP PCR PANEL NOT DETECTED; C. PNEUMONIAE- RESP PCR PANEL NOT DETECTED; HUMAN METAPNEUMOVIRUS NOT DETECTED; INFLUENZA A- RESP PCR PANEL NOT DETECTED; INFLUENZA B - RESP PCR PANEL NOT DETECTED; M. PNEUMONIAE- RESP PCR PANEL NOT DETECTED; PARAINFLUENZA VIRUS 1 NOT DETECTED; PARAINFLUENZA VIRUS 2 NOT DETECTED; PARAINFLUENZA VIRUS 3 NOT DETECTED; PARAINFLUENZA VIRUS 4 NOT DETECTED; RHINOVIRUS/ENTEROVIRUS NOT DETECTED; RSV- RESP PCR PANEL NOT DETECTED; SARS-CoV-2 -RESP PCR PANEL DETECTED
[2021-04-17] MEDS ORDERED: LORazepam 2 MG/ML VIAL IVP STA (04:41)
--- NOTE | 2021-04-17 04:52 | ED Physician Documentation ---
History of Present Illness - Stated complaint Stated Complaint: ABX PX,HEADACHE,DIZZY,VOMITING,CHILLS - Chief complaint Chief Complaint: Neuro - Additonal information Additional information: Patient is a 65-year-old male presenting to the emergency department with 3-day history nausea, vomiting, hiccups, headache. Past medical significant for chronic urine retention for which she has a chronic indwelling Whitman catheter. No known sick contacts. Reports decreased p.o. intake secondary to nausea and vomiting. Reports took the Mik's and Mik's vaccine earlier last year. Review of Systems Constitutional: reports: Fever, Chills, Fatigue Eyes: denies: Loss of vision Ears: denies: Loss of hearing Nose: reports: Rhinorrhea / runny nose GI: reports: Nausea, Vomiting : reports: Unable to Void (Chronic) Musculoskeletal: denies: Neck pain Neurologic: denies: Generalized weakness PD PAST MEDICAL HISTORY - Past Medical History Past Medical History: Yes Cardiovascular: None Respiratory: None Neuro: None Endocrine/Autoimmune: None GI: Cholelithiasis : Benign prostate hypertrophy, Frequency HEENT: Chronic vision loss Psych: None Musculoskeletal: Osteoarthritis, Other Derm: None - Past Surgical History Past Surgical History: Yes General: Cholecystectomy, Colonoscopy - Present Medications Home Medications: Ambulatory Orders Medication Instructions Recorded Confirmed Pantoprazole [Protonix] 40 mg PO DAILY #30 tablet 07/23/20 04/17/21 Tamsulosin [Flomax] 0.4 mg PO DAILY 03/24/21 04/17/21 Omeprazole 40 mg PO DAILY #30 cap 04/17/21 Ondansetron Odt [Zofran Odt] 4 mg TL Q6H PRN #10 tablet 04/17/21 - Allergies Allergies/Adverse Reactions: Allergies Allergy/AdvReac Type Severity Reaction Status Date / Time Opioids - Morphine Analogues AdvReac Intermediate Nausea Verified 04/17/21 01:46 - Social History Does the pt smoke?: Yes Smoking Status: Current every day smoker Does the pt drink ETOH?: No Does the pt have substance abuse?: No - Immunizations Immunizations are current?: Yes Immunizations: TDAP >10years/unknown - POLST Patient has POLST: No PD ED PE NORMAL - Vitals Vital signs reviewed: Yes - General General: Alert and oriented X 3 - HEENT HEENT: Atraumatic - Neck Neck: Supple, no meningeal sign - Cardiac Cardiac: RRR, No gallop, Strong equal pulses - Respiratory Respiratory: No respiratory distress - Abdomen Abdomen: Normal bowel sounds, Non tender - Male Male : Deferred - Rectal Rectal: Deferred - Derm Derm: Normal color - Extremities Extremities: No deformity - Neuro Neuro: Alert and oriented X 3 Results - Vitals Vitals: Vital Signs - 24 hr 04/17/21 04/17/21 04/17/21 01:40 02:54 03:12 Temperature 36.7 C Heart Rate 100 84 80 Respiratory 18 16 16 Rate Blood Pressure 135/84 H 135/87 H 149/82 H O2 Saturation 100 97 95 04/17/21 04:28 Temperature 36.2 C L Heart Rate 90 Respiratory 16 Rate Blood Pressure 151/88 H O2 Saturation 99 Oxygen O2 Source Room air - EKG (time done) 0303 Rate: Rate (enter#) (86) Rhythm: NSR [place]: Normal Intervals: Normal SC, Prolonged QT QRS: Normal Ischemia: Normal ST segments Other comments: Other comments (Significant motion artifact.) - Labs Labs: Laboratory Tests 04/17/21 04/17/21 04/17/21 02:00 02:00 02:00 WBC 10.7 RBC 4.97 Hgb 15.1 Hct 44.8 MCV 90.1 MCH 30.4 MCHC 33.7 RDW 14.0 Plt Count 276 MPV 10.0 Neut # (Auto) 7.9 H Lymph # (Auto) 1.9 [place] # (Auto) 0.8 Eos # (Auto) 0.0 Baso # (Auto) 0.0 Absolute Nucleated RBC 0.00 Nucleated RBC % 0.0 Sodium 140 Potassium 3.7 Chloride 99 L Carbon Dioxide 26 Anion Gap 15.0 H BUN 19 Creatinine 1.2 Estimated GFR (MDRD) 61 L Glucose 138 H Lactic Acid 3.3 H* Calcium 9.2 Total Bilirubin 0.7 AST 41 ALT 35 Alkaline Phosphatase 91 Total Protein 8.0 Albumin 3.6 Globulin 4.4 H Albumin/Globulin Ratio 0.8 L Lipase 25 Urine Color Urine Clarity Urine pH Ur Specific [place] Urine Protein Urine Glucose (UA) Urine Ketones Urine Occult Blood Urine Nitrite Urine Bilirubin Urine Urobilinogen Ur Leukocyte Esterase Urine RBC Urine WBC Ur Squamous Epith Cells Urine Bacteria Ur Microscopic Review Urine Culture Comments Nasal Adenovirus (PCR) Nasal B. parapertussis DNA (PCR) Nasal Coronavir 229E PCR Nasal Coronavir HKU1 PCR Nasal Coronavir NL63 PCR Nasal Coronavir OC43 PCR Nasal Enterovir/Rhinovir PCR Nasal Influenza B PCR Nasal Influenza A PCR Nasal Parainfluen 1 PCR Nasal Parainfluen 2 PCR Nasal Parainfluen 3 PCR Nasal Parainfluen 4 PCR Nasal RSV (PCR) Nasal B.pertussis DNA PCR Nasal C.pneumoniae (PCR) Avi Human Metapneumo PCR Nasal M.pneumoniae (PCR) Nasal SARS-CoV-2 (PCR) 04/17/21 04/17/21 02:30 02:30 WBC RBC Hgb Hct MCV MCH MCHC RDW Plt Count MPV Neut # (Auto) Lymph # (Auto) [place] # (Auto) Eos # (Auto) Baso # (Auto) Absolute Nucleated RBC Nucleated RBC % Sodium Potassium Chloride Carbon Dioxide Anion Gap BUN Creatinine Estimated GFR (MDRD) Glucose Lactic Acid Calcium Total Bilirubin AST ALT Alkaline Phosphatase Total Protein Albumin Globulin Albumin/Globulin Ratio Lipase Urine Color YELLOW Urine Clarity HAZY Urine pH 6.0 Ur Specific [place] 1.020 Urine Protein 30 H Urine Glucose (UA) NEGATIVE Urine Ketones NEGATIVE Urine Occult Blood LARGE H Urine Nitrite NEGATIVE Urine Bilirubin NEGATIVE Urine Urobilinogen 0.2 (NORMAL) Ur Leukocyte Esterase SMALL H Urine RBC TNTC H Urine WBC 6-10 H Ur Squamous Epith Cells NONE SEEN Urine Bacteria Few Ur Microscopic Review INDICATED Urine Culture Comments INDICATED Nasal Adenovirus (PCR) NOT DETECTED Nasal B. parapertussis DNA (PCR) NOT DETECTED Nasal Coronavir 229E PCR NOT DETECTED Nasal Coronavir HKU1 PCR NOT DETECTED Nasal Coronavir NL63 PCR NOT DETECTED Nasal Coronavir OC43 PCR NOT DETECTED Nasal Enterovir/Rhinovir PCR NOT DETECTED Nasal Influenza B PCR NOT DETECTED Nasal Influenza A PCR NOT DETECTED Nasal Parainfluen 1 PCR NOT DETECTED Nasal Parainfluen 2 PCR NOT DETECTED Nasal Parainfluen 3 PCR NOT DETECTED Nasal Parainfluen 4 PCR NOT DETECTED Nasal RSV (PCR) NOT DETECTED Nasal B.pertussis DNA PCR NOT DETECTED Nasal C.pneumoniae (PCR) NOT DETECTED Avi Human Metapneumo PCR NOT DETECTED Nasal M.pneumoniae (PCR) NOT DETECTED Nasal SARS-CoV-2 (PCR) DETECTED A PD MEDICAL DECISION MAKING - ED course Complexity details: reviewed results, re-evaluated patient, d/w patient ED course: Patient is 65-year-old male with past medical significant for chronic urinary retention for which she has a indwelling Whitman catheter who presents with 3-day history nausea, vomiting, hiccups, myalgias. COVID positive in the department. Chest x-ray nonacute. CT abdomen pelvis generally nonacute. Labs obtained were within normal limits are generally nonactionable. He was given IV hydration, medication for pain and nausea. Reported feeling significantly better. His hiccups were persistent however they were significantly or proved after medication. At this time I will discharge him for follow-up with his primary care doctor. Otherwise clear return precautions and follow-up instructions were given prior to discharge. Departure - Departure Disposition: Home, Self Care Clinical Impression: COVID-19, Nausea, Intractable hiccups Instructions: COVID-[address] [facility] Department Statement, COVID- 19 [facility] Prescriptions: Omeprazole 40 mg PO DAILY #30 cap Ondansetron Odt [Zofran Odt] 4 mg TL Q6H PRN #10 tablet PRN Reason: Nausea / Vomiting Comments: Thank you for allowing us to care for you today at [facility]. Prescriptions were sent electronically to [facility]. Today you were diagnosed with the novel coronavirus. It is important that you quarantine at home per current CDC guidelines. Please stay well-hydrated. I have sent some medications to your preferred pharmacyTo help with any ongoing nausea. Have also prescribed you a proton pump inhibitor, medication that is known to help intractable hiccups. Please make an appointment for follow-up with your primary care doctor soon as possible. If it anytime you have any new or worsening symptoms please not hesitate to return.
[2021-04-17] MEDS ORDERED: ONDANSETRON ODT 4 MG Prepack 2 TL PRN (04:54)
[2021-04-17 05:30] VITALS: BP 133/83
--- NOTE | 2021-04-17 08:23 | XRAY Report ---
PROCEDURE: Chest 1 View X-Ray INDICATIONS: chest pain TECHNIQUE: One view of the chest was acquired. COMPARISON: Chest x-ray 03/24/2021 FINDINGS: Surgical changes and devices: None. Lungs and pleura: No pleural effusions or pneumothorax. Lungs are clear. Mediastinum: Mediastinal contours appear normal. Heart size is normal. Bones and chest wall: No suspicious bony lesions. Overlying soft tissues appear unremarkable. IMPRESSION: No acute pulmonary process. The above findings are concordant with preliminary report. Reviewed by: Nika Stone MD on 04/17/2021 8:22 AM [facility] Approved by: Nika Stone MD on 04/17/2021 8:22 AM [facility] Station ID: [id number]
--- NOTE | 2021-04-17 09:33 | CT Report ---
PROCEDURE: Abdomen/Pelvis W INDICATIONS: abd pain CONTRAST: IV CONTRAST: Isovue 300 ml: 100 PO CONTRAST: *NO PO CONTRAST TECHNIQUE: After the administration of IV contrast, 5 mm thick sections acquired from the diaphragms to the symp hysis. 5 mm thick coronal and sagittal reformats were acquired. For radiation dose reduction, the f ollowing was used: automated exposure control, adjustment of mA and/or kV according to patient size. COMPARISON: CT abdomen pelvis 03/24/2021 FINDINGS: Image quality: Mild motion is present within portions of the exam obscuring areas of fine detail eval uation. ABDOMEN: Lung bases: Lung bases are clear. Heart size is normal. Solid organs: Liver and spleen are normal in size. Unchanged low-attenuation focus is present within the hepatic dome. Gallbladder has been removed Biliary system is non dilated. Pancreas enhances n ormally. No adrenal nodules. Kidneys demonstrate normal size and enhancement. Simple bilateral alicia al cysts are present. Previous right hydronephrosis and hydroureter have resolved. There is questiona ble minimal residual left hydronephrosis and hydroureter. Peritoneum and bowel: Bowel loops demonstrate normal wall thickness and caliber. No free fluid or a ir. Nodes and vessels: No retroperitoneal or mesenteric adenopathy by size criteria. Aorta and inferior vena cava are normal in size. Miscellaneous: No ventral hernias. Prominent hiatal hernia. PELVIS: Genitourinary: Bladder wall demonstrates significant thickening. The lumen appears somewhat isodense Whitman catheter is present. Prostate gland is enlarged. Miscellaneous: No inguinal hernias or adenopathy. Left gluteus lipoma is unchanged. Bones: No suspicious bony lesions. No vertebral body compression fractures. IMPRESSION: 1. Markedly thickened bladder wall with isodense appearance of the lumen. Thickened wall could be sec ondary to infection/inflammation/chronic outlet obstruction versus incomplete distention given presen ce of Whitman catheter. Appearance of isodense fluid could represent incomplete distention. However, de bris of uncertain etiology within the bladder cannot be excluded. Prostate gland is enlarged. Recomme nd continued interval follow-up as well as correlation to laboratory values. 2. Questionable minimal residual appearance of previous marked left hydronephrosis and hydroureter. The above findings are concordant with preliminary report. Reviewed by: Nika Stone MD on 04/17/2021 9:32 AM PST Approved by: Nika Stone MD on 04/17/2021 9:32 AM PST Station ID: [id number]
--- NOTE | 2021-04-19 11:30 | ED Physician Documentation ---
ED Addendum - Addendum Addendum: 04/19/21 11:29 Chart reviewed, I thought long and hard about whether the positive urine culture should be treated as this patient has a chronic indwelling Whitman catheter and did not have urinary complaints per se, he did have a fever and a positive white count as well as a lactic acidosis though. His illness was chalked up to his positive COVID test, but given the circumstances there is really no way to say that he does not have a UTI as well and I asked the nurse to call the patient and call in a prescription for penicillin VK 500 mg 4 times a day for 10 days.
== END 2021-04-17 05:30 | disposition home or self-care (01) ==
LOC: ED 01:36
DX: U07.1 COVID-19 (principal); R33.9 Retention of urine, unspecified; R06.6 Hiccough; F17.200 Nicotine dependence, unspecified, uncomplicated; R42 Dizziness and giddiness; Z97.8 Presence of other specified devices; N39.0 Urinary tract infection, site not specified
CPT/HCPCS: 0202U; 36415; 71045; 74177; 80053; 81001; 83605; 83690; 85025; 87086; 93005; 96361; 96374; 96375; 99283; 99284; J2060; Q9967; 81003

== ENCOUNTER 2021-04-18 01:38 | Emergency (ER) | payer OTHER ==
[2021-04-18] MEDS ORDERED: DROPERIDOL 5 MG/2 ML VIAL IVP STA (01:51)
[2021-04-18] MEDS ORDERED: diphenhydrAMINE INJ 50 MG/ML VIAL IVP STA (01:51)
[2021-04-18] MEDS ORDERED: SODIUM CHLORIDE 0.9% 1,000 ML IV STA (01:51)
[2021-04-18 02:09] LABS: BASOPHILS % (AUTO) 0.2 %; EOSINOPHILS # (AUTO) 0.3 10^3/uL (0.0-0.7); EOSINOPHILS % (AUTO) 2.2 %; HCT - HEMATOCRIT 45.3 % (42.0-52.0); HGB - HEMOGLOBIN 15.3 g/dL (14.0-18.0); LYMPHOCYTES # (AUTO) 0.8 10^3/uL (1.5-3.5); LYMPHOCYTES % (AUTO) 6.4 %; MEAN CORPUSCULAR HEMOGLOBIN 30.3 pg (27.0-31.0); MEAN CORPUSCULAR HGB CONC 33.8 g/dL (32.0-36.0); MEAN CORPUSCULAR VOLUME 89.7 fL (80.0-94.0); MONOCYTES # (AUTO) 0.8 10^3/uL (0.0-1.0); NEUTROPHILS # (AUTO) 10.8 10^3/uL (1.5-6.6); NEUTROPHILS % (AUTO) 84.9 %; PLT - PLATELET COUNT 264 10^3/uL (130-450); RED BLOOD COUNT 5.05 10^6/uL (4.70-6.10); RED CELL DISTRIBUTION WIDTH 14.1 % (12.0-15.0); WHITE BLOOD COUNT 12.8 x10^3/uL (4.8-10.8)
[2021-04-18 02:22] LABS: ALBUMIN 3.5 g/dL (3.2-5.5); ALBUMIN/GLOBULIN RATIO 0.7 (1.0-2.2); BILIRUBIN,TOTAL 0.6 mg/dL (0.2-1.0); CALCIUM 9.5 mg/dL (8.5-10.3); CREATININE 1.2 mg/dL (0.6-1.2); POTASSIUM 3.8 mmol/L (3.5-5.0); TOTAL PROTEIN 8.3 g/dL (6.7-8.2)
[2021-04-18] MEDS ORDERED: PANTOPRAZOLE 40 MG VIAL IVP STA (02:35)
--- NOTE | 2021-04-18 03:44 | ED Physician Documentation ---
PD HPI NVD - Stated complaint Stated Complaint: C+, NAUSEA,VOMITING - Chief complaint Chief Complaint: Abd Pain - History obtained from History obtained from: Patient - Additonal information Additional information: Patient returns to the emergency department for chief complaint of nausea and vomiting. The patient was seen less than 24 hours ago for abdominal pain, hiccups, and nausea/vomiting. At that time, he was worked up extensively with labs and CT scan of the abdomen and pelvis, as well as urinalysis. Patient has a chronic indwelling Whitman catheter and was found to have some bladder wall thickening and hydronephrosis which did not appear acute. He was hemodynamically stable at that time, but was hydrated, and found to be feeling quite a bit better. He did test positive for COVID and although he did not have any respiratory complaints. The patient was started on Zofran and a PPI for his nausea and hiccups. The hiccups were noted to improve during his stay. The patient states that at home, he has still been vomiting and feels as though the Zofran is not really working for him. He states he has a sense of pain across his upper abdomen which is about the same as when he was seen about 24 hours ago. He denies development of any respiratory complaints in the meantime. He does not have any new complaints since his visit yesterday. No other complaints at this time. Review of Systems Ten Systems: 10 systems reviewed and negative Constitutional: reports: Reviewed and negative Eyes: reports: Reviewed and negative Ears: reports: Reviewed and negative Nose: reports: Reviewed and negative Throat: reports: Reviewed and negative Cardiac: reports: Reviewed and negative Respiratory: reports: Reviewed and negative GI: reports: Nausea, Vomiting, Other (hiccups) : reports: Reviewed and negative Skin: reports: Reviewed and negative Musculoskeletal: reports: Reviewed and negative Neurologic: reports: Reviewed and negative Psychiatric: reports: Reviewed and negative Endocrine: reports: Reviewed and negative Immunocompromised: reports: Reviewed and negative PD PAST MEDICAL HISTORY - Past Medical History Past Medical History: Yes Cardiovascular: None Respiratory: None Neuro: None Endocrine/Autoimmune: None GI: Cholelithiasis : Benign prostate hypertrophy, Indwelling catheter, Frequency HEENT: Chronic vision loss Psych: None Musculoskeletal: Osteoarthritis, Other Derm: None - Past Surgical History Past Surgical History: Yes General: Cholecystectomy, Colonoscopy - Present Medications Home Medications: Ambulatory Orders Medication Instructions Recorded Confirmed Tamsulosin [Flomax] 0.4 mg PO DAILY 03/24/21 04/18/21 Omeprazole 40 mg PO DAILY #30 cap 04/17/21 04/18/21 Ondansetron Odt [Zofran] 4 mg TL Q6H PRN #10 tablet 04/17/21 04/18/21 Promethazine Supp [Phenergan Supp] [address] Q6HR PRN #20 supp 04/18/21 - Allergies Allergies/Adverse Reactions: Allergies Allergy/AdvReac Type Severity Reaction Status Date / Time Opioids - Morphine Analogues AdvReac Intermediate Nausea Verified 04/18/21 02:03 - Social History Does the pt smoke?: Yes Smoking Status: Current every day smoker Does the pt drink ETOH?: No Does the pt have substance abuse?: No - Immunizations Immunizations are current?: Yes Immunizations: TDAP >10years/unknown - POLST Patient has POLST: No PD ED PE NORMAL - Vitals Vital signs reviewed: Yes - General General: Alert and oriented X 3, No acute distress, Well developed/nourished - HEENT HEENT: Atraumatic, PERRL, EOMI, Moist mucous membranes - Cardiac Cardiac: RRR, No murmur, Strong equal pulses - Respiratory Respiratory: No respiratory distress, Clear bilaterally - Abdomen Abdomen: Soft, Non tender, Non distended - Derm Derm: Normal color, Warm and dry, No rash - Extremities Extremities: No deformity, No edema, No calf tenderness / cord - Neuro Neuro: Alert and oriented X 3 - Psych Psych: Normal mood, Normal affect Results - Vitals Vitals: Vital Signs - 24 hr 04/18/21 04/18/21 04/18/21 02:03 02:32 03:16 Temperature 37.7 C Heart Rate 97 89 87 Respiratory 16 17 17 Rate Blood Pressure 122/88 H 132/78 H 133/84 H O2 Saturation 98 96 97 04/18/21 03:48 Temperature 37.6 C Heart Rate 89 Respiratory 16 Rate Blood Pressure 142/91 H O2 Saturation 99 Oxygen O2 Source Room air - Labs Labs: Laboratory Tests 04/18/21 04/18/21 02:06 02:06 WBC 12.8 H RBC 5.05 Hgb 15.3 Hct 45.3 MCV 89.7 MCH 30.3 MCHC 33.8 RDW 14.1 Plt Count 264 MPV 10.0 Neut # (Auto) 10.8 H Lymph # (Auto) 0.8 L [place] # (Auto) 0.8 Eos # (Auto) 0.3 Baso # (Auto) 0.0 Absolute Nucleated RBC 0.00 Nucleated RBC % 0.0 Sodium 141 Potassium 3.8 Chloride 99 L Carbon Dioxide 29 Anion Gap 13.0 BUN 18 Creatinine 1.2 Estimated GFR (MDRD) 61 L Glucose 138 H Calcium 9.5 Total Bilirubin 0.6 AST 43 H ALT 38 Alkaline Phosphatase 93 Total Protein 8.3 H Albumin 3.5 Globulin 4.8 H Albumin/Globulin Ratio 0.7 L Lipase 19 L PD MEDICAL DECISION MAKING - ED course Complexity details: reviewed old records, reviewed results, re-evaluated patient, considered differential, d/w patient ED course: The patient was treated symptomatically with IV fluids, droperidol, and Benadryl, after which she reported feeling much better and no longer had nausea. He was also treated with Protonix for his hiccups. His repeat laboratory studies showed a slight elevation in his white blood cell count, but otherwise, labs were largely unchanged. The patient's vital signs were stable and normal and I did not repeat the lactic acid level, given this. The patient was hydrated with 0.9 normal saline. I have prescribed for him Phenergan suppositories that he may use in conjunction with his Zofran. He is advised to continue symptomatic treatment at home and to follow-up with his primary care physician as needed. We have discussed the usual indications for return. Departure - Departure Disposition: 01 Home, Self Care Clinical Impression: COVID Vomiting Qualifiers: Vomiting type: bilious vomiting Nausea presence: with nausea Qualified Code(s): R11.14 - Bilious vomiting Condition: Stable Instructions: ED Nausea Vomiting Prescriptions: Promethazine Supp [Phenergan Supp] [address] Q6HR PRN #20 supp PRN Reason: Nausea / Vomiting Comments: Your labs do not show any significant changes in your vital signs are stable. There is no evidence of development of sepsis. Your CT scan less than 24 hours ago did not show any concerning findings with regard to this illness. There is no evidence of any severe concerning complication of COVID at this point in time. You may take the oral dissolving Zofran for nausea, as well as the rectal suppositories of Phenergan, also for nausea. Please follow-up with your primary care physician for further concerns regarding your abdominal symptoms. If the symptoms severely worsen, you may return to the emergency department for further evaluation.
[2021-04-18 03:49] VITALS: BP 142/91
== END 2021-04-18 04:25 | disposition home or self-care (01) ==
LOC: ED 01:38
DX: U07.1 COVID-19 (principal); N40.1 Benign prostatic hyperplasia with lower urinary tract symptoms; R33.8 Other retention of urine; Z96.0 Presence of urogenital implants; F17.200 Nicotine dependence, unspecified, uncomplicated
CPT/HCPCS: 36415; 80053; 83690; 85025; 96361; 96374; 96375; 99283; J1200

== ENCOUNTER 2022-09-04 20:18 | Emergency (ER) | payer OTHER ==
--- OUTSIDE RECORDS SUMMARY | 2022-09-04 22:00 | EXTERNAL MEDICAL SUMMARY RPT | Continuity of Care Document ---
Author Name Unknown Address [address] [place] [address] Phone Organization [facility] Address [address] [place] [address] Phone Results/Labs test date author facility value unit interpretation Result panel 1 (unknown) (no date) (unknown) (unknown) (no value) (units unknown) (unknown) (unknown) (no date) (unknown) (unknown) COVID-19 (units unknown) (unknown) (unknown) (no date) (unknown) (unknown) 04/13/22 (units unknown) (unknown) (unknown) (no date) (unknown) (unknown) [id number] (units unknown) (unknown) (unknown) (no date) (unknown) (unknown) 09:33 (units unknown) (unknown) (unknown) (no date) (unknown) (unknown) Accompanied by : Spouse (units unknown) (unknown) (unknown) (no date) (unknown) (unknown) Age/Sex: 66 / M Date of Service: (units unknown) (unknown) (unknown) (no date) (unknown) (unknown) Allergies (units unknown) (unknown) (unknown) (no date) (unknown) (unknown) [place] [address] (units unknown) (unknown) (unknown) (no date) (unknown) (unknown) Attending Dr: Florin Ortega MD (units unknown) (unknown) (unknown) (no date) (unknown) (unknown) BP 121/80 (units unknown) (unknown) (unknown) (no date) (unknown) (unknown) Blood Pressure Location Lt brachial (units unknown) (unknown) (unknown) (no date) (unknown) (unknown) Confirmed 05/03/22] (units unknown) (unknown) (unknown) (no date) (unknown) (unknown) : Acct:[id number] (units unknown) (unknown) (unknown) (no date) (unknown) (unknown) Dept at . (units unknown) (unknown) (unknown) (no date) (unknown) (unknown) Documented By: Florin Ortega MD 04/13/22 0928 (units unknown) (unknown) (unknown) (no date) (unknown) (unknown) Draft (units unknown) (unknown) (unknown) (no date) (unknown) (unknown) Evaluation/Scr ronda mayfield for possible COVID-19 completed?: Yes- COVID-19 CPT (units unknown) (unknown) (unknown) (no date) (unknown) (unknown) Health Managem ent reviewed with patient: No (units unknown) (unknown) (unknown) (no date) (unknown) (unknown) Health Management (u nits unknown) (unknown) (unknown) (no date) (unknown) (unknown) Intake Note: (units unknown) (unknown) (unknown) (no date) (unknown) (unknown) Intake perform ed by: Shobha Zamora (units unknown) (unknown) (unknown) (no date) (unknown) (unknown) Intake (units unknown) (unknown) (unknown) (no date) (unknown) (unknown) Intake- [facility] (units unknown) (unknown) (unknown) (no date) (unknown) (unknown) [facility] (unit s unknown) (unknown) (unknown) (no date) (unknown) (unknown) Loc: [facility] (units unknown) (unknown) (unknown) (no date) (unknown) (unknown) Medications (units unknown) (unknown) (unknown) (no date) (unknown) (unknown) Note (units unknown) (unknown) (unknown) (no date) (unknown) (unknown) Note: (units unknown) (unknown) (unknown) (no date) (unknown) (unknown) Nurse Office Visit ( units unknown) (unknown) (unknown) (no date) (unknown) (unknown) Office Procedures (u nits unknown) (unknown) (unknown) (no date) (unknown) (unknown) Opioids - Morp curly Analogues Adverse Reaction (Mild, Verified 05/03/22 08:30) (units unknown) (unknown) (unknown) (no date) (unknown) (unknown) PSA order sent to and is aware this needs to be drawn prior to next visit. (units unknown) (unknown) (unknown) (no date) (unknown) (unknown) PVR=3ml. (units unknown) (unknown) (unknown) (no date) (unknown) (unknown) PVR=5ml (units unknown) (unknown) (unknown) (no date) (unknown) (unknown) Patient: Femi Hoyt MR#: [id number] (units unknown) (unknown) (unknown) (no date) (unknown) (unknown) Position Sitting (un its unknown) (unknown) (unknown) (no date) (unknown) (unknown) Post Void Resi dual Notes: (units unknown) (unknown) (unknown) (no date) (unknown) (unknown) Pt and pt's wi fe states he has a neurology appointment on Saturday. Pt states his (units unknown) (unknown) (unknown) (no date) (unknown) (unknown) Pt sent to FO staff to schedule for NV with PVR in 1 week per voiding trial (units unknown) (unknown) (unknown) (no date) (unknown) (unknown) Pt states he h as been voiding well and present for a PVR with voiding trial. (units unknown) (unknown) (unknown) (no date) (unknown) (unknown) Pulse 84 (units unknown) (unknown) (unknown) (no date) (unknown) (unknown) Pulse Source NIBP (u nits unknown) (unknown) (unknown) (no date) (unknown) (unknown) Reason For Visit (un its unknown) (unknown) (unknown) (no date) (unknown) (unknown) Residual: post void (units unknown) (unknown) (unknown) (no date) (unknown) (unknown) Respiration 17 (unit s unknown) (unknown) (unknown) (no date) (unknown) (unknown) Signed By: (units unknown) (unknown) (unknown) (no date) (unknown) (unknown) Smoking Status : Current every day smoker (units unknown) (unknown) (unknown) (no date) (unknown) (unknown) This note may have been all or partially generated using voice recognition (units unknown) (unknown) (unknown) (no date) (unknown) (unknown) Tobacco Status (unit s unknown) (unknown) (unknown) (no date) (unknown) (unknown) Visit Reasons: NV - PVR (units unknown) (unknown) (unknown) (no date) (unknown) (unknown) Vitals (units unknown) (unknown) (unknown) (no date) (unknown) (unknown) Vomiting (units unknown) (unknown) (unknown) (no date) (unknown) (unknown) [History Confi rmed 05/03/22] (units unknown) (unknown) (unknown) (no date) (unknown) (unknown) amoxicillin Ad verse Reaction (Mild, Verified 05/03/22 08:30) (units unknown) (unknown) (unknown) (no date) (unknown) (unknown) cardiac and GI consults were with providers at . Pt understands consultation n (units unknown) (unknown) (unknown) (no date) (unknown) (unknown) end of month. Pt discharged. (units unknown) (unknown) (unknown) (no date) (unknown) (unknown) finasteride 5 mg tablet 5 mg PO DAILY 04/03/22 [History Confirmed 05/03/22] (units unknown) (unknown) (unknown) (no date) (unknown) (unknown) have occurred. If there are any questions, please contact the Medical Records (units unknown) (unknown) (unknown) (no date) (unknown) (unknown) hiccups (units unknown) (unknown) (unknown) (no date) (unknown) (unknown) may occur. Occasional wrong-word or 'sound-alike' substitutions may have (units unknown) (unknown) (unknown) (no date) (unknown) (unknown) multivitamin 1 tab PO DAILY 12/26/21 [History Confirmed 05/03/22] (units unknown) (unknown) (unknown) (no date) (unknown) (unknown) occurred due t o the inherent limitations of voice recognition software. Please (units unknown) (unknown) (unknown) (no date) (unknown) (unknown) omeprazole 40 mg capsule,delayed release 40 mg PO QPM 12/26/21 [History (units unknown) (unknown) (unknown) (no date) (unknown) (unknown) otes will need to be available at follow up OV at ends of month. Pt okay with (units unknown) (unknown) (unknown) (no date) (unknown) (unknown) polyethylene g lycol 3350 17 gram/dose oral powder (Miralax) 17 g PO BID 04/03/22 (units unknown) (unknown) (unknown) (no date) (unknown) (unknown) protocol and O V with provider (PSA/PVR/GI,CARDIAC ,NEURO consultationn notes) by (units unknown) (unknown) (unknown) (no date) (unknown) (unknown) read the note carefully and recognize, using context, where these substitutions (units unknown) (unknown) (unknown) (no date) (unknown) (unknown) rosuvastatin 5 mg tablet 5 mg PO QPM 12/26/21 [History Confirmed 05/03/22] (units unknown) (unknown) (unknown) (no date) (unknown) (unknown) software. Alth ough every effort is made to edit content, hand alterations seamstress errors (units unknown) (unknown) Result panel 2 (unknown) (no date) (unknown) (unknown) (no value) (units unknown) (unknown) (unknown) (no date) (unknown) (unknown) COVID-19 (units unknown) (unknown) (unknown) (no date) (unknown) (unknown) 04/13/22 (units unknown) (unknown) (unknown) (no date) (unknown) (unknown) [id number] (units unknown) (unknown) (unknown) (no date) (unknown) (unknown) 08/03/22 1039 (units unknown) (unknown) (unknown) (no date) (unknown) (unknown) 09:33 (units unknown) (unknown) (unknown) (no date) (unknown) (unknown) Accompanied by : Spouse (units unknown) (unknown) (unknown) (no date) (unknown) (unknown) Age/Sex: 66 / M Date of Service: (units unknown) (unknown) (unknown) (no date) (unknown) (unknown) Allergies (units unknown) (unknown) (unknown) (no date) (unknown) (unknown) [facility] Jenkins [id number] (units unknown) (unknown) (unknown) (no date) (unknown) (unknown) Attending Dr: Florin Ortega MD (units unknown) (unknown) (unknown) (no date) (unknown) (unknown) BP 121/80 (units unknown) (unknown) (unknown) (no date) (unknown) (unknown) Blood Pressure Location Lt brachial (units unknown) (unknown) (unknown) (no date) (unknown) (unknown) Confirmed 05/03/22] (units unknown) (unknown) (unknown) (no date) (unknown) (unknown) : 8 Acct:[id number] (units unknown) (unknown) (unknown) (no date) (unknown) (unknown) Dept at . (units unknown) (unknown) (unknown) (no date) (unknown) (unknown) Documented By: Florin Ortega MD 04/13/22 0928 (units unknown) (unknown) (unknown) (no date) (unknown) (unknown) Evaluation/Scr ronda mayfield for possible COVID-19 completed?: Yes- COVID-19 CPT (units unknown) (unknown) (unknown) (no date) (unknown) (unknown) Health Managem ent reviewed with patient: No (units unknown) (unknown) (unknown) (no date) (unknown) (unknown) Health Management (u nits unknown) (unknown) (unknown) (no date) (unknown) (unknown) Intake Note: (units unknown) (unknown) (unknown) (no date) (unknown) (unknown) Intake perform ed by: Shobha Zamora (units unknown) (unknown) (unknown) (no date) (unknown) (unknown) Intake (units unknown) (unknown) (unknown) (no date) (unknown) (unknown) Intake- [facility] (units unknown) (unknown) (unknown) (no date) (unknown) (unknown) [facility] (unit s unknown) (unknown) (unknown) (no date) (unknown) (unknown) Loc: [facility] (units unknown) (unknown) (unknown) (no date) (unknown) (unknown) Medications (units unknown) (unknown) (unknown) (no date) (unknown) (unknown) Note (units unknown) (unknown) (unknown) (no date) (unknown) (unknown) Note: (units unknown) (unknown) (unknown) (no date) (unknown) (unknown) Nurse Office Visit ( units unknown) (unknown) (unknown) (no date) (unknown) (unknown) Office Procedures (u nits unknown) (unknown) (unknown) (no date) (unknown) (unknown) Opioids - Morp curly Analogues Adverse Reaction (Mild, Verified 05/03/22 08:30) (units unknown) (unknown) (unknown) (no date) (unknown) (unknown) PSA order sent to and is aware this needs to be drawn prior to next visit. (units unknown) (unknown) (unknown) (no date) (unknown) (unknown) PVR=3ml. (units unknown) (unknown) (unknown) (no date) (unknown) (unknown) PVR=5ml (units unknown) (unknown) (unknown) (no date) (unknown) (unknown) Patient: Femi Hoyt MR#: [id number] (units unknown) (unknown) (unknown) (no date) (unknown) (unknown) Position Sitting (un its unknown) (unknown) (unknown) (no date) (unknown) (unknown) Post Void Resi dual Notes: (units unknown) (unknown) (unknown) (no date) (unknown) (unknown) Pt and pt's wi fe states he has a neurology appointment on Saturday. Pt states his (units unknown) (unknown) (unknown) (no date) (unknown) (unknown) Pt sent to FO staff to schedule for NV with PVR in 1 week per voiding trial (units unknown) (unknown) (unknown) (no date) (unknown) (unknown) Pt states he h as been voiding well and present for a PVR with voiding trial. (units unknown) (unknown) (unknown) (no date) (unknown) (unknown) Pulse 84 (units unknown) (unknown) (unknown) (no date) (unknown) (unknown) Pulse Source NIBP (u nits unknown) (unknown) (unknown) (no date) (unknown) (unknown) Reason For Visit (un its unknown) (unknown) (unknown) (no date) (unknown) (unknown) Residual: post void (units unknown) (unknown) (unknown) (no date) (unknown) (unknown) Respiration 17 (unit s unknown) (unknown) (unknown) (no date) (unknown) (unknown) Signed By: <Electronically signed by Florin Ortega MD> (units unknown) (unknown) (unknown) (no date) (unknown) (unknown) Signed (units unknown) (unknown) (unknown) (no date) (unknown) (unknown) Smoking Status : Current every day smoker (units unknown) (unknown) (unknown) (no date) (unknown) (unknown) This note may have been all or partially generated using voice recognition (units unknown) (unknown) (unknown) (no date) (unknown) (unknown) Tobacco Status (unit s unknown) (unknown) (unknown) (no date) (unknown) (unknown) Visit Reasons: NV - PVR (units unknown) (unknown) (unknown) (no date) (unknown) (unknown) Vitals (units unknown) (unknown) (unknown) (no date) (unknown) (unknown) Vomiting (units unknown) (unknown) (unknown) (no date) (unknown) (unknown) [History Confi rmed 05/03/22] (units unknown) (unknown) (unknown) (no date) (unknown) (unknown) amoxicillin Ad verse Reaction (Mild, Verified 05/03/22 08:30) (units unknown) (unknown) (unknown) (no date) (unknown) (unknown) ay occur. Occasional wrong-word or 'sound-alike' substitutions may have (units unknown) (unknown) (unknown) (no date) (unknown) (unknown) cardiac and GI consults were with providers at . Pt understands consultation n (units unknown) (unknown) (unknown) (no date) (unknown) (unknown) end of month. Pt discharged. (units unknown) (unknown) (unknown) (no date) (unknown) (unknown) finasteride 5 mg tablet 5 mg PO DAILY 04/03/22 [History Confirmed 05/03/22] (units unknown) (unknown) (unknown) (no date) (unknown) (unknown) have occurred. If there are any questions, please contact the Medical Records (units unknown) (unknown) (unknown) (no date) (unknown) (unknown) hiccups (units unknown) (unknown) (unknown) (no date) (unknown) (unknown) multivitamin 1 tab PO DAILY 12/26/21 [History Confirmed 05/03/22] (units unknown) (unknown) (unknown) (no date) (unknown) (unknown) occurred due t o the inherent limitations of voice recognition software. Please (units unknown) (unknown) (unknown) (no date) (unknown) (unknown) omeprazole 40 mg capsule,delayed release 40 mg PO QPM 12/26/21 [History (units unknown) (unknown) (unknown) (no date) (unknown) (unknown) otes will need to be available at follow up OV at ends of month. Pt okay with (units unknown) (unknown) (unknown) (no date) (unknown) (unknown) polyethylene g lycol 3350 17 gram/dose oral powder (Miralax) 17 g PO BID 04/03/22 (units unknown) (unknown) (unknown) (no date) (unknown) (unknown) protocol and O V with provider (PSA/PVR/GI,CARDIAC ,NEURO consultationn notes) by (units unknown) (unknown) (unknown) (no date) (unknown) (unknown) read the note carefully and recognize, using context, where these substitutions (units unknown) (unknown) (unknown) (no date) (unknown) (unknown) rosuvastatin 5 mg tablet 5 mg PO QPM 12/26/21 [History Confirmed 05/03/22] (units unknown) (unknown) (unknown) (no date) (unknown) (unknown) software. Alth ough every effort is made to edit content, hand alterations seamstress errors m (units unknown) (unknown)
--- NOTE | 2022-09-04 22:27 | ED Physician Documentation ---
History of Present Illness - Stated complaint Stated Complaint: DAVIS - Chief complaint Chief Complaint: General - History obtained from History obtained from: Patient - Additonal information Additional information: HPI from patient. Patient c/o "I ache everywhere", "balance is off", nausea without vomiting, generalized headache. Mild, dry cough. Mild dyspnea. Denies chest pain, denies fever. Symptoms x 2-3 days. Review of Systems Constitutional: reports: Myalgias, Fatigue. denies: Fever, Chills, Sweats PD PAST MEDICAL HISTORY - Past Medical History Cardiovascular: None Respiratory: None Neuro: None Endocrine/Autoimmune: None GI: Cholelithiasis : Benign prostate hypertrophy, Indwelling catheter, Frequency HEENT: Chronic vision loss Psych: None Musculoskeletal: Osteoarthritis, Other Derm: None - Past Surgical History Past Surgical History: Yes General: Cholecystectomy, Colonoscopy - Present Medications Home Medications: Ambulatory Orders Medication Instructions Recorded Confirmed Tamsulosin [Flomax] 0.4 mg PO DAILY 03/24/21 04/18/21 Omeprazole 40 mg PO DAILY #30 cap 04/17/21 04/18/21 Ondansetron Odt [Zofran] 4 mg TL Q6H PRN #10 tablet 04/17/21 04/18/21 Promethazine Supp [Phenergan Supp] 25 mg SD Q6HR PRN #20 supp 04/18/21 Ondansetron Odt [Zofran Odt] 4 mg TL Q6H PRN #10 tablet 09/05/22 - Allergies Allergies/Adverse Reactions: Allergies Allergy/AdvReac Type Severity Reaction Status Date / Time Opioids - Morphine Analogues AdvReac Intermediate Nausea Verified 04/18/21 02:03 - Social History Does the pt smoke?: Yes Smoking Status: Current every day smoker Does the pt drink ETOH?: No Does the pt have substance abuse?: No - Immunizations Immunizations are current?: Yes Immunizations: TDAP >10years/unknown - POLST Patient has POLST: No PD ED PE NORMAL - Vitals Vital signs reviewed: Yes - General General: Alert and oriented X 3, No acute distress, Well developed/nourished - HEENT HEENT: Ears normal, Moist mucous membranes, Pharynx benign - Cardiac Cardiac: RRR, No murmur - Respiratory Respiratory: No respiratory distress, Clear bilaterally - Abdomen Abdomen: Soft, Non tender Results - Vitals Vitals: Oxygen O2 Source Room air - Labs Labs: Laboratory Tests 09/04/22 22:49 Nasal Adenovirus (PCR) NOT DETECTED Nasal B. parapertussis DNA (PCR) NOT DETECTED Nasal Coronavir 229E PCR NOT DETECTED Nasal Coronavir HKU1 PCR NOT DETECTED Nasal Coronavir NL63 PCR NOT DETECTED Nasal Coronavir OC43 PCR NOT DETECTED Nasal Enterovir/Rhinovir PCR DETECTED A Nasal Influenza B PCR NOT DETECTED Nasal Influenza A PCR NOT DETECTED Nasal Parainfluen 1 PCR NOT DETECTED Nasal Parainfluen 2 PCR NOT DETECTED Nasal Parainfluen 3 PCR NOT DETECTED Nasal Parainfluen 4 PCR NOT DETECTED Nasal RSV (PCR) NOT DETECTED Nasal B.pertussis DNA PCR NOT DETECTED Nasal C.pneumoniae (PCR) NOT DETECTED Avi Human Metapneumo PCR NOT DETECTED Nasal M.pneumoniae (PCR) NOT DETECTED Nasal SARS-CoV-2 (PCR) NOT DETECTED - Rads (name of study) chest xray Relevant Findings:: Prelim report reviewed, See rad report PD Medical Decision Making - ED course Complexity details: reviewed results, re-evaluated patient, considered differential, d/w patient ED course: Normal chest xray. Viral respiratory PCR panel is positive for entero/rhinovirus only. Results d/w patient. Given 4mg TL zofran for nausea. Return precaution discussed. Departure - Departure Disposition: 01 Home, Self Care Clinical Impression: Viral syndrome Condition: Good Instructions: ED Viral Syndrome Prescriptions: Ondansetron Odt [Zofran Odt] 4 mg TL Q6H PRN #10 tablet PRN Reason: Nausea / Vomiting Comments: There were no abnormalities on the chest x-ray; specifically, there was no evidence of pneumonia. The viral swab was positive for enterovirus/rhinovirus. While these are 2 different types of viruses, they are very similar in the symptoms they cause, and the often considered some of the best examples of "common cold" viruses. While rhino viruses tend to cause upper respiratory and cold symptoms, enteroviruses can cause similar symptoms in addition to gastrointestinal symptoms such as nausea, vomiting, diarrhea. Thus, either (or both) of these viruses would account for the symptoms you have been describing. The abnormal breath sounds on exam combined with your cough, and in light of a normal chest x-ray, would suggest that the infection is limited to the upper respiratory system (as opposed to a pneumonia). These viruses are contagious but nearly always resolve without causing serious illness. Forms: Activity restrictions Discharge Date/Time: 09/05/22 00:49
[2022-09-04] MEDS ORDERED: ONDANSETRON ODT 4 MG TABLET TL STA (22:42)
[2022-09-04 23:45] LABS: CORONAVIRUS 229E-RESP PCR NOT DETECTED; CORONAVIRUS HKU1-RESP PCR NOT DETECTED; CORONAVIRUS NL63-RESP PCR NOT DETECTED; CORONAVIRUS OC43-RESP PCR NOT DETECTED; HUMAN METAPNEUMOVIRUS NOT DETECTED; SARS-CoV-2 -RESP PCR PANEL NOT DETECTED
[2022-09-04 23:46] LABS: B. PARAPERTUSSIS- RESP PCR PAN NOT DETECTED; B. PERTUSSIS- RESP PCR PANEL NOT DETECTED; C. PNEUMONIAE- RESP PCR PANEL NOT DETECTED; INFLUENZA A- RESP PCR PANEL NOT DETECTED; INFLUENZA B - RESP PCR PANEL NOT DETECTED; M. PNEUMONIAE- RESP PCR PANEL NOT DETECTED; PARAINFLUENZA VIRUS 1 NOT DETECTED; PARAINFLUENZA VIRUS 2 NOT DETECTED; PARAINFLUENZA VIRUS 3 NOT DETECTED; PARAINFLUENZA VIRUS 4 NOT DETECTED; RHINOVIRUS/ENTEROVIRUS DETECTED; RSV- RESP PCR PANEL NOT DETECTED
--- NOTE | 2022-09-05 00:11 | XRAY Report ---
PROCEDURE: Chest 2 View X-Ray INDICATIONS: cough, rhonchi on exam TECHNIQUE: 2 views of the chest were acquired. COMPARISON: Chest x-ray 04/17/2021. FINDINGS: Surgical changes and devices: None. Lungs and pleura: No pleural effusions or pneumothorax. Lungs are clear. Mediastinum: Mediastinal contours appear normal. Heart size is normal. Bones and chest wall: No suspicious bony lesions. Overlying soft tissues appear unremarkable. IMPRESSION: No acute cardiopulmonary disease. Reviewed by: Reuben Rocha MD on 09/05/2022 12:10 AM PDT Approved by: Reuben Rocha MD on 09/05/2022 12:10 AM PDT Station ID: [id number]
[2022-09-05] MEDS ORDERED: ONDANSETRON ODT 4 MG Prepack 2 TL PRN (00:31)
[2022-09-05 00:48] VITALS: BP 125/64
== END 2022-09-05 00:49 | disposition home or self-care (01) ==
LOC: ED 20:18
DX: B34.9 Viral infection, unspecified (principal); F17.200 Nicotine dependence, unspecified, uncomplicated; Z20.822 Contact with and (suspected) exposure to COVID-19
CPT/HCPCS: 71046; 87633; 99283; 99284; Q0162

== ENCOUNTER 2023-01-09 07:54 | Outpatient (CLI) | payer MEDICARE, OTHER ==
[2023-01-09 12:02] LABS: BASOPHILS # (AUTO) 0.1 10^3/uL (0.0-0.1); BASOPHILS % (AUTO) 1.1 %; EOSINOPHILS # (AUTO) 0.2 10^3/uL (0.0-0.7); EOSINOPHILS % (AUTO) 2.5 %; HCT - HEMATOCRIT 51.1 % (42.0-52.0); HGB - HEMOGLOBIN 16.6 g/dL (14.0-18.0); LYMPHOCYTES # (AUTO) 2.6 10^3/uL (1.5-3.5); MEAN CORPUSCULAR HEMOGLOBIN 30.7 pg (27.0-31.0); MEAN CORPUSCULAR HGB CONC 32.5 g/dL (32.0-36.0); MEAN CORPUSCULAR VOLUME 94.5 fL (80.0-94.0); MEAN PLATELET VOLUME 10.6 fL (7.4-11.4); MONOCYTES # (AUTO) 0.7 10^3/uL (0.0-1.0); MONOCYTES % (AUTO) 8.4 %; NEUTROPHILS # (AUTO) 4.6 10^3/uL (1.5-6.6); NEUTROPHILS % (AUTO) 55.6 %; PLT - PLATELET COUNT 239 10^3/uL (130-450); RED BLOOD COUNT 5.41 10^6/uL (4.70-6.10); RED CELL DISTRIBUTION WIDTH 14.1 % (12.0-15.0); WHITE BLOOD COUNT 8.3 x10^3/uL (4.8-10.8)
[2023-01-09 12:20] LABS: ALBUMIN 3.9 g/dL (3.2-5.5); ALBUMIN/GLOBULIN RATIO 1.1 (1.0-2.2); ALKALINE PHOSPHATASE 120 IU/L (42-121); ALT ALANINE AMINOTRANSFERASE 15 IU/L (10-60); AST ASPARTATE AMINOTRANSFERASE 17 IU/L (10-42); BILIRUBIN,TOTAL 0.5 mg/dL (0.2-1.0); BUN - BLOOD UREA NITROGEN 17 mg/dL (6-20); CALCIUM 9.5 mg/dL (8.5-10.3); CARBON DIOXIDE - CO2 29 mmol/L (21-32); CHLORIDE 107 mmol/L (101-111); CHOL/HDL RATIO 3.3 (<5.0); CHOLESTEROL 179 mg/dL; CREATININE 0.9 mg/dL (0.6-1.3); GFR - MDRD 85 (>89); GLUCOSE 109 mg/dL (74-104); HDL CHOLESTEROL 54 mg/dL; LDL CHOLESTEROL,CALCULATED 113 mg/dL; LDL/HDL RATIO 2.1 (<3.6); POTASSIUM 4.8 mmol/L (3.5-4.5); SODIUM 139 mmol/L (135-145); TOTAL PROTEIN 7.3 g/dL (6.4-8.9); TRIGLYCERIDES 62 mg/dL (48-352); VLDL CHOLESTEROL 12 mg/dL
[2023-01-09 12:27] LABS: THYROID STIMULATING HORMONE 3.56 uIU/mL (0.34-5.60)
== END 2023-01-09 07:55 | disposition home or self-care (01) ==
LOC: LAB.N 07:54
PROVIDERS: ATTEND Nurse Practitioner
DX: I10 Essential (primary) hypertension (principal); Z13.220 Encounter for screening for lipoid disorders; Z51.81 Encounter for therapeutic drug level monitoring; N40.0 Benign prostatic hyperplasia without lower urinary tract symptoms
CPT/HCPCS: 36415; 80053; 80061; 83721; 84153; 84443; 85025

== ENCOUNTER 2023-03-13 08:41 | Emergency (ER) | payer MEDICARE, OTHER ==
--- NOTE | 2023-03-13 10:50 | ED Physician Documentation ---
PD HPI URI - Stated complaint Stated Complaint: DAVIS,BODYACHES,VOMIT - Chief complaint Chief Complaint: General - History obtained from History obtained from: Patient - History of Present Illness Timing - onset: How many days ago (5) Timing duration: Days (5) Timing details: Gradual onset, Still present in ED Associated symptoms: Chills, Sweats, Nasal congestion, Productive cough Contributing factors: No: COPD / asthma Improves by: Rest. No: Medication Worsened by: Activity Recently seen: Not recently seen Review of Systems Constitutional: reports: Chills, Myalgias, Fatigue Nose: reports: Congestion. denies: Rhinorrhea / runny nose Throat: denies: Sore throat Cardiac: reports: Chest pain / pressure. denies: Palpitations, Pedal edema Respiratory: reports: Dyspnea, Cough Neurologic: reports: Generalized weakness PD PAST MEDICAL HISTORY - Past Medical History Past Medical History: Yes Cardiovascular: High cholesterol Respiratory: None Neuro: None Endocrine/Autoimmune: None GI: Cholelithiasis : Benign prostate hypertrophy, Frequency HEENT: Chronic vision loss Psych: None Musculoskeletal: Osteoarthritis, Other Derm: None - Past Surgical History Past Surgical History: Yes General: Cholecystectomy, Colonoscopy - Present Medications Home Medications: Ambulatory Orders Medication Instructions Recorded Confirmed Albuterol Sulf [Ventolin Hfa 2 - 3 puffs INH Q4HR PRN #1 each 03/13/23 Inhaler] Amoxicillin 500 mg PO TID #15 cap 03/13/23 Benzonatate [Tessalon] 100 mg PO TID PRN #20 cap 03/13/23 Finasteride [Proscar] 5 mg ORAL DAILY 03/13/23 03/13/23 Pantoprazole [Protonix] 40 mg PO DAILY 03/13/23 03/13/23 Rosuvastatin Calcium [Crestor] 5 mg PO DAILY 03/13/23 03/13/23 dexAMETHasone [Decadron] 4 mg PO DAILY #5 tablet 03/13/23 - Allergies Allergies/Adverse Reactions: Allergies Allergy/AdvReac Type Severity Reaction Status Date / Time Opioids - Morphine Analogues AdvReac Intermediate Nausea Verified 03/13/23 08:52 - Social History Does the pt smoke?: Yes Smoking Status: Current every day smoker Does the pt drink ETOH?: Yes Does the pt have substance abuse?: No - Immunizations Immunizations are current?: Yes Immunizations: TDAP >10years/unknown - POLST Patient has POLST: No PD ED PE NORMAL - Vitals Vital signs reviewed: Yes - General General: Alert and oriented X 3, Well developed/nourished - HEENT HEENT: Pharynx benign - Neck Neck: Supple, no meningeal sign, No adenopathy - Cardiac Cardiac: RRR (mild tachycardia), No murmur - Respiratory Respiratory: No respiratory distress, Clear bilaterally (but not able to take much of a breath without starting to have wheezing sounding cough. ) - Abdomen Abdomen: Soft, Non tender - Derm Derm: Normal color, Warm and dry - Extremities Extremities: No edema, No calf tenderness / cord - Neuro Neuro: Alert and oriented X 3, No motor deficit, Normal speech Results - Vitals Vitals: Oxygen O2 Source Room air - Labs Labs: Laboratory Tests 03/13/23 09:00 Nasal Adenovirus (PCR) NOT DETECTED Nasal B. parapertussis DNA (PCR) NOT DETECTED Nasal Coronavir 229E PCR NOT DETECTED Nasal Coronavir HKU1 PCR NOT DETECTED Nasal Coronavir NL63 PCR NOT DETECTED Nasal Coronavir OC43 PCR NOT DETECTED Nasal Enterovir/Rhinovir PCR NOT DETECTED Nasal Influenza B PCR NOT DETECTED Nasal Influenza A PCR NOT DETECTED Nasal Parainfluen 1 PCR NOT DETECTED Nasal Parainfluen 2 PCR NOT DETECTED Nasal Parainfluen 3 PCR NOT DETECTED Nasal Parainfluen 4 PCR NOT DETECTED Nasal RSV (PCR) NOT DETECTED Nasal B.pertussis DNA PCR NOT DETECTED Nasal C.pneumoniae (PCR) NOT DETECTED Avi Human Metapneumo PCR NOT DETECTED Nasal M.pneumoniae (PCR) NOT DETECTED Nasal SARS-CoV-2 (PCR) DETECTED A PD Medical Decision Making - ED course Complexity details: reviewed results (chest xray without infiltrates or acute process. DUration of symptoms and worsening could suggestive secondary bronchitis. ), considered differential (a week of cough and aches, fevers, with productive cough now. Feeling worse the last day. ), d/w patient Departure - Departure Disposition: 01 Home, Self Care Clinical Impression: COVID-19, Bronchitis, Dyspnea Condition: Stable Record reviewed to determine appropriate education?: Yes Prescriptions: Albuterol Sulf [Ventolin Hfa Inhaler] 2 - 3 puffs INH Q4HR PRN #1 each PRN Reason: Shortness Of Air/Wheezing Amoxicillin 500 mg PO TID #15 cap dexAMETHasone [Decadron] 4 mg PO DAILY #5 tablet Benzonatate [Tessalon] 100 mg PO TID PRN #20 cap PRN Reason: Cough Comments: Your viral panel test is positive for COVID. Negative for other viruses. It is common for COVID infection to involve the lungs and bronchioles and cause coughing and wheezing. However you do have more localized sounds on the left side. Your chest x-ray does not show a pneumonia but I still wondering if you are developing a secondary bacterial infection as well. Stay well-hydrated as you can. Use the albuterol inhaler 2 to 3 puffs 4 times daily to help with improved breathing and increased sputum out. Given the wheezing component to this we can try to help with some anti-infl ammatories as well. Add benzonatate/Tessalon if needed for cough. With the progression of your symptoms and findings, I would consider adding an antibiotic as well as there can be some secondary bacterial infection in top a of viral infection. Amoxicillin 3 times daily for 5 days. I sent your prescriptions to your preferred pharmacy. Off work today in the next couple of days. Recheck if not improving well over the next few days return if worse. Forms: PCP List, Activity restrictions Discharge Date/Time: 03/13/23 12:30
[2023-03-13 11:09] LABS: B. PARAPERTUSSIS- RESP PCR PAN NOT DETECTED; B. PERTUSSIS- RESP PCR PANEL NOT DETECTED; C. PNEUMONIAE- RESP PCR PANEL NOT DETECTED; CORONAVIRUS 229E-RESP PCR NOT DETECTED; CORONAVIRUS HKU1-RESP PCR NOT DETECTED; CORONAVIRUS NL63-RESP PCR NOT DETECTED; CORONAVIRUS OC43-RESP PCR NOT DETECTED; HUMAN METAPNEUMOVIRUS NOT DETECTED; INFLUENZA A- RESP PCR PANEL NOT DETECTED; INFLUENZA B - RESP PCR PANEL NOT DETECTED; M. PNEUMONIAE- RESP PCR PANEL NOT DETECTED; PARAINFLUENZA VIRUS 1 NOT DETECTED; PARAINFLUENZA VIRUS 2 NOT DETECTED; PARAINFLUENZA VIRUS 3 NOT DETECTED; PARAINFLUENZA VIRUS 4 NOT DETECTED; RHINOVIRUS/ENTEROVIRUS NOT DETECTED; RSV- RESP PCR PANEL NOT DETECTED; SARS-CoV-2 -RESP PCR PANEL DETECTED
[2023-03-13] MEDS ORDERED: BENZONATATE 100 MG CAPSULE PO STA (11:13)
[2023-03-13] MEDS ORDERED: dexAMETHasone 4 MG TABLET PO STA (11:13)
[2023-03-13] MEDS ORDERED: ALBUTEROL NEB 2.5 MG/3 ML INH STA (11:13)
[2023-03-13] MEDS ORDERED: ALBUTEROL 1 PUFF INH STA (11:53)
--- NOTE | 2023-03-13 11:59 | XRAY Report ---
PROCEDURE: Chest 1 View X-Ray INDICATIONS: dyspnea, cough TECHNIQUE: One view of the chest was acquired. COMPARISON: Chest rated graft on September 04, 2022. FINDINGS: Surgical changes and devices: None. Lungs and pleura: No pleural effusions or pneumothorax. Lungs are clear. Mediastinum: Mediastinal contours appear normal. Heart size is normal. Bones and chest wall: No suspicious bony lesions. Overlying soft tissues appear unremarkable. Chitra cystectomy clips. IMPRESSION: No acute cardiopulmonary process. Reviewed by: Kristin Kiser MD on 03/13/2023 11:57 AM PST Approved by: Kristin Kiser MD on 03/13/2023 11:57 AM PST Station ID: [id number]
[2023-03-13 12:23] VITALS: BP 160/92; O2SAT 96
== END 2023-03-13 12:30 | disposition home or self-care (01) ==
LOC: ED 08:41
DX: U07.1 COVID-19 (principal); J40 Bronchitis, not specified as acute or chronic; Z11.52 Encounter for screening for COVID-19; F17.200 Nicotine dependence, unspecified, uncomplicated; Z79.899 Other long term (current) drug therapy; E78.00 Pure hypercholesterolemia, unspecified
CPT/HCPCS: 71045; 87633; 94640; 99284; A9270; J8540

== ENCOUNTER 2023-03-21 06:10 | Emergency (ER) | payer MEDICARE, OTHER ==
--- NOTE | 2023-03-21 07:28 | ED Physician Documentation ---
PD HPI URI - Stated complaint Stated Complaint: NAUSEA/HEAD PX - Chief complaint Chief Complaint: General - History obtained from History obtained from: Patient - History of Present Illness Timing - onset: How many days ago (having headache for about 1 1/2 weeks with COVID infection. Also cough and dyspnea. Having fatigue and aches. Now with few days of nausea and hiccups since yesterdy.) Timing duration: Days Timing details: Gradual onset, Still present Associated symptoms: Chills, Dry cough, Dyspnea. No: Fever, Sore throat, NVD Contributing factors: Other (COVID infection) Recently seen: Emergency Dept Review of Systems Constitutional: reports: Chills, Myalgias, Fatigue Throat: denies: Sore throat Cardiac: denies: Chest pain / pressure Respiratory: reports: Dyspnea, Cough GI: reports: Nausea, Diarrhea, Other (hiccups). denies: Abdominal Pain, Vomiting, Constipation PD PAST MEDICAL HISTORY - Past Medical History Cardiovascular: High cholesterol Respiratory: None Neuro: None Endocrine/Autoimmune: None GI: Cholelithiasis : Benign prostate hypertrophy, Frequency HEENT: Chronic vision loss Psych: None Musculoskeletal: Osteoarthritis, Other Derm: None - Past Surgical History Past Surgical History: Yes General: Cholecystectomy, Colonoscopy - Present Medications Home Medications: Ambulatory Orders Medication Instructions Recorded Confirmed Albuterol Sulf [Ventolin Hfa 2 - 3 puffs INH Q4HR PRN #1 each 03/13/23 Inhaler] Amoxicillin 500 mg PO TID #15 cap 03/13/23 Benzonatate [Tessalon] 100 mg PO TID PRN #20 cap 03/13/23 Finasteride [Proscar] 5 mg ORAL DAILY 03/13/23 03/13/23 Pantoprazole [Protonix] 40 mg PO DAILY 03/13/23 03/13/23 Rosuvastatin Calcium [Crestor] 5 mg PO DAILY 03/13/23 03/13/23 dexAMETHasone [Decadron] 4 mg PO DAILY #5 tablet 03/13/23 Famotidine [Pepcid] 20 mg PO BID #20 tablet 03/21/23 Ondansetron Odt [Zofran] 4 mg TL Q6H PRN #15 tablet 03/21/23 Promethazine [Phenergan] 25 mg PO Q6H PRN #15 tab 03/21/23 - Allergies Allergies/Adverse Reactions: Allergies Allergy/AdvReac Type Severity Reaction Status Date / Time Opioids - Morphine Analogues AdvReac Intermediate Nausea Verified 03/21/23 07:21 - Social History Does the pt smoke?: Yes Smoking Status: Current every day smoker Does the pt drink ETOH?: Yes Does the pt have substance abuse?: No - Immunizations Immunizations are current?: Yes Immunizations: TDAP >10years/unknown - POLST Patient has POLST: No PD ED PE NORMAL - Vitals Vital signs reviewed: Yes - General General: Alert and oriented X 3, No acute distress, Well developed/nourished - Neck Neck: Supple, no meningeal sign, No adenopathy - Cardiac Cardiac: RRR, No murmur - Respiratory Respiratory: Clear bilaterally - Abdomen Abdomen: Normal bowel sounds, Soft, Non distended, Other (some tender without guarding epigastric. RUQ not tender locally. ) - Derm Derm: Normal color, Warm and dry - Extremities Extremities: No edema, No calf tenderness / cord - Neuro Neuro: Alert and oriented X 3, No motor deficit, Normal speech Results - Vitals Vitals: Oxygen O2 Source Room air - Labs Labs: Laboratory Tests 03/21/23 03/21/23 03/21/23 07:00 07:30 07:30 WBC 8.9 RBC 5.12 Hgb 15.7 Hct 46.7 MCV 91.2 MCH 30.7 MCHC 33.6 RDW 13.9 Plt Count 235 MPV 9.7 Neut # (Auto) 6.0 Lymph # (Auto) 1.8 [place] # (Auto) 0.8 Eos # (Auto) 0.2 Baso # (Auto) 0.1 Absolute Nucleated RBC 0.00 Nucleated RBC % 0.0 Sodium 140 Potassium 3.9 Chloride 106 Carbon Dioxide 31 Anion Gap 3.0 L BUN 14 Creatinine 0.9 Estimated GFR (MDRD) 85 L Glucose 95 Calcium 9.2 Magnesium 2.0 Total Bilirubin 0.6 AST 17 ALT 30 Alkaline Phosphatase 90 Total Protein 6.3 L Albumin 3.4 Globulin 2.9 Albumin/Globulin Ratio 1.2 Lipase < 10 L PD Medical Decision Making - ED course Complexity details: reviewed results (LFTs and lipase are normal. Hiccups improved mostly with antacid PO. [place] improved with zofran. Presume GI symptoms from COVID along with Paxlovid. He is done the paxlovid anyway. DAVIS but does not seem meningitic. ), considered differential (had COVID and has had cough that is slowly improving, Still with weakness and dyspnea, fatigue. Having now nausea and hiccups the past 2 days. ), d/w patient ED course: I think his hiccups are gastritis. No rmal LFTs and Lipase. Not tener in lower abd. Improved with myalnta and Zofran. DAVIS also improved with fluids and Toradol. I do not feel pt is presenting as miningitis/encephalitis and does not need diagnostic CT nor LP. Pt is in agreement with my assessment. Departure - Departure Disposition: 01 Home, Self Care Clinical Impression: Nausea, Hiccups, Myalgia, COVID-19 Condition: Stable Instructions: ED Nausea Vomiting Follow-Up: Ivon Tran ARNP [Primary Care Provider] - Prescriptions: Famotidine [Pepcid] 20 mg PO BID #20 tablet Promethazine [Phenergan] 25 mg PO Q6H PRN #15 tab PRN Reason: Nausea / Vomiting Ondansetron Odt [Zofran] 4 mg TL Q6H PRN #15 tablet PRN Reason: Nausea / Vomiting Comments: Your basic blood tests are good here with normal kidney function, liver and pancreas function, electrolytes, blood sugar. These would be potential other causes for nausea and hiccups so no signs of abnormality there. The more common causes of the nausea and hiccups and poor intake are just irritation of the stomach. This can be common enough related to COVID in addition to the muscle aches and cough that you will have for a month or so. For the nausea and hiccups, I would suggest acid reducing medicine such as famotidine twice daily for the next 10 days. To that add nausea medicines of ondansetron every 6 hours if needed. If that does not effective enough, he can add promethazine/Phenergan. Additionally I would suggest some acid reducing medicine periodically as needed for discomfort or hiccups 2. I would anticipate improvement over the next few days and largely in the next day or 2. I wrote prescriptions to your preferred pharmacy. Off work today and tomorrow due to symptoms. Add Tylenol 500 to 650 mg every 4-6 hours if needed for pains. Forms: PCP List Discharge Date/Time: 03/21/23 09:22
[2023-03-21 07:37] LABS: BASOPHILS # (AUTO) 0.1 10^3/uL (0.0-0.1); BASOPHILS % (AUTO) 0.6 %; EOSINOPHILS # (AUTO) 0.2 10^3/uL (0.0-0.7); EOSINOPHILS % (AUTO) 2.2 %; HCT - HEMATOCRIT 46.7 % (42.0-52.0); HGB - HEMOGLOBIN 15.7 g/dL (14.0-18.0); LYMPHOCYTES # (AUTO) 1.8 10^3/uL (1.5-3.5); LYMPHOCYTES % (AUTO) 20.5 %; MEAN CORPUSCULAR HEMOGLOBIN 30.7 pg (27.0-31.0); MEAN CORPUSCULAR HGB CONC 33.6 g/dL (32.0-36.0); MEAN CORPUSCULAR VOLUME 91.2 fL (80.0-94.0); MEAN PLATELET VOLUME 9.7 fL (7.4-11.4); MONOCYTES # (AUTO) 0.8 10^3/uL (0.0-1.0); MONOCYTES % (AUTO) 8.4 %; NEUTROPHILS % (AUTO) 66.7 %; PLT - PLATELET COUNT 235 10^3/uL (130-450); RED BLOOD COUNT 5.12 10^6/uL (4.70-6.10); RED CELL DISTRIBUTION WIDTH 13.9 % (12.0-15.0); WHITE BLOOD COUNT 8.9 x10^3/uL (4.8-10.8)
[2023-03-21] MEDS ORDERED: SODIUM CHLORIDE 0.9% 1,000 ML IV STA (07:47)
[2023-03-21] MEDS ORDERED: MAG HYDROX/AL HYDROX/SIMETH 30 ML UDC PO STA (07:47)
[2023-03-21] MEDS ORDERED: ONDANSETRON 4 MG/2 ML VIAL IVP STA (07:47)
[2023-03-21] MEDS ORDERED: KETOROLAC 15 MG/ML VIAL IVP STA (07:47)
[2023-03-21] MEDS ORDERED: FAMOTIDINE 20 MG/2 ML VIAL IVP STA (07:47)
[2023-03-21 07:49] LABS: ALBUMIN 3.4 g/dL (3.2-5.5); ALBUMIN/GLOBULIN RATIO 1.2 (1.0-2.2); ALKALINE PHOSPHATASE 90 IU/L (42-121); ALT ALANINE AMINOTRANSFERASE 30 IU/L (10-60); AST ASPARTATE AMINOTRANSFERASE 17 IU/L (10-42); BILIRUBIN,TOTAL 0.6 mg/dL (0.2-1.0); BUN - BLOOD UREA NITROGEN 14 mg/dL (6-20); CALCIUM 9.2 mg/dL (8.5-10.3); CARBON DIOXIDE - CO2 31 mmol/L (21-32); CHLORIDE 106 mmol/L (101-111); CREATININE 0.9 mg/dL (0.6-1.3); GFR - MDRD 85 (>89); GLUCOSE 95 mg/dL (74-104); POTASSIUM 3.9 mmol/L (3.5-4.5); SODIUM 140 mmol/L (135-145); TOTAL PROTEIN 6.3 g/dL (6.4-8.9)
[2023-03-21 07:55] LABS: LIPASE < 10 U/L (11-82)
[2023-03-21 09:14] VITALS: BP 152/86; O2SAT 100
== END 2023-03-21 09:22 | disposition home or self-care (01) ==
LOC: ED 06:10
DX: U07.1 COVID-19 (principal); R06.6 Hiccough; F17.200 Nicotine dependence, unspecified, uncomplicated
CPT/HCPCS: 36415; 80053; 83690; 83735; 85025; 96374; 99283; 99284; A9270

== ENCOUNTER 2023-05-30 05:46 | Emergency (ER) | payer MEDICARE, OTHER ==
[2023-05-30 06:23] LABS: BASOPHILS # (AUTO) 0.1 10^3/uL (0.0-0.1); BASOPHILS % (AUTO) 0.9 %; EOSINOPHILS # (AUTO) 0.2 10^3/uL (0.0-0.7); EOSINOPHILS % (AUTO) 2.6 %; HCT - HEMATOCRIT 50.1 % (42.0-52.0); HGB - HEMOGLOBIN 16.4 g/dL (14.0-18.0); LYMPHOCYTES # (AUTO) 1.7 10^3/uL (1.5-3.5); LYMPHOCYTES % (AUTO) 19.7 %; MEAN CORPUSCULAR HEMOGLOBIN 30.3 pg (27.0-31.0); MEAN CORPUSCULAR HGB CONC 32.7 g/dL (32.0-36.0); MEAN CORPUSCULAR VOLUME 92.4 fL (80.0-94.0); MEAN PLATELET VOLUME 9.8 fL (7.4-11.4); MONOCYTES # (AUTO) 0.6 10^3/uL (0.0-1.0); MONOCYTES % (AUTO) 6.7 %; NEUTROPHILS # (AUTO) 6.1 10^3/uL (1.5-6.6); NEUTROPHILS % (AUTO) 69.8 %; PLT - PLATELET COUNT 230 10^3/uL (130-450); RED BLOOD COUNT 5.42 10^6/uL (4.70-6.10); RED CELL DISTRIBUTION WIDTH 14.1 % (12.0-15.0); WHITE BLOOD COUNT 8.7 x10^3/uL (4.8-10.8)
[2023-05-30 06:37] LABS: ALBUMIN/GLOBULIN RATIO 1.2 (1.0-2.2); ALKALINE PHOSPHATASE 120 IU/L (42-121); ALT ALANINE AMINOTRANSFERASE 11 IU/L (10-60); AST ASPARTATE AMINOTRANSFERASE 13 IU/L (10-42); BILIRUBIN,TOTAL 0.5 mg/dL (0.2-1.0); BUN - BLOOD UREA NITROGEN 10 mg/dL (6-20); CALCIUM 9.6 mg/dL (8.5-10.3); CARBON DIOXIDE - CO2 27 mmol/L (21-32); CHLORIDE 104 mmol/L (101-111); CREATININE 0.9 mg/dL (0.6-1.3); GFR - MDRD 85 (>89); GLUCOSE 111 mg/dL (74-104); POTASSIUM 3.7 mmol/L (3.5-4.5); SODIUM 137 mmol/L (135-145); TOTAL PROTEIN 7.3 g/dL (6.4-8.9)
[2023-05-30 06:46] LABS: LIPASE < 10 U/L (11-82)
[2023-05-30] MEDS: SODIUM CHLORIDE 0.9% 1,000 ML IV STA (07:38)
--- NOTE | 2023-05-30 07:44 | ED Physician Documentation ---
History of Present Illness - Stated complaint Stated Complaint: DIZZY - Chief complaint Chief Complaint: Abd Pain - History obtained from History obtained from: Patient - Additonal information Additional information: Patient comes to the emergency department chief complaint of "I just been feeling rundown for the last few days". The patient states he has some occasional chills but no measured fevers. He states he is generally fairly healthy person but he does smoke. However, he has not had a cough, shortness of breath, or chest pain. No GI symptoms. He states he does work at the [employer] on [address] so he is exposed to a lot of people. He has not had any specific sick contacts that he knows of, but states that a lot of people come in coughing and sniffing and he thinks he may have been exposed to somebody sick while at work. The patient denies any other specific symptoms, however. The patient states that he tries to drink water throughout the day but may not be getting enough. No other complaints at this time. PD PAST MEDICAL HISTORY - Past Medical History Cardiovascular: High cholesterol Respiratory: None Neuro: None Endocrine/Autoimmune: None GI: Cholelithiasis : Benign prostate hypertrophy, Frequency HEENT: Chronic vision loss Psych: None Musculoskeletal: Osteoarthritis, Other Derm: None - Past Surgical History Past Surgical History: Yes General: Cholecystectomy, Colonoscopy - Present Medications Home Medications: Ambulatory Orders Medication Instructions Recorded Confirmed Finasteride [Proscar] 5 mg ORAL DAILY 03/13/23 05/30/23 Pantoprazole [Protonix] 40 mg PO DAILY 03/13/23 05/30/23 Rosuvastatin Calcium [Crestor] 5 mg PO DAILY 03/13/23 05/30/23 Mv-Min/Folic/K1/Lycopen/Lutein 1 tab PO DAILY 05/30/23 05/30/23 [Centrum Silver Men Tablet] - Allergies Allergies/Adverse Reactions: Allergies Allergy/AdvReac Type Severity Reaction Status Date / Time Opioids - Morphine Analogues AdvReac Intermediate Nausea Verified 05/30/23 05:57 - Social History Does the pt smoke?: Yes Smoking Status: Current every day smoker Does the pt drink ETOH?: Yes Does the pt have substance abuse?: No - Immunizations Immunizations are current?: Yes Immunizations: TDAP >10years/unknown - POLST Patient has POLST: No PD ED PE NORMAL - Vitals Vital signs reviewed: Yes - General General: Alert and oriented X 3, No acute distress, Well developed/nourished, Other ( Well-appearing and in no apparent distress.) - HEENT HEENT: Atraumatic, PERRL, EOMI, Moist mucous membranes - Neck Neck: Supple, no meningeal sign - Cardiac Cardiac: RRR, No murmur - Respiratory Respiratory: No respiratory distress, Clear bilaterally - Abdomen Abdomen: Soft, Non tender, Non distended - Derm Derm: Normal color, Warm and dry, No rash - Extremities Extremities: No deformity, No edema - Neuro Neuro: Alert and oriented X 3, Other (No gross deficits) - Psych Psych: Normal mood, Normal affect Results - Vitals Vitals: Oxygen O2 Source Room air - Labs Labs: Laboratory Tests 05/30/23 05/30/23 05/30/23 06:15 06:15 06:37 WBC 8.7 RBC 5.42 Hgb 16.4 Hct 50.1 MCV 92.4 MCH 30.3 MCHC 32.7 RDW 14.1 Plt Count 230 MPV 9.8 Neut # (Auto) 6.1 Lymph # (Auto) 1.7 [place] # (Auto) 0.6 Eos # (Auto) 0.2 Baso # (Auto) 0.1 Absolute Nucleated RBC 0.00 Nucleated RBC % 0.0 Sodium 137 Potassium 3.7 Chloride 104 Carbon Dioxide 27 Anion Gap 6.0 BUN 10 Creatinine 0.9 Estimated GFR (MDRD) 85 L Glucose 111 H Calcium 9.6 Total Bilirubin 0.5 AST 13 ALT 11 Alkaline Phosphatase 120 Total Protein 7.3 Albumin 4.0 Globulin 3.3 Albumin/Globulin Ratio 1.2 Lipase < 10 L Urine Color Urine Clarity Urine pH Ur Specific [place] Urine Protein Urine Glucose (UA) Urine Ketones Urine Occult Blood Urine Nitrite Urine Bilirubin Urine Urobilinogen Ur Leukocyte Esterase Ur Microscopic Review Urine Culture Comments Nasal Adenovirus (PCR) NOT DETECTED Nasal B. parapertussis DNA (PCR) NOT DETECTED Nasal Coronavir 229E PCR NOT DETECTED Nasal Coronavir HKU1 PCR NOT DETECTED Nasal Coronavir NL63 PCR NOT DETECTED Nasal Coronavir OC43 PCR NOT DETECTED Nasal Enterovir/Rhinovir PCR NOT DETECTED Nasal Influenza B PCR NOT DETECTED Nasal Influenza A PCR NOT DETECTED Nasal Parainfluen 1 PCR NOT DETECTED Nasal Parainfluen 2 PCR NOT DETECTED Nasal Parainfluen 3 PCR NOT DETECTED Nasal Parainfluen 4 PCR NOT DETECTED Nasal RSV (PCR) NOT DETECTED Nasal B.pertussis DNA PCR NOT DETECTED Nasal C.pneumoniae (PCR) NOT DETECTED Avi Human Metapneumo PCR NOT DETECTED Nasal M.pneumoniae (PCR) NOT DETECTED Nasal SARS-CoV-2 (PCR) NOT DETECTED 05/30/23 08:21 WBC RBC Hgb Hct MCV MCH MCHC RDW Plt Count MPV Neut # (Auto) Lymph # (Auto) [place] # (Auto) Eos # (Auto) Baso # (Auto) Absolute Nucleated RBC Nucleated RBC % Sodium Potassium Chloride Carbon Dioxide Anion Gap BUN Creatinine Estimated GFR (MDRD) Glucose Calcium Total Bilirubin AST ALT Alkaline Phosphatase Total Protein Albumin Globulin Albumin/Globulin Ratio Lipase Urine Color YELLOW Urine Clarity CLEAR Urine pH 6.0 Ur Specific [place] 1.020 Urine Protein NEGATIVE Urine Glucose (UA) NEGATIVE Urine Ketones NEGATIVE Urine Occult Blood NEGATIVE Urine Nitrite NEGATIVE Urine Bilirubin NEGATIVE Urine Urobilinogen 0.2 (NORMAL) Ur Leukocyte Esterase NEGATIVE Ur Microscopic Review NOT INDICATED Urine Culture Comments NOT INDICATED Nasal Adenovirus (PCR) Nasal B. parapertussis DNA (PCR) Nasal Coronavir 229E PCR Nasal Coronavir HKU1 PCR Nasal Coronavir NL63 PCR Nasal Coronavir OC43 PCR Nasal Enterovir/Rhinovir PCR Nasal Influenza B PCR Nasal Influenza A PCR Nasal Parainfluen 1 PCR Nasal Parainfluen 2 PCR Nasal Parainfluen 3 PCR Nasal Parainfluen 4 PCR Nasal RSV (PCR) Nasal B.pertussis DNA PCR Nasal C.pneumoniae (PCR) Avi Human Metapneumo PCR Nasal M.pneumoniae (PCR) Nasal SARS-CoV-2 (PCR) PD Medical Decision Making - ED course Complexity details: reviewed results, re-evaluated patient, considered differential, d/w patient ED course: The patient overall was well-appearing in the emergency department, but he was worked up with labs and urinalysis, as well as respiratory PCR panel, and given a liter 0.9 normal saline. He did not have any focal Symptoms to indicate more focused workup at this time. Work-up negative. Pt is feeling better, and stable for d/c home. I suspect some degree of dehydration, and we have discussed the importance of adequate fluid intake. Departure - Departure Disposition: Home, Self Care Clinical Impression: Dehydration Fatigue Qualifiers: Fatigue type: unspecified Qualified Code(s): R53.83 - Other fatigue Condition: Stable Instructions: ED Dehydration, ED Weakness [facility] Comments: Your labs look good. Your viral panel is negative. Is not clear exactly why you are feeling fatigued, although you were found to be somewhat dehydrated and this is probably contributing. Please be sure you are drinking plenty of fluids every day, which would be 8 to 10 cups of water each day. Please follow-up with your primary doctor as needed. Forms: PCP List, Activity restrictions Discharge Date/Time: 05/30/23 09:41
[2023-05-30 07:59] LABS: B. PARAPERTUSSIS- RESP PCR PAN NOT DETECTED; B. PERTUSSIS- RESP PCR PANEL NOT DETECTED; C. PNEUMONIAE- RESP PCR PANEL NOT DETECTED; CORONAVIRUS 229E-RESP PCR NOT DETECTED; CORONAVIRUS HKU1-RESP PCR NOT DETECTED; CORONAVIRUS NL63-RESP PCR NOT DETECTED; CORONAVIRUS OC43-RESP PCR NOT DETECTED; HUMAN METAPNEUMOVIRUS NOT DETECTED; INFLUENZA A- RESP PCR PANEL NOT DETECTED; INFLUENZA B - RESP PCR PANEL NOT DETECTED; M. PNEUMONIAE- RESP PCR PANEL NOT DETECTED; PARAINFLUENZA VIRUS 1 NOT DETECTED; PARAINFLUENZA VIRUS 2 NOT DETECTED; PARAINFLUENZA VIRUS 3 NOT DETECTED; PARAINFLUENZA VIRUS 4 NOT DETECTED; RHINOVIRUS/ENTEROVIRUS NOT DETECTED; RSV- RESP PCR PANEL NOT DETECTED; SARS-CoV-2 -RESP PCR PANEL NOT DETECTED
[2023-05-30 08:30] LABS: BILIRUBIN,URINE NEGATIVE (NEGATIVE); GLUCOSE, URINE (UA) NEGATIVE (NEGATIVE); KETONES,URINE (UA) NEGATIVE (NEGATIVE); LEUKOCYTE ESTERASE, URINE NEGATIVE (NEGATIVE); NITRITE,URINE NEGATIVE (NEGATIVE); OCCULT BLOOD,URINE NEGATIVE (NEGATIVE); PROTEIN,URINE NEGATIVE (NEGATIVE); UROBILINOGEN,URINE 0.2 (NORMAL) E.U./dL (NORMAL)
[2023-05-30 08:38] LABS: CLARITY,URINE CLEAR (CLEAR)
[2023-05-30 09:48] VITALS: BP 133/87; O2SAT 99
== END 2023-05-30 09:41 | disposition home or self-care (01) ==
LOC: ED 05:46
DX: E86.0 Dehydration (principal); R53.83 Other fatigue; F17.200 Nicotine dependence, unspecified, uncomplicated
CPT/HCPCS: 36415; 80053; 81001; 81003; 83690; 85025; 87086; 87633; 96360; 99283